=== PATIENT | female | born 1995 | race Caucasian/White ===

== ENCOUNTER 2016-08-05 16:10 | Emergency (ER) | payer BC ==
[2016-08-05 16:20] VITALS: TEMP 98.5
[2016-08-05] MEDS ORDERED: IPRATROPIUM-ALBUTEROL 3 ML NEB INHALATION STA (17:27)
[2016-08-05] MEDS ORDERED: SODIUM CHLORIDE 0.9% 1,000 ML IV STA (17:27)
[2016-08-05] MEDS ORDERED: methylPREDNISolone SOD SUCCI 125 MG/2 ML VIAL IV STA (17:27)
[2016-08-05] MEDS ORDERED: IBUPROFEN 800 MG TAB PO STA (18:05)
[2016-08-05] MEDS ORDERED: ACETAMINOPHEN TAB 500 MG TAB PO STA (18:05)
--- NOTE | 2016-08-05 18:06 | ED ---
URI HPI - General Chief Complaint: Upper Respiratory Infection Stated Complaint: Cough/Wheezing Time Seen by Provider: 08/05/16 17:08 Source: patient, RN notes reviewed, old records reviewed Mode of arrival: ambulatory Limitations: no limitations - History of Present Illness Initial Comments: This is a 21-year-old female with chief complaint of cough and shortness of breath and wheezing for the past month and a half. Patient reports that she is a smoker. She reports that she was diagnosed with asthmatic bronchitis approximately a month and a half ago and was started on by mouth steroids and antibiotics. Patient reports that 3 days after taking these she return to her current status. She reports that she was been doing albuterol breathing treatments at home. She also reports that she's been extremely fatigued over the past 2 days. Patient denies any nausea or vomiting. He denies abdominal pain. She reports that she does have some pain on her bilateral ribs whenever taking a deep breath. She states that she she may have pneumonia. She did have intermittent fever yesterday. No Motrin or Tylenol. - Related Data Home Medications Medication Instructions Recorded Confirmed Sertraline [Zoloft] 100 mg PO HS 11/21/14 08/05/16 Albuterol Nebulized [Ventolin 2.5 mg INHALATION RT-Q6H PRN 12/21/14 08/05/16 Nebulized] Albuterol Inhaler [Ventolin Hfa 1 - 2 puff INHALATION RT-Q6H PRN 11/12/15 Inhaler] Fluticasone Propionate 2 spray EA NOSTRIL DAILY PRN 11/12/15 08/05/16 cloNIDine HCL [Catapres] 0.2 mg PO HS 11/12/15 08/05/16 Previous Rx's Medication Instructions Recorded Ipratropium-Albuterol Nebulize 3 ml INHALATION Q4H #30 neb 08/05/16 [Duoneb 0.5 mg-3 mg/3 ml Soln] Levofloxacin [Levaquin] 750 mg PO DAILY #5 tab 08/05/16 Promethazine/Dextromethorphan 5 ml PO TID #120 ml 08/05/16 [Phenergan DM Syrup] predniSONE 50 mg PO DAILY #7 tab 08/05/16 Allergies Allergy/AdvReac Type Severity Reaction Status Date / Time latex Allergy Rash/Hives Verified 08/05/16 17:33 Review of Systems ROS Statement: Those systems with pertinent positive or pertinent negative responses have been documented in the HPI. ROS Other: All systems not noted in ROS Statement are negative. Past Medical History Past Medical History: Asthma, GERD/Reflux, Pneumonia Additional Past Medical History / Comment(s): anxiety and depression. UTI'S, MIGRAINES, colitis History of Any Multi-Drug Resistant Organisms: None Reported Past Surgical History: No Surgical Hx Reported Past Anesthesia/Blood Transfusion Reactions: No Reported Reaction Additional Past Anesthesia/Blood Transfusion Reaction / Comment(s): NEVER HAD ANY SX Past Psychological History: Anxiety, Depression Additional Psychological History / Comment(s): currently gets counseling yumiko purcell at [facility] in [place]. Is an ongoing tobacco smoker. Did not relate to recreational drug use. Smoking Status: Current every day smoker Past Alcohol Use History: None Reported Additional Past Alcohol Use History / Comment(s): STARTED SMOKING AT AGE 14 SMOKES 1/2 PPD Past Drug Use History: None Reported - Past Family History Father Family Medical History: No Reported History Additional Family Medical History / Comment(s): SEASONAL DEPRESSION Mother Family Medical History: COPD Additional Family Medical History / Comment(s): LEAKY HEART VALVE. ON MOMS SIDE OF FAMILY SKIN CANCER Sister(s) Family Medical History: No Reported History General Exam Limitations: no limitations General appearance: alert Head exam: Present: atraumatic, normocephalic, normal inspection Eye exam: Present: normal appearance, PERRL, EOMI. Absent: scleral icterus, conjunctival injection, periorbital swelling ENT exam: Present: normal exam, mucous membranes moist Neck exam: Present: normal inspection. Absent: tenderness, meningismus, lymphadenopathy Respiratory exam: Present: normal lung sounds bilaterally, wheezes (Patient has significant bilateral wheezing and rhonchi.). Absent: respiratory distress, rales, rhonchi, stridor Cardiovascular Exam: Present: regular rate, normal rhythm, normal heart sounds. Absent: systolic murmur, diastolic murmur, rubs, gallop, clicks GI/Abdominal exam: Present: soft, normal bowel sounds. Absent: distended, tenderness, guarding, rebound, rigid Extremities exam: Present: normal inspection, full ROM, normal capillary refill. Absent: tenderness, pedal edema, joint swelling, calf tenderness Back exam: Present: normal inspection Neurological exam: Present: alert, oriented X3, CN II-XII intact Psychiatric exam: Present: normal affect, normal mood Skin exam: Present: warm, dry, intact, normal color. Absent: rash Course Vital Signs 08/05/16 08/05/16 08/05/16 16:17 17:47 17:48 Temperature 98.5 F Pulse Rate 108 H 95 Respiratory 20 16 Rate Blood Pressure 120/80 O2 Sat by Pulse 95 Oximetry 08/05/16 08/05/16 18:06 19:24 Temperature Pulse Rate 96 105 H Respiratory 20 Rate Blood Pressure 130/67 O2 Sat by Pulse 99 Oximetry Medical Decision Making - Medical Decision Making This is a 21-year-old female with chief complaint of cough and shortness of breath and wheezing for the past month and a half. Patient reports that she is a smoker. She reports that she was diagnosed with asthmatic bronchitis approximately a month and a half ago and was started on by mouth steroids and antibiotics. Patient reports that 3 days after taking these she return to her current status. She reports that she was been doing albuterol breathing treatments at home. She also reports that she's been extremely fatigued over the past 2 days. Patient has significant rhonchi and wheezing. Given double duoneb treatment IV steroids, fluids, and labs obtained. Labs relatively unremarkable, mild leukocytsis. Patient has a clear CXR no pneumonia present. However givne patient clinical presentation, I will treat patient for pneumonia with steriod, levaquin, and douneb breathing treatment and cough syrup. Discussed the importance of quitting smoking. Patient understands treatment plan and will comply. Return parameters discussed, as well as close follow up with PCP. - Lab Data Result diagrams: 08/05/16 18:00 08/05/16 18:00 Lab Results 08/05/16 08/05/16 08/05/16 Range/Units 18:00 18:00 18:00 WBC 11.9 H (4.0-11.0) k/uL RBC 5.19 (3.80-5.40) m/uL Hgb 15.7 (11.4-16.0) gm/dL Hct 48.1 H (34.0-46.0) % MCV 92.6 (80.0-100.0) fL MCH 30.2 (25.0-35.0) pg MCHC 32.6 (31.0-37.0) g/dL RDW 13.7 (11.5-15.5) % Plt Count 336 (150-450) k/uL Neutrophils % 65 % Lymphocytes % 22 % Monocytes % 4 % Eosinophils % 7 % Basophils % 1 % Neutrophils # 7.7 (1.3-7.7) k/uL Lymphocytes # 2.6 (1.0-4.8) k/uL Monocytes # 0.4 (0-1.0) k/uL Eosinophils # 0.9 H (0-0.7) k/uL Basophils # 0.1 (0-0.2) k/uL PT 10.5 (9.0-12.0) sec INR 1.0 (<1.1) APTT 24.6 (22.0-30.0) sec D-Dimer 0.34 (<0.60) mg/L FEU Sodium 141 (137-145) mmol/L Potassium 4.6 (3.5-5.1) mmol/L Chloride 104 (98-107) mmol/L Carbon Dioxide 26 (22-30) mmol/L Anion Gap 11 mmol/L BUN 8 (7-17) mg/dL Creatinine 0.65 (0.52-1.04) mg/dL Est GFR (MDRD) Af Amer >60 (>60 ml/min/1.73 sqM) Est GFR (MDRD) Non-Af >60 (>60 ml/min/1.73 sqM) Glucose 91 (74-99) mg/dL Calcium 9.7 (8.4-10.2) mg/dL Magnesium 1.9 (1.6-2.3) mg/dL Total Bilirubin 0.9 (0.2-1.3) mg/dL AST 22 (14-36) U/L ALT 20 (9-52) U/L Alkaline Phosphatase 82 (38-126) U/L Total Protein 7.8 (6.3-8.2) g/dL Albumin 4.4 (3.5-5.0) g/dL Disposition Clinical Impression: Pneumonia Disposition: HOME SELF-CARE Condition: Good Instructions: Pneumonia (ED) Additional Instructions: Patient has a follow-up with your primary care provider on Sunday. Patient strongly encouraged to quit smoking. Completely anabiotic prescription steroid prescriptions. Use cough syrup and DuoNeb treatments as directed. Prescriptions: Ipratropium-Albuterol Nebulize [Duoneb 0.5 mg-3 mg/3 ml Soln] 3 ml INHALATION Q4H #30 neb Levofloxacin [Levaquin] 750 mg PO DAILY #5 tab Promethazine/Dextromethorphan [Phenergan DM Syrup] 5 ml PO TID #120 ml predniSONE 50 mg PO DAILY #7 tab Referrals: Kenton Vo MD [Primary Care Provider] - 1-2 days Time of Disposition: 19:05
[2016-08-05 18:20] LABS: Basophils # (A) 0.1 k/uL (0-0.2); Basophils % (A) 1 %; CH 31.4; CHCM 34.1; Eosinophils # (A) 0.9 k/uL (0-0.7); Eosinophils % (A) 7 %; HCT 48.1 % (34.0-46.0); HDW 2.55; HGB 15.7 gm/dL (11.4-16.0); Luc % (Auto) 2; Lymphocytes # (A) 2.6 k/uL (1.0-4.8); Lymphocytes % (A) 22 %; MCH 30.2 pg (25.0-35.0); MCHC 32.6 g/dL (31.0-37.0); MCV 92.6 fL (80.0-100.0); Mean Platelet Volume 6.8; Monocytes # (A) 0.4 k/uL (0-1.0); Monocytes % (A) 4 %; Neutrophils # (A) 7.7 k/uL (1.3-7.7); Neutrophils % (A) 65 %; RBC 5.19 m/uL (3.80-5.40); RDW 13.7 % (11.5-15.5); WBC 11.9 k/uL (4.0-11.0); WBC (Perox) 12.44
[2016-08-05 18:28] LABS: ALT 20 U/L (9-52); AST 22 U/L (14-36); Alkaline Phosphatase 82 U/L (38-126); Anion Gap 11 mmol/L; Blood Urea Nitrogen 8 mg/dL (7-17); Calcium 9.7 mg/dL (8.4-10.2); Carbon Dioxide 26 mmol/L (22-30); Chloride 104 mmol/L (98-107); Glucose 91 mg/dL (74-99); Magnesium 1.9 mg/dL (1.6-2.3); Non-African American GFR(MDRD) >60 (>60 ml/min/1.73 sqM); Potassium 4.6 mmol/L (3.5-5.1); Sodium 141 mmol/L (137-145); Total Bilirubin 0.9 mg/dL (0.2-1.3); Total Protein 7.8 g/dL (6.3-8.2)
[2016-08-05 18:33] LABS: Partial Thromboplastin Time 24.6 sec (22.0-30.0); Prothrombin Time 10.5 sec (9.0-12.0)
--- NOTE | 2016-08-05 18:53 | XR ---
EXAMINATION TYPE: XR chest 2V DATE OF EXAM: 08/05/2016 6:34 PM COMPARISON: 02/03/2016 INDICATION: Difficulty breathing cough congestion wheezing TECHNIQUE: Single frontal view of the chest is obtained. FINDINGS: The heart size is normal. The pulmonary vasculature is normal. The lungs are clear. IMPRESSION: 1. No acute pulmonary process.
[2016-08-05 19:26] VITALS: BP 130/67; PULSE 105; RESP 20
== END 2016-08-05 19:27 | disposition home or self-care (01) ==
LOC: EC 16:10
DX: J18.9 Pneumonia, unspecified organism (principal); D72.829 Elevated white blood cell count, unspecified; F32.9 Major depressive disorder, single episode, unspecified; F41.9 Anxiety disorder, unspecified; F17.200 Nicotine dependence, unspecified, uncomplicated; Z79.899 Other long term (current) drug therapy; Z91.040 Latex allergy status; Z82.5 Family history of asthma and other chronic lower respiratory diseases
CPT/HCPCS: 99284; 96374; 36415; 94640; 85379; 80053; 83735; 85025; 85610; 85730; 71020; J2930

== ENCOUNTER 2016-10-01 18:12 | Inpatient (IN) | payer BC ==
[2016-10-01] MEDS ORDERED: IPRATROPIUM-ALBUTEROL 3 ML NEB INHALATION STA (18:36)
[2016-10-01] MEDS ORDERED: methylPREDNISolone SOD SUCCI 125 MG/2 ML VIAL IV STA (18:37)
[2016-10-01] MEDS ORDERED: SODIUM CHLORIDE 0.9% 1,000 ML IV STA (18:37)
--- NOTE | 2016-10-01 18:49 | ED ---
SOB HPI - General Chief Complaint: Shortness of Breath Stated Complaint: BI Time Seen by Provider: 10/01/16 18:30 Source: patient, RN notes reviewed, old records reviewed Mode of arrival: ambulatory Limitations: no limitations - History of Present Illness Initial Comments: 21-year-old female presenting to emergency Department chief complaint of increased shortness of breath, cough and wheezing for the past few days. She states that she is still smoking. She reports that she has cut down immensely over the past few months. Patient states that she has had a productive cough. Denies any fever or chills. Patient reports that she's been taking previously prescribed antibiotics for her she's had them left over. She also states that she did take a steroid pill does not know the milligrams earlier today. Patient states that she has not been able to get a deep breath. Her oxygen saturation coming to the emergency department was 93% on room air. Heart rate 123. Patient denies any vomiting, abdominal pain. - Related Data Home Medications Medication Instructions Recorded Confirmed Albuterol Inhaler [Ventolin Hfa 1 - 2 puff INHALATION RT-Q6H PRN 11/12/15 Inhaler] cloNIDine HCL [Catapres] 0.2 mg PO HS 11/12/15 10/01/16 Ipratropium-Albuterol Nebulize 3 ml INHALATION RT-Q4H PRN 10/01/16 10/01/16 [Duoneb 0.5 mg-3 mg/3 ml Soln] Allergies Allergy/AdvReac Type Severity Reaction Status Date / Time latex Allergy Rash/Hives Verified 10/01/16 18:45 Review of Systems ROS Statement: Those systems with pertinent positive or pertinent negative responses have been documented in the HPI. ROS Other: All systems not noted in ROS Statement are negative. Past Medical History Past Medical History: Asthma, GERD/Reflux, Pneumonia Additional Past Medical History / Comment(s): UTI'S, MIGRAINES, colitis History of Any Multi-Drug Resistant Organisms: None Reported Past Surgical History: No Surgical Hx Reported Past Anesthesia/Blood Transfusion Reactions: No Reported Reaction Additional Past Anesthesia/Blood Transfusion Reaction / Comment(s): NEVER HAD ANY SX Past Psychological History: Anxiety, Depression Smoking Status: Current every day smoker Past Alcohol Use History: None Reported Past Drug Use History: None Reported - Past Family History Father Family Medical History: No Reported History Additional Family Medical History / Comment(s): SEASONAL DEPRESSION Mother Family Medical History: COPD Additional Family Medical History / Comment(s): LEAKY HEART VALVE. ON MOMS SIDE OF FAMILY SKIN CANCER Sister(s) Family Medical History: No Reported History General Exam - General Exam Comments Initial Comments: 21-year-old female. No acute distress. Limitations: no limitations General appearance: alert, in no apparent distress Head exam: Present: atraumatic, normocephalic, normal inspection Eye exam: Present: normal appearance, PERRL, EOMI. Absent: scleral icterus, conjunctival injection, periorbital swelling ENT exam: Present: normal exam, mucous membranes moist Neck exam: Present: normal inspection. Absent: tenderness, meningismus, lymphadenopathy Respiratory exam: Present: normal lung sounds bilaterally, wheezes (Patient has severe wheezing over bilateral lungs.). Absent: respiratory distress, rales, rhonchi, stridor Cardiovascular Exam: Present: regular rate, normal rhythm, normal heart sounds. Absent: systolic murmur, diastolic murmur, rubs, gallop, clicks GI/Abdominal exam: Present: soft, normal bowel sounds. Absent: distended, tenderness, guarding, rebound, rigid Extremities exam: Present: normal inspection, full ROM, normal capillary refill. Absent: tenderness, pedal edema, joint swelling, calf tenderness Back exam: Present: normal inspection Neurological exam: Present: alert, oriented X3, CN II-XII intact Psychiatric exam: Present: normal affect, normal mood Skin exam: Present: warm, dry, intact, normal color. Absent: rash Course Vital Signs 10/01/16 10/01/16 10/01/16 18:14 18:52 19:12 Temperature 98.4 F Pulse Rate 116 H 117 H 111 H Respiratory 20 Rate Blood Pressure 108/56 O2 Sat by Pulse 96 Oximetry 10/01/16 10/01/16 20:36 22:30 Temperature 97.9 F Pulse Rate 74 78 Respiratory 18 18 Rate Blood Pressure 123/71 127/78 O2 Sat by Pulse 100 97 Oximetry Medical Decision Making - Medical Decision Making 21-year-old female. Patient has difficulty breathing for the past few days. She does report to smoking. Patient has significant wheezing bilaterally. Patient does have a productive cough as well. Patient given Double douneb treatment, IV steriods and started on 3L nasal cannula. Patient continues to be very short of breath and uncomfortable after breathing treatment with ice. Patient will be admitted to Dr. Wilde, case discussed with TUAN Borges. PAtient started on steroids Q6H. Sliding scale as well. REturn diameters show no acute process. Returh parameters discyssed. - Lab Data Result diagrams: 10/01/16 19:40 10/01/16 19:40 Lab Results 10/01/16 10/01/16 10/01/16 Range/Units 19:25 19:25 19:40 WBC 17.9 H (4.0-11.0) k/uL RBC 4.74 (3.80-5.40) m/uL Hgb 15.0 (11.4-16.0) gm/dL Hct 42.5 (34.0-46.0) % MCV 89.8 (80.0-100.0) fL MCH 31.6 (25.0-35.0) pg MCHC 35.3 (31.0-37.0) g/dL RDW 13.6 (11.5-15.5) % Plt Count 366 (150-450) k/uL Neutrophils % 86 % Lymphocytes % 6 % Monocytes % 2 % Eosinophils % 5 % Basophils % 0 % Neutrophils # 15.4 H (1.3-7.7) k/uL Lymphocytes # 1.1 (1.0-4.8) k/uL Monocytes # 0.4 (0-1.0) k/uL Eosinophils # 0.9 H (0-0.7) k/uL Basophils # 0.1 (0-0.2) k/uL PT (9.0-12.0) sec INR (<1.1) APTT (22.0-30.0) sec D-Dimer (<0.60) mg/L FEU Sodium (137-145) mmol/L Potassium (3.5-5.1) mmol/L Chloride (98-107) mmol/L Carbon Dioxide (22-30) mmol/L Anion Gap mmol/L BUN (7-17) mg/dL Creatinine (0.52-1.04) mg/dL Est GFR (MDRD) Af Amer (>60 ml/min/1.73 sqM) Est GFR (MDRD) Non-Af (>60 ml/min/1.73 sqM) Glucose (74-99) mg/dL Calcium (8.4-10.2) mg/dL Magnesium (1.6-2.3) mg/dL Total Bilirubin (0.2-1.3) mg/dL AST (14-36) U/L ALT (9-52) U/L Alkaline Phosphatase (38-126) U/L Total Creatine Kinase (30-135) U/L CK-MB (CK-2) (0.0-2.4) ng/mL CK-MB (CK-2) Rel Index Troponin I (0.000-0.034) ng/mL Total Protein (6.3-8.2) g/dL Albumin (3.5-5.0) g/dL Urine Color Light Yellow Urine Appearance Clear (Clear) Urine pH 6.5 (5.0-8.0) Ur Specific [place] 1.006 (1.001-1.035) Urine Protein Negative (Negative) Urine Glucose (UA) Negative (Negative) Urine Ketones 1+ H (Negative) Urine Blood Negative (Negative) Urine Nitrite Negative (Negative) Urine Bilirubin Negative (Negative) Urine Urobilinogen <2.0 (<2.0) mg/dL Ur Leukocyte Esterase Negative (Negative) Urine HCG, Qual Not Detected (Not Detectd) 10/01/16 10/01/16 10/01/16 Range/Units 19:40 19:40 19:40 WBC (4.0-11.0) k/uL RBC (3.80-5.40) m/uL Hgb (11.4-16.0) gm/dL Hct (34.0-46.0) % MCV (80.0-100.0) fL MCH (25.0-35.0) pg MCHC (31.0-37.0) g/dL RDW (11.5-15.5) % Plt Count (150-450) k/uL Neutrophils % % Lymphocytes % % Monocytes % % Eosinophils % % Basophils % % Neutrophils # (1.3-7.7) k/uL Lymphocytes # (1.0-4.8) k/uL Monocytes # (0-1.0) k/uL Eosinophils # (0-0.7) k/uL Basophils # (0-0.2) k/uL PT 11.1 (9.0-12.0) sec INR 1.1 (<1.1) APTT 25.0 (22.0-30.0) sec D-Dimer 0.66 H (<0.60) mg/L FEU Sodium 143 (137-145) mmol/L Potassium 4.2 (3.5-5.1) mmol/L Chloride 104 (98-107) mmol/L Carbon Dioxide 24 (22-30) mmol/L Anion Gap 15 mmol/L BUN 7 (7-17) mg/dL Creatinine 0.70 (0.52-1.04) mg/dL Est GFR (MDRD) Af Amer >60 (>60 ml/min/1.73 sqM) Est GFR (MDRD) Non-Af >60 (>60 ml/min/1.73 sqM) Glucose 106 H (74-99) mg/dL Calcium 10.1 (8.4-10.2) mg/dL Magnesium 1.8 (1.6-2.3) mg/dL Total Bilirubin 0.8 (0.2-1.3) mg/dL AST 24 (14-36) U/L ALT 28 (9-52) U/L Alkaline Phosphatase 98 (38-126) U/L Total Creatine Kinase 47 (30-135) U/L CK-MB (CK-2) 1.3 (0.0-2.4) ng/mL CK-MB (CK-2) Rel Index 2.8 Troponin I <0.012 (0.000-0.034) ng/mL Total Protein 7.3 (6.3-8.2) g/dL Albumin 4.4 (3.5-5.0) g/dL Urine Color Urine Appearance (Clear) Urine pH (5.0-8.0) Ur Specific [place] (1.001-1.035) Urine Protein (Negative) Urine Glucose (UA) (Negative) Urine Ketones (Negative) Urine Blood (Negative) Urine Nitrite (Negative) Urine Bilirubin (Negative) Urine Urobilinogen (<2.0) mg/dL Ur Leukocyte Esterase (Negative) Urine HCG, Qual (Not Detectd) 10/01/16 19:28 EKG shows sinus tachycardia 120 bpm period. Verbal 120 ms. QRS duration 78 ms. QT/QTc is 306/432 ms. Disposition Clinical Impression: Shortness of breath Disposition: ADMITTED IP TO THIS HOSP Condition: Good Time of Disposition: 21:59
[2016-10-01 19:58] LABS: Appearance,Urine Clear (Clear); Bilirubin,Urine Negative (Negative); Glucose,Urine (UA) Negative (Negative); Ketones,Urine 1+ (Negative); Leukocyte Esterase,Urine Negative (Negative); Nitrite,Urine Negative (Negative); PH, Urine 6.5 (5.0-8.0); Protein,Urine Negative (Negative); Specific Gravity,Urine 1.006 (1.001-1.035); UA Billing (MACRO vs. MICRO) CHEM; Urobilinogen,Urine <2.0 mg/dL (<2.0)
[2016-10-01 19:58] LABS: Basophils # (A) 0.1 k/uL (0-0.2); Basophils % (A) 0 %; CH 31.9; CHCM 35.6; Eosinophils # (A) 0.9 k/uL (0-0.7); Eosinophils % (A) 5 %; HCT 42.5 % (34.0-46.0); HDW 2.65; Luc % (Auto) 1; Lymphocytes # (A) 1.1 k/uL (1.0-4.8); Lymphocytes % (A) 6 %; MCH 31.6 pg (25.0-35.0); MCHC 35.3 g/dL (31.0-37.0); MCV 89.8 fL (80.0-100.0); Mean Platelet Volume 6.7; Monocytes # (A) 0.4 k/uL (0-1.0); Monocytes % (A) 2 %; Neutrophils # (A) 15.4 k/uL (1.3-7.7); Neutrophils % (A) 86 %; RBC 4.74 m/uL (3.80-5.40); RDW 13.6 % (11.5-15.5); WBC 17.9 k/uL (4.0-11.0); WBC (Perox) 16.81
[2016-10-01 20:09] LABS: ALT 28 U/L (9-52); AST 24 U/L (14-36); Alkaline Phosphatase 98 U/L (38-126); Anion Gap 15 mmol/L; Blood Urea Nitrogen 7 mg/dL (7-17); Calcium 10.1 mg/dL (8.4-10.2); Carbon Dioxide 24 mmol/L (22-30); Chloride 104 mmol/L (98-107); Glucose 106 mg/dL (74-99); Magnesium 1.8 mg/dL (1.6-2.3); Non-African American GFR(MDRD) >60 (>60 ml/min/1.73 sqM); Potassium 4.2 mmol/L (3.5-5.1); Sodium 143 mmol/L (137-145); Total Bilirubin 0.8 mg/dL (0.2-1.3); Total Protein 7.3 g/dL (6.3-8.2)
[2016-10-01 20:23] LABS: INR 1.1 (<1.1); Prothrombin Time 11.1 sec (9.0-12.0)
[2016-10-01 20:25] LABS: Creatine Kinase 47 U/L (30-135)
--- NOTE | 2016-10-01 20:27 | XR ---
EXAMINATION TYPE: XR chest 2V DATE OF EXAM: 10/01/2016 COMPARISON: 08/05/2016 HISTORY: Chest pain TECHNIQUE: Frontal and lateral views of the chest are obtained. FINDINGS: There is no focal air space opacity. No evidence for pneumothorax. No pleural effusion. The cardiac silhouette size is within normal limits. The osseous structures are grossly intact. IMPRESSION: 1. No acute cardiopulmonary process.
[2016-10-01 20:38] LABS: Creatine Kinase MB 1.3 ng/mL (0.0-2.4); Troponin I <0.012 ng/mL (0.000-0.034)
[2016-10-01] MEDS ORDERED: RX INFO: IV CONTRAST WAS GIVEN 1 EACH MISC MISCELLANE PRN (20:43)
--- NOTE | 2016-10-01 21:37 | CT ---
EXAMINATION TYPE: CT chest angio for PE DATE OF EXAM: 10/01/2016 COMPARISON: NONE HISTORY: Cough, Chest pain and shortness of breath for [address] DLP: 325 mGycm CONTRAST: CT chest with contrast and 3D reconstruction with MIP imaging is performed with IV Contrast, patient injected with 100 mL of Omnipaque 350. Contrast-enhanced CT of the chest was performed through the course of the pulmonary arteries with julia g and mediastinal window settings submitted. 3D reconstruction with MIP imaging was also performed. PULMONARY ARTERIES: The pulmonary arteries and their major tributaries are patent. I do not see asad dence for sizable filling defect to suggest pulmonary embolic process. LUNGS: Scattered groundglass infiltrates may reflect acute inflammatory process. No evidence for atel ectasis. No pulmonary nodule or mass is detected. No pleural effusion. MEDIASTINUM: Thoracic aorta is of normal caliber . The heart is not enlarged. No evidence for media stinal mass. No mediastinal lymph nodes greater than 1cm. HILAR STRUCTURES: No evidence for mass. No hilar lymph nodes greater than 1 cm. UPPER ABDOMEN: No significant abnormality is seen. IMPRESSION: 1. No evidence for Pulmonary embolism at this time. 2. Scattered groundglass infiltrates may reflect the acute inflammatory process.
[2016-10-01] MEDS ORDERED: LEVOFLOXACIN 750MG-D5W PMX 750 MG in DEXTROSE/WATER 1 150ML.BAG IVPB STA (22:09)
[2016-10-01] MEDS: SODIUM CHLORIDE 0.9% 1,000 ML IV SCH (22:25)
[2016-10-01] MEDS: BENZONATATE 100 MG CAP PO SCH (22:28)
[2016-10-01] MEDS: methylPREDNISolone SOD SUCCI 125 MG/2 ML VIAL IV SCH (23:08)
[2016-10-01] MEDS: NICOTINE 14MG/24HR PATCH TRANSDERM SCH (23:08)
[2016-10-02] MEDS: cloNIDine HCL 0.2 MG TAB PO SCH ×2 (00:05→21:50)
[2016-10-02] MEDS: methylPREDNISolone SOD SUCCI 125 MG/2 ML VIAL IV SCH ×4 (06:44→23:21)
[2016-10-02 07:29] LABS: Glucose,Whole Blood 185 mg/dL (75-99)
[2016-10-02] MEDS: BENZONATATE 100 MG CAP PO SCH ×3 (07:55→21:50)
[2016-10-02] MEDS: INSULIN LISPRO (humaLOG) 300 UNIT/3 ML VIAL SQ SCH ×4 (07:55→21:44)
[2016-10-02] MEDS: SODIUM CHLORIDE 0.9% 1,000 ML IV SCH ×2 (07:56→17:23)
[2016-10-02] MEDS ORDERED: CALCIUM CARBONATE 500 MG CHEWABLE PO PRN (07:58)
[2016-10-02] MEDS: IPRATROPIUM-ALBUTEROL 3 ML NEB INHALATION SCH ×5 (08:01→19:34)
[2016-10-02 12:18] LABS: Glucose,Whole Blood 144 mg/dL (75-99)
[2016-10-02 13:16] LABS: Hemoglobin A1C 5.3 % (4.2-6.1)
[2016-10-02 17:13] LABS: Glucose,Whole Blood 143 mg/dL (75-99)
[2016-10-02 21:04] LABS: Glucose,Whole Blood 128 mg/dL (75-99)
[2016-10-02] MEDS: NICOTINE 14MG/24HR PATCH TRANSDERM SCH (21:50)
[2016-10-03] MEDS: SODIUM CHLORIDE 0.9% 1,000 ML IV SCH (05:28)
[2016-10-03] MEDS: methylPREDNISolone SOD SUCCI 125 MG/2 ML VIAL IV SCH ×2 (06:17→12:25)
[2016-10-03 07:22] LABS: Glucose,Whole Blood 165 mg/dL (75-99)
[2016-10-03] MEDS: INSULIN LISPRO (humaLOG) 300 UNIT/3 ML VIAL SQ SCH ×4 (07:35→21:38)
[2016-10-03] MEDS: BENZONATATE 100 MG CAP PO SCH ×3 (07:35→21:38)
[2016-10-03] MEDS: IPRATROPIUM-ALBUTEROL 3 ML NEB INHALATION SCH ×4 (07:54→19:34)
[2016-10-03 11:35] LABS: Glucose,Whole Blood 142 mg/dL (75-99)
[2016-10-03] MEDS: LEVOFLOXACIN 500MG-D5W PMX 500 MG in DEXTROSE/WATER 1 100ML.BAG IVPB SCH (12:35)
[2016-10-03] MEDS: methylPREDNISolone SOD SUCCI 40 MG/ML 1 ML VIAL IV SCH (15:52)
[2016-10-03 17:16] LABS: Glucose,Whole Blood 122 mg/dL (75-99)
[2016-10-03] MEDS: SYMBICORT 160-4.5 MCG INHALER INHALATION SCH (19:34)
[2016-10-03 21:22] LABS: Glucose,Whole Blood 139 mg/dL (75-99)
[2016-10-03] MEDS: cloNIDine HCL 0.2 MG TAB PO SCH (21:38)
[2016-10-03] MEDS: NICOTINE 14MG/24HR PATCH TRANSDERM SCH (21:40)
[2016-10-04] MEDS: methylPREDNISolone SOD SUCCI 40 MG/ML 1 ML VIAL IV SCH ×4 (00:03→23:58)
[2016-10-04 07:16] LABS: Basophils % (A) 0 %; CH 30.7; CHCM 32.4; Eosinophils % (A) 0 %; HCT 41.6 % (34.0-46.0); HDW 2.69; HGB 13.9 gm/dL (11.4-16.0); Luc # (Auto) 0.15; Luc % (Auto) 1; Lymphocytes # (A) 1.3 k/uL (1.0-4.8); Lymphocytes % (A) 5 %; MCH 31.8 pg (25.0-35.0); MCHC 33.3 g/dL (31.0-37.0); Mean Platelet Volume 6.9; Monocytes # (A) 0.6 k/uL (0-1.0); Monocytes % (A) 2 %; Neutrophils # (A) 23.3 k/uL (1.3-7.7); Neutrophils % (A) 92 %; RBC 4.36 m/uL (3.80-5.40); RDW 13.6 % (11.5-15.5); WBC (Perox) 24.86
[2016-10-04 07:24] LABS: Glucose,Whole Blood 139 mg/dL (75-99)
[2016-10-04 07:34] LABS: Anion Gap 12 mmol/L; Blood Urea Nitrogen 8 mg/dL (7-17); Calcium 9.7 mg/dL (8.4-10.2); Carbon Dioxide 24 mmol/L (22-30); Chloride 108 mmol/L (98-107); Glucose 138 mg/dL (74-99); Non-African American GFR(MDRD) >60 (>60 ml/min/1.73 sqM); Potassium 4.7 mmol/L (3.5-5.1); Sodium 144 mmol/L (137-145)
[2016-10-04 07:53] LABS: MCV 95.5 fL (80.0-100.0); WBC 25.4 k/uL (4.0-11.0)
[2016-10-04] MEDS: INSULIN LISPRO (humaLOG) 300 UNIT/3 ML VIAL SQ SCH ×4 (08:06→22:06)
[2016-10-04] MEDS: BENZONATATE 100 MG CAP PO SCH ×3 (08:06→22:06)
[2016-10-04 08:14] LABS: Manual Review Performed; Toxic Granulation Present
[2016-10-04] MEDS: IPRATROPIUM-ALBUTEROL 3 ML NEB INHALATION SCH ×4 (08:55→19:47)
[2016-10-04] MEDS: SYMBICORT 160-4.5 MCG INHALER INHALATION SCH ×2 (08:55→19:47)
[2016-10-04] MEDS ORDERED: IPRATROPIUM-ALBUTEROL 3 ML NEB INHALATION PRN (10:21)
[2016-10-04] MEDS: PANTOPRAZOLE 40 MG TABLET PO SCH ×2 (11:33→17:12)
[2016-10-04 12:24] LABS: Glucose,Whole Blood 119 mg/dL (75-99)
[2016-10-04] MEDS: LEVOFLOXACIN 500MG-D5W PMX 500 MG in DEXTROSE/WATER 1 100ML.BAG IVPB SCH (13:30)
[2016-10-04 17:01] LABS: Glucose,Whole Blood 131 mg/dL (75-99)
[2016-10-04] MEDS ORDERED: ACETAMINOPHEN TAB 325 MG TAB PO PRN (17:14)
[2016-10-04 21:02] LABS: Glucose,Whole Blood 174 mg/dL (75-99)
[2016-10-04] MEDS: NICOTINE 14MG/24HR PATCH TRANSDERM SCH (22:06)
[2016-10-04] MEDS: cloNIDine HCL 0.2 MG TAB PO SCH (22:12)
[2016-10-05 07:11] LABS: Glucose,Whole Blood 122 mg/dL (75-99)
[2016-10-05] MEDS: IPRATROPIUM-ALBUTEROL 3 ML NEB INHALATION SCH (07:16)
[2016-10-05] MEDS: SYMBICORT 160-4.5 MCG INHALER INHALATION SCH (07:16)
[2016-10-05 07:24] VITALS: BP 117/78; RESP 16; TEMP 96.8
[2016-10-05 07:29] VITALS: PULSE 92
[2016-10-05] MEDS: INSULIN LISPRO (humaLOG) 300 UNIT/3 ML VIAL SQ SCH (07:49)
[2016-10-05] MEDS: BENZONATATE 100 MG CAP PO SCH (08:01)
[2016-10-05] MEDS: PANTOPRAZOLE 40 MG TABLET PO SCH (08:01)
[2016-10-05] MEDS: methylPREDNISolone SOD SUCCI 40 MG/ML 1 ML VIAL IV SCH (08:02)
--- NOTE | 2016-10-05 09:04 | P.DS ---
Providers Date of admission: 10/01/16 22:16 Attending physician: Aaron Carter Primary care physician: Aaron Carter [facility] Course: The patient is a 21 yo female admitted for wheezing and asthma. She was medically stabilized with IV steroids and discharged in fair condietion. FU with me in 5-7 days. Amblating and tolerating diet. No fever on DC Patient Condition at Discharge: Stable Plan - Discharge Summary New Discharge Prescriptions: New predniSONE 0 mg PO DIRECTED #18 tab No Action Albuterol Inhaler [Ventolin Hfa Inhaler] 1 - 2 puff INHALATION RT-Q6H PRN PRN Reason: Shortness Of Breath cloNIDine HCL [Catapres] 0.2 mg PO HS Ipratropium-Albuterol Nebulize [Duoneb 0.5 mg-3 mg/3 ml Soln] 3 ml INHALATION RT-Q4H PRN PRN Reason: Shortness Of Breath Discharge Medication List Albuterol Inhaler [Ventolin Hfa Inhaler] 1 - 2 puff INHALATION RT-Q6H PRN [History] cloNIDine HCL [Catapres] 0.2 mg PO HS 11/12/15 [History] Ipratropium-Albuterol Nebulize [Duoneb 0.5 mg-3 mg/3 ml Soln] 3 ml INHALATION RT -Q4H PRN 10/01/16 [History] predniSONE 0 mg PO DIRECTED #18 tab 10/05/16 [Rx] Follow up Appointment(s)/Referral(s): Aaron Carter MD [Primary Care Provider] - 1 Week Discharge Disposition: HOME SELF-CARE
[2016-10-05] MEDS ORDERED: LEVOFLOXACIN 500 MG TAB PO SCH (13:00)
--- NOTE | 2016-10-08 13:56 | PN ---
DATE OF SERVICE: 10/03/16 This 21 year old woman was admitted with COPD acute exacerbation, acute purulent tracheobronchitis, the patient on IV steroids. No chest pain. No palpitations. No fever. On exam, alert and oriented times three. The pulse is 93. Blood pressure 106/ 79. Respiratory rate 16. Temperature 98.2, pulse ox 97% on room air. HEENT: Conjunctivae normal. NECK: No JVD. CARDIOVASCULAR: S1, S2. RESPIRATORY: Breath sounds diminished at the bases. A few scattered rhonchi and crackles. ABDOMEN: Soft, nontender. LEGS: No edema. No swelling. NERVOUS SYSTEM: No focal deficits. LABS: Noted. ASSESSMENT: 1. Acute bronchial asthma, acute exacerbation, acute purulent tracheobronchitis . 2. History of gastrointestinal reflux disease. 3. History of pneumonia. RECOMMENDATIONS AND DISCUSSION: Recommend to continue the current medications. Continue symptomatic treatment. Otherwise, continue bronchodilators and steroids. Dr. Carter will up follow tomorrow. MORIS
--- NOTE | 2016-10-08 14:18 | HP ---
DATE OF SERVICE: 10/02/2016 CHIEF COMPLAINT: Shortness of breath. HISTORY OF PRESENT ILLNESS: This 21-year-old woman with a past medical history of multiple medical problems, being followed by Dr. Carter in the outpatient setting, was complaining of increasing shortness of breath, cough and sputum. The patient has a past medical history of asthma, GERD, pneumonia. There is no history of any fever, rigor, chills. No history of headache, loss of consciousness, seizures. PAST MEDICAL HISTORY: 1. History of asthma. 2. GERD. 3. History of pneumonia. 4. History of UTI. Home medications are reviewed and include: 1. Clonidine. 2. Albuterol inhaler. ALLERGIES: LATEX. FAMILY HISTORY: History of seasonal depression. SOCIAL HISTORY: History of smoking. REVIEW OF SYSTEMS: ENT: No diminished hearing. No diminished vision. CARDIOVASCULAR SYSTEM: No angina. RESPIRATORY SYSTEM: As mentioned earlier. GI: No nausea. : No dysuria, retention. NERVOUS SYSTEM: No numbness, weakness. ALLERGY/IMMUNOLOGY: As mentioned earlier. Asthma. MUSCULOSKELETAL: As mentioned earlier. HEMATOLOGY/ONCOLOGY: No history of anemia. ENDOCRINE: No history of diabetes or hypothyroidism. CONSTITUTIONAL: As mentioned earlier. DERMATOLOGIC: Negative. RHEUMATOLOGIC: Negative. PSYCHIATRY: As mentioned earlier. PHYSICAL EXAMINATION: Patient is alert and oriented x3. Pulse is 98, blood pressure ( ), respiration 16, temperature 96.8, pulse ox 94% on room air. HEENT: Conjunctivae normal. Oral mucosa moist. NECK: No jugular venous congestion. No carotid bruit. No lymph node enlargement. CARDIAC: S1, S2 muffled. No S3. No S4. RESPIRATORY: Breath sounds diminished at the bases. Bilateral scattered rhonchi and crackles. ABDOMEN: Soft, non-tender. No mass palpable. LEGS: No edema. No swelling. NERVOUS SYSTEM: Higher functions as mentioned earlier. Moves all 4 limbs. No focal motor or sensory deficit. LYMPHATICS: No lymph node palpable in neck, axillae or groin. SKIN: No ulcer, rash or bleeding. Labs at this time show WBC 17.9. Other labs noted. ASSESSMENT: 1. Acute bronchial asthma, acute exacerbation, with acute purulent tracheobronchitis. 2. Increased random blood sugar. 3. History of gastroesophageal reflux. 4. History of pneumonia. RECOMMENDATIONS AND DISCUSSION: I recommend to continue current medications, continue symptomatic treatment. I would recommend continuing the bronchodilators , steroids. Closely follow. Further recommendations to follow. MTDD
== END 2016-10-05 10:29 | disposition home or self-care (01) | DRG 203 ==
LOC: EC 18:12 → 4MS4W 22:16
PROVIDERS: ADMIT Family Medicine; ATTEND Family Medicine
DX: J45.909 Unspecified asthma, uncomplicated (principal); F32.9 Major depressive disorder, single episode, unspecified; F17.200 Nicotine dependence, unspecified, uncomplicated; K21.9 Gastro-esophageal reflux disease without esophagitis; F41.9 Anxiety disorder, unspecified; G43.909 Migraine, unspecified, not intractable, without status migrainosus; Z79.899 Other long term (current) drug therapy; Z88.8 Allergy status to other drugs, medicaments and biological substances
CPT/HCPCS: 36415; 71020; 71275; 80048; 80053; 81003; 81025; 82550; 82553; 83036; 83735; 84484; 85025; 85379; 85610; 85730; 87040; 93005; 94640; 94760; 96361; 96365; 96375; 99285

== ENCOUNTER 2017-10-24 17:31 | Emergency (ER) | payer BC, OTHER ==
[2017-10-24 17:59] VITALS: TEMP 98.3
--- NOTE | 2017-10-24 18:27 | ED ---
General Adult HPI - General Chief complaint: Extremity Injury, Upper Stated complaint: IHS - finger injury Time Seen by Provider: 10/24/17 18:01 Source: patient, RN notes reviewed Mode of arrival: ambulatory Limitations: no limitations - History of Present Illness Initial comments: Patient 22-year-old female presented to the emergency room today with a chief complaint of trip and fall that occurred earlier today. Patient states she tripped on uneven cement falling down onto the right hand. She missed pain over the right fifth digit. States worse with certain movements. She denies any symptoms. Patient denies any recent fever, chills, shortness of breath, chest pain, back pain, abdominal pain, nausea or vomiting, headaches or visual changes, or any other complaints. - Related Data Home Medications Medication Instructions Recorded Confirmed Albuterol Inhaler [Ventolin Hfa 1 - 2 puff INHALATION RT-Q6H PRN 11/12/15 Inhaler] cloNIDine HCL [Catapres] 0.2 mg PO HS 11/12/15 10/01/16 Ipratropium-Albuterol Nebulize 3 ml INHALATION RT-Q4H PRN 10/01/16 10/01/16 [Duoneb 0.5 mg-3 mg/3 ml Soln] Previous Rx's Medication Instructions Recorded predniSONE 0 mg PO DIRECTED #18 tab 10/05/16 Allergies Allergy/AdvReac Type Severity Reaction Status Date / Time latex Allergy Rash/Hives Verified 10/24/17 17:59 Review of Systems ROS Statement: Those systems with pertinent positive or pertinent negative responses have been documented in the HPI. ROS Other: All systems not noted in ROS Statement are negative. Past Medical History Past Medical History: Asthma, GERD/Reflux, Pneumonia Additional Past Medical History / Comment(s): UTI'S, MIGRAINES, colitis History of Any Multi-Drug Resistant Organisms: None Reported Past Surgical History: No Surgical Hx Reported Past Anesthesia/Blood Transfusion Reactions: No Reported Reaction Additional Past Anesthesia/Blood Transfusion Reaction / Comment(s): NEVER HAD ANY SX Past Psychological History: Anxiety, Depression Smoking Status: Former smoker Past Alcohol Use History: Occasional Past Drug Use History: Marijuana - Past Family History Father Family Medical History: No Reported History Additional Family Medical History / Comment(s): SEASONAL DEPRESSION Mother Family Medical History: COPD Additional Family Medical History / Comment(s): LEAKY HEART VALVE. ON MOMS SIDE OF FAMILY SKIN CANCER Sister(s) Family Medical History: No Reported History General Exam - General Exam Comments Initial Comments: General: The patient is awake and alert, in no distress, and does not appear acutely ill. Neck: The neck is supple, there is no tenderness or JVD. Musculoskeletal: Patient does have small abrasion over the PIP joint. Superficial. Locally tender over the proximal and distal aspects of the right fifth digit. Mild tenderness over the fifth MCP joint. Shows good range of motion. Her sensations intact. Radial pulses plus. Neurological: A&O x 3. CN II-XII intact, There are no obvious motor or sensory deficits. Coordination appears grossly intact. Speech is normal. Skin: Skin is warm and dry and no rashes. Psychiatric: Normal mood and affect. Limitations: no limitations Course Vital Signs 10/24/17 17:57 Temperature 98.3 F Pulse Rate 62 Respiratory 20 Rate Blood Pressure 101/69 O2 Sat by Pulse 100 Oximetry Medical Decision Making - Medical Decision Making X-rays reviewed negative for any acute fracture dislocation. Results were discussed with the patient. Patient is advised follow-up in 7-10 days if symptoms persist. Disposition Clinical Impression: Finger sprain Disposition: HOME SELF-CARE Condition: Good Instructions: Finger Sprain (ED) Additional Instructions: Please follow-up in 7-10 days for repeat x-rays if symptoms persist as discussed. Please continue to ice elevate the affected area. Please return to emergency room for any other concerns. Is patient prescribed a controlled substance at d/c from ED?: No Referrals: Aaron Carter MD [Primary Care Provider] - 1-2 days Time of Disposition: 18:46
--- NOTE | 2017-10-24 18:38 | XR ---
PROCEDURE: XR hand complete RT-3V DATE AND TIME: 10/24/2017 6:22 PM REFERRING PHYSICIAN: Eran Astudillo CLINICAL INDICATION: PHH, Pain TECHNIQUE: Department protocol. COMPARISON: None FINDINGS: There is no fracture or malalignment. The soft tissues are unremarkable. IMPRESSION: NO ACUTE PROCESS.
[2017-10-24 19:19] VITALS: BP 105/68; PULSE 65; RESP 18
== END 2017-10-24 19:19 | disposition home or self-care (01) ==
LOC: EC 17:31
DX: S63.616A Unspecified sprain of right little finger, initial encounter (principal); J45.909 Unspecified asthma, uncomplicated; F32.9 Major depressive disorder, single episode, unspecified; F41.9 Anxiety disorder, unspecified; Z87.891 Personal history of nicotine dependence; Z79.899 Other long term (current) drug therapy; Z91.040 Latex allergy status; W01.0XXA Fall on same level from slipping, tripping and stumbling without subsequent striking against object, initial encounter; Y99.0 Civilian activity done for income or pay
CPT/HCPCS: 99283

== ENCOUNTER 2017-12-21 11:11 | Emergency (ER) | payer BC, OTHER ==
[2017-12-21 12:10] VITALS: PULSE 63; TEMP 98.1
[2017-12-21] MEDS ORDERED: SODIUM CHLORIDE 0.9% 1,000 ML IV STA (13:21)
--- NOTE | 2017-12-21 13:27 | ED ---
Abdominal Pain HPI - General Chief Complaint: Abdominal Pain Stated Complaint: Vomiting Blood, ABd Pain Time Seen by Provider: 12/21/17 12:09 Source: patient Mode of arrival: ambulatory Limitations: no limitations - History of Present Illness Initial Comments: This is a 22 yo female with past medical history of GERD, esophagitis, hiatal hernia, COPD who presents today for chief complaint of specks of blood in vomit. Pt states that this morning she had severe acid reflux as she often times experiences. Pt states that when this occurs she has experiencing nausea and vomiting in the past. Patient states that this caused her vomit, she denies diffuse blood in the vomit. Pt did admit to mild LUQ pain that felt like the last time she experienced vomiting with specks of blood last May. Patient denies chest trauma, chest pain, shortness of breath, melena/dark stools , hematochezia, hemoptysis, cold intolerance, palpitations or large amounts of blood in the vomit. Pt states that this has happened in the past which led to her diagnosis of a hiatal hernia last May. Which was the date of last scope, pt has not followed up. Pt states that she was concerned when she had another episode later that evening of hemetemesis so she presented to the ER. Upon arrival pt VS stable. Pt appears well and is sitting comfortable. Pt denies . Patient denies any recent fever, chills, shortness of breath, chest pain, back pain, numbness or tingling, dysuria or hematuria, constipation or diarrhea, headaches or visual changes, or any other complaints. - Related Data Home Medications Medication Instructions Recorded Confirmed Albuterol Inhaler [Ventolin Hfa 1 - 2 puff INHALATION RT-Q6H PRN 11/12/15 Inhaler] cloNIDine HCL [Catapres] 0.2 mg PO HS 11/12/15 10/01/16 Ipratropium-Albuterol Nebulize 3 ml INHALATION RT-Q4H PRN 10/01/16 10/01/16 [Duoneb 0.5 mg-3 mg/3 ml Soln] Previous Rx's Medication Instructions Recorded predniSONE 0 mg PO DIRECTED #18 tab 10/05/16 Allergies Allergy/AdvReac Type Severity Reaction Status Date / Time latex Allergy Rash/Hives Verified 12/21/17 12:10 Review of Systems ROS Statement: Those systems with pertinent positive or pertinent negative responses have been documented in the HPI. ROS Other: All systems not noted in ROS Statement are negative. Constitutional: Denies: fever, chills ENT: Denies: ear pain, throat pain Respiratory: Denies: cough, dyspnea, wheezes, hemoptysis, stridor Cardiovascular: Denies: chest pain, palpitations, dyspnea on exertion, orthopnea Endocrine: Denies: fatigue, heat or cold intolerance Gastrointestinal: Reports: as per HPI, vomiting, hematemesis. Denies: nausea, diarrhea, constipation, melena, hematochezia Genitourinary: Denies: urgency, dysuria, frequency, hematuria, discharge Musculoskeletal: Denies: back pain, joint swelling, arthralgia Skin: Denies: rash, lesions Neurological: Denies: headache, weakness, numbness, paresthesias, confusion Past Medical History Past Medical History: Asthma, COPD, GERD/Reflux, Pneumonia Additional Past Medical History / Comment(s): herniated esoph, MIGRAINES, colitis History of Any Multi-Drug Resistant Organisms: None Reported Past Surgical History: No Surgical Hx Reported Past Anesthesia/Blood Transfusion Reactions: No Reported Reaction Additional Past Anesthesia/Blood Transfusion Reaction / Comment(s): NEVER HAD ANY SX Past Psychological History: Anxiety, Depression Smoking Status: Former smoker Past Alcohol Use History: Occasional Past Drug Use History: Marijuana - Past Family History Father Family Medical History: No Reported History Additional Family Medical History / Comment(s): SEASONAL DEPRESSION Mother Family Medical History: COPD Additional Family Medical History / Comment(s): LEAKY HEART VALVE. ON MOMS SIDE OF FAMILY SKIN CANCER Sister(s) Family Medical History: No Reported History General Exam - General Exam Comments Initial Comments: General: The patient is awake and alert, in no distress, and does not appear acutely ill. Eye: Pupils are equal, round and reactive to light, extra-ocular movements are intact. No nystagmus. There is normal conjunctiva bilaterally. No signs of icterus. Ears, nose, mouth and throat: There are moist mucous membranes and no oral lesions. No evidence of blood, posterior epistaxis. Neck: The neck is supple, there is no tenderness or JVD. No crepitus to palpation of the chest, supraclavicular areas. Cardiovascular: There is a regular rate and rhythm. No murmur, rub or gallop is appreciated. Respiratory: Lungs are clear to auscultation, respirations are non-labored, breath sounds are equal. No wheezes, stridor, rales, or rhonchi. Gastrointestinal: Stria over abdomen, no scarring. Soft, non-distended, without masses or organomegaly noted. Mild discomfort to palpation over the LUQ- after repeat exam at 2:30pm no tenderness. There is no rebound or guarding present. No CVA tenderness. Bowel sounds are unremarkable. Musculoskeletal: Normal ROM, no tenderness. Strength 5/5. Sensation intact. Radial pulses equal bilaterally 2+. Neurological: A&O x 3. CN II-XII intact, There are no obvious motor or sensory deficits. Coordination appears grossly intact. Speech is normal. Skin: Skin is warm and dry and no rashes or lesions are noted. Psychiatric: Cooperative, appropriate mood & affect, normal judgment. Limitations: no limitations Course Vital Signs 12/21/17 12/21/17 12:06 14:25 Temperature 98.1 F Pulse Rate 63 63 Respiratory 18 16 Rate Blood Pressure 114/55 118/61 O2 Sat by Pulse 94 L 97 Oximetry Medical Decision Making - Medical Decision Making Well appearing 22 yo female with cc of hematemesis. Labs unremarkable. Pt appears hemodynamically stable. CXR (-). Pt overall appears very comfortable, no signs of distress. Initial abdominal exam revealed left upper quadrant pain, this was very mild. Denies chest pain, SOB or other associated symptoms. She states that she has experienced this LUQ pain since her diagnosis of a hiatal hernia. Upon repeat abdominal exam patient denied tenderness however. Given chronic history of vomiting with known hiatal hernia. No symptoms/signs of esophageal rupture at this time I feel pt has a justin rios tear. Pt denied any episodes of hematemesis since time in ER. Case discussed in detail with Dr. Augustin at this time we feel pt is stable for d/c with GI follow-up for upper endoscopy. Pt agrees with plan, denies questions. Pt requested work note for the next 2 days. Pt given note, in addition pt ws instructed to f/u with her PCP. Pt verbalized understanding of the plan and follow-up including that she has to make her own appointment with the valuation consultant. Pt d/c in stable condition. - Lab Data Result diagrams: 12/21/17 13:08 12/21/17 13:08 Lab Results 12/21/17 12/21/17 12/21/17 Range/Units 13:08 13:08 14:00 WBC 8.5 (3.8-10.6) k/uL RBC 4.54 (3.80-5.40) m/uL Hgb 13.7 (11.4-16.0) gm/dL Hct 41.4 (34.0-46.0) % MCV 91.1 (80.0-100.0) fL MCH 30.1 (25.0-35.0) pg MCHC 33.0 (31.0-37.0) g/dL RDW 13.2 (11.5-15.5) % Plt Count 334 (150-450) k/uL Neutrophils % 63 % Lymphocytes % 27 % Monocytes % 5 % Eosinophils % 3 % Basophils % 1 % Neutrophils # 5.3 (1.3-7.7) k/uL Lymphocytes # 2.3 (1.0-4.8) k/uL Monocytes # 0.4 (0-1.0) k/uL Eosinophils # 0.3 (0-0.7) k/uL Basophils # 0.0 (0-0.2) k/uL Sodium 143 (137-145) mmol/L Potassium 4.9 (3.5-5.1) mmol/L Chloride 106 (98-107) mmol/L Carbon Dioxide 29 (22-30) mmol/L Anion Gap 8 mmol/L BUN 9 (7-17) mg/dL Creatinine 0.59 (0.52-1.04) mg/dL Est GFR (CKD-EPI)AfAm >90 (>60 ml/min/1.73 sqM) Est GFR (CKD-EPI)NonAf >90 (>60 ml/min/1.73 sqM) Glucose 65 L (74-99) mg/dL Calcium 10.2 (8.4-10.2) mg/dL Total Bilirubin 0.5 (0.2-1.3) mg/dL AST 24 (14-36) U/L ALT 25 (9-52) U/L Alkaline Phosphatase 60 (38-126) U/L Total Protein 7.1 (6.3-8.2) g/dL Albumin 4.2 (3.5-5.0) g/dL Amylase 48 (30-110) U/L Lipase 99 (23-300) U/L Urine Color Urine Appearance (Clear) Urine pH (5.0-8.0) Ur Specific [place] (1.001-1.035) Urine Protein (Negative) Urine Glucose (UA) (Negative) Urine Ketones (Negative) Urine Blood (Negative) Urine Nitrite (Negative) Urine Bilirubin (Negative) Urine Urobilinogen (<2.0) mg/dL Ur Leukocyte Esterase (Negative) Urine HCG, Qual Not Detected (Not Detectd) 12/21/17 Range/Units 14:00 WBC (3.8-10.6) k/uL RBC (3.80-5.40) m/uL Hgb (11.4-16.0) gm/dL Hct (34.0-46.0) % MCV (80.0-100.0) fL MCH (25.0-35.0) pg MCHC (31.0-37.0) g/dL RDW (11.5-15.5) % Plt Count (150-450) k/uL Neutrophils % % Lymphocytes % % Monocytes % % Eosinophils % % Basophils % % Neutrophils # (1.3-7.7) k/uL Lymphocytes # (1.0-4.8) k/uL Monocytes # (0-1.0) k/uL Eosinophils # (0-0.7) k/uL Basophils # (0-0.2) k/uL Sodium (137-145) mmol/L Potassium (3.5-5.1) mmol/L Chloride (98-107) mmol/L Carbon Dioxide (22-30) mmol/L Anion Gap mmol/L BUN (7-17) mg/dL Creatinine (0.52-1.04) mg/dL Est GFR (CKD-EPI)AfAm (>60 ml/min/1.73 sqM) Est GFR (CKD-EPI)NonAf (>60 ml/min/1.73 sqM) Glucose (74-99) mg/dL Calcium (8.4-10.2) mg/dL Total Bilirubin (0.2-1.3) mg/dL AST (14-36) U/L ALT (9-52) U/L Alkaline Phosphatase (38-126) U/L Total Protein (6.3-8.2) g/dL Albumin (3.5-5.0) g/dL Amylase (30-110) U/L Lipase (23-300) U/L Urine Color Light Yellow Urine Appearance Clear (Clear) Urine pH 6.5 (5.0-8.0) Ur Specific [place] 1.008 (1.001-1.035) Urine Protein Negative (Negative) Urine Glucose (UA) Negative (Negative) Urine Ketones Negative (Negative) Urine Blood Negative (Negative) Urine Nitrite Negative (Negative) Urine Bilirubin Negative (Negative) Urine Urobilinogen <2.0 (<2.0) mg/dL Ur Leukocyte Esterase Negative (Negative) Urine HCG, Qual (Not Detectd) Disposition Clinical Impression: Justin-Rios tear Disposition: HOME SELF-CARE Condition: Good Instructions: Justin-Rios Syndrome (ED) Additional Instructions: Please use home medications as discussed. Please follow-up with family doctor in the next 2 days, please see gastroenterology in the next 2-3 days. Please return to emergency room if the symptoms increase or worsen or for any other concerns, as discussed including increased vomiting/blood in vomiting, blood in stools/dark stools, abdominal pain, chest pain. Is patient prescribed a controlled substance at d/c from ED?: No Referrals: Aaron Carter MD [Primary Care Provider] - 1-2 days Sharon Rodarte MD [STAFF PHYSICIAN] - 1-2 days Time of Disposition: 14:59
[2017-12-21 13:54] LABS: Basophils % (A) 1 %; Eosinophils # (A) 0.3 k/uL (0-0.7); Eosinophils % (A) 3 %; HCT 41.4 % (34.0-46.0); HGB 13.7 gm/dL (11.4-16.0); Lymphocytes # (A) 2.3 k/uL (1.0-4.8); Lymphocytes % (A) 27 %; MCH 30.1 pg (25.0-35.0); MCV 91.1 fL (80.0-100.0); Mean Platelet Volume 7.1; Monocytes # (A) 0.4 k/uL (0-1.0); Monocytes % (A) 5 %; Neutrophils # (A) 5.3 k/uL (1.3-7.7); Neutrophils % (A) 63 %; Platelet Count 334 k/uL (150-450); RBC 4.54 m/uL (3.80-5.40); RDW 13.2 % (11.5-15.5); WBC 8.5 k/uL (3.8-10.6)
[2017-12-21 14:08] LABS: ALT 25 U/L (9-52); AST 24 U/L (14-36); Albumin 4.2 g/dL (3.5-5.0); Alkaline Phosphatase 60 U/L (38-126); Amylase 48 U/L (30-110); Anion Gap 8 mmol/L; Blood Urea Nitrogen 9 mg/dL (7-17); Calcium 10.2 mg/dL (8.4-10.2); Carbon Dioxide 29 mmol/L (22-30); Chloride 106 mmol/L (98-107); Glucose 65 mg/dL (74-99); Lipase 99 U/L (23-300); Potassium 4.9 mmol/L (3.5-5.1); Sodium 143 mmol/L (137-145); Total Bilirubin 0.5 mg/dL (0.2-1.3); Total Protein 7.1 g/dL (6.3-8.2)
[2017-12-21 14:14] LABS: Appearance,Urine Clear (Clear); Bilirubin,Urine Negative (Negative); Blood,Urine Negative (Negative); Color,Urine Light Yellow; Glucose,Urine (UA) Negative (Negative); Ketones,Urine Negative (Negative); Leukocyte Esterase,Urine Negative (Negative); Nitrite,Urine Negative (Negative); PH, Urine 6.5 (5.0-8.0); Protein,Urine Negative (Negative); Specific Gravity,Urine 1.008 (1.001-1.035); Urobilinogen,Urine <2.0 mg/dL (<2.0)
--- NOTE | 2017-12-21 14:19 | XR ---
EXAMINATION TYPE: XR chest 2V DATE OF EXAM: 12/21/2017 COMPARISON: 10/01/16 HISTORY: Chest pain TECHNIQUE: Frontal and lateral views of the chest are obtained. FINDINGS: There is no focal air space opacity. No evidence for pneumothorax. No pleural effusion. The cardiac silhouette size is within normal limits. The osseous structures are grossly intact. IMPRESSION: 1. No acute cardiopulmonary process.
[2017-12-21 14:26] VITALS: BP 118/61; RESP 16
== END 2017-12-21 15:12 | disposition home or self-care (01) ==
LOC: EC 11:11
DX: K22.6 Gastro-esophageal laceration-hemorrhage syndrome (principal); J45.909 Unspecified asthma, uncomplicated; F41.9 Anxiety disorder, unspecified; F32.9 Major depressive disorder, single episode, unspecified; K21.0 Gastro-esophageal reflux disease with esophagitis; Z32.02 Encounter for pregnancy test, result negative; Z79.899 Other long term (current) drug therapy; Z91.040 Latex allergy status; Z87.891 Personal history of nicotine dependence
CPT/HCPCS: 36415; 71046; 80053; 81003; 81025; 82150; 83690; 85025; 96360; 99284

== ENCOUNTER 2018-02-24 18:53 | Emergency (ER) | payer BC ==
[2018-02-24 19:03] VITALS: RESP 18
[2018-02-24] MEDS ORDERED: ONDANSETRON 4 MG/2 ML VIAL IVP STA (20:17)
[2018-02-24] MEDS ORDERED: FAMOTIDINE 20 MG/2 ML VIAL IV STA (20:17)
[2018-02-24] MEDS ORDERED: SODIUM CHLORIDE 0.9% 1,000 ML IV STA (20:17)
--- NOTE | 2018-02-24 20:55 | ED ---
Abdominal Pain HPI - General Chief Complaint: Abdominal Pain Stated Complaint: Abd pain Time Seen by Provider: 02/24/18 19:50 Source: patient Mode of arrival: ambulatory Limitations: no limitations - History of Present Illness Initial Comments: 22-year-old female patient presents the emergency department today for evaluation of midepigastric abdominal pain and vomiting. Patient states she had one episode of vomiting yesterday morning and again had an episode of vomiting today. States that after the vomiting episode she did have increased intermittent epigastric abdomen. States that she does have history of herniated esophagus and is concerned that she may have causes to worsen. She states that she has felt feverish and has been chilled. She denies any constipation or diarrhea with this. She denies any chance of . Denies any recent travel or sick contacts. Denies any use of new medications. Patient denies any recent rash, shortness breath, chest pain, back pain, numbness, tingling, dizziness, weakness, hematuria, dysuria, urinary urgency, urinary frequency, headache, visual changes, or any other complaints. - Related Data Home Medications Medication Instructions Recorded Confirmed Albuterol Inhaler [Ventolin Hfa 1 - 2 puff INHALATION RT-Q6H PRN 11/12/15 Inhaler] cloNIDine HCL [Catapres] 0.2 mg PO HS 11/12/15 10/01/16 Ipratropium-Albuterol Nebulize 3 ml INHALATION RT-Q4H PRN 10/01/16 10/01/16 [Duoneb 0.5 mg-3 mg/3 ml Soln] Previous Rx's Medication Instructions Recorded predniSONE 0 mg PO DIRECTED #18 tab 10/05/16 Dicyclomine [Bentyl] 20 mg PO QID #10 tablet 02/24/18 Ondansetron [Zofran ODT] 4 mg PO Q8HR PRN #10 tab 02/24/18 Allergies Allergy/AdvReac Type Severity Reaction Status Date / Time latex Allergy Rash/Hives Verified 02/24/18 19:03 Review of Systems ROS Statement: Those systems with pertinent positive or pertinent negative responses have been documented in the HPI. ROS Other: All systems not noted in ROS Statement are negative. Past Medical History Past Medical History: Asthma, COPD, GERD/Reflux, Pneumonia Additional Past Medical History / Comment(s): herniated esoph, MIGRAINES, colitis History of Any Multi-Drug Resistant Organisms: None Reported Past Surgical History: No Surgical Hx Reported Past Anesthesia/Blood Transfusion Reactions: No Reported Reaction Additional Past Anesthesia/Blood Transfusion Reaction / Comment(s): NEVER HAD ANY SX Past Psychological History: Anxiety, Depression Smoking Status: Former smoker Past Alcohol Use History: Occasional Past Drug Use History: Marijuana - Past Family History Father Family Medical History: No Reported History Additional Family Medical History / Comment(s): SEASONAL DEPRESSION Mother Family Medical History: COPD Additional Family Medical History / Comment(s): LEAKY HEART VALVE. ON MOMS SIDE OF FAMILY SKIN CANCER Sister(s) Family Medical History: No Reported History General Exam Limitations: no limitations General appearance: alert, in no apparent distress, other (This is a well- developed, well-nourished adult female patient in no acute distress. Vital signs upon presentation are temperature 98.3F, pulse 87, respirations 18, blood pressure 107/68, pulse ox 98% on room air.) Eye exam: Present: normal appearance, PERRL, EOMI. Absent: scleral icterus, conjunctival injection, periorbital swelling ENT exam: Present: normal exam, normal oropharynx, mucous membranes moist Respiratory exam: Present: normal lung sounds bilaterally. Absent: respiratory distress, wheezes, rales, rhonchi, stridor Cardiovascular Exam: Present: regular rate, normal rhythm, normal heart sounds. Absent: systolic murmur, diastolic murmur, rubs, gallop, clicks GI/Abdominal exam: Present: soft, tenderness (Right upper quadrant tenderness), normal bowel sounds. Absent: distended, guarding, rebound, rigid Neurological exam: Present: alert, oriented X3, CN II-XII intact Psychiatric exam: Present: normal affect, normal mood Skin exam: Present: warm, dry, intact, normal color. Absent: rash Course Vital Signs 02/24/18 02/24/18 19:01 23:15 Temperature 98.3 F 98.1 F Pulse Rate 87 78 Respiratory 18 18 Rate Blood Pressure 107/68 124/69 O2 Sat by Pulse 98 98 Oximetry Medical Decision Making - Medical Decision Making 22-year-old female patient presented to the emergency department today for evaluation of upper abdominal pain and vomiting. Physical examination did reveal some mild midepigastric tenderness. Labs reviewed and were all within normal ranges. Patient was given nausea medication and Bentyl here in the emergency department. She is slightly improved upon discharge. She'll be given Zofran to take home. She is instructed father primary care physician for recheck in 1-2 days. Return parameters discussed in detail. She verbalizes understanding and agrees with this plan. - Lab Data Result diagrams: 02/24/18 20:37 02/24/18 20:37 Lab Results 02/24/18 02/24/18 02/24/18 Range/Units 20:37 20:37 20:37 WBC 9.8 (3.8-10.6) k/uL RBC 4.74 (3.80-5.40) m/uL Hgb 14.3 (11.4-16.0) gm/dL Hct 42.9 (34.0-46.0) % MCV 90.4 (80.0-100.0) fL MCH 30.2 (25.0-35.0) pg MCHC 33.4 (31.0-37.0) g/dL RDW 13.3 (11.5-15.5) % Plt Count 282 (150-450) k/uL Neutrophils % 60 % Lymphocytes % 30 % Monocytes % 4 % Eosinophils % 4 % Basophils % 0 % Neutrophils # 5.9 (1.3-7.7) k/uL Lymphocytes # 2.9 (1.0-4.8) k/uL Monocytes # 0.4 (0-1.0) k/uL Eosinophils # 0.3 (0-0.7) k/uL Basophils # 0.0 (0-0.2) k/uL Sodium 140 (137-145) mmol/L Potassium 4.6 (3.5-5.1) mmol/L Chloride 106 (98-107) mmol/L Carbon Dioxide 26 (22-30) mmol/L Anion Gap 8 mmol/L BUN 9 (7-17) mg/dL Creatinine 0.56 (0.52-1.04) mg/dL Est GFR (CKD-EPI)AfAm >90 (>60 ml/min/1.73 sqM) Est GFR (CKD-EPI)NonAf >90 (>60 ml/min/1.73 sqM) Glucose 87 (74-99) mg/dL Calcium 9.7 (8.4-10.2) mg/dL Total Bilirubin 0.7 (0.2-1.3) mg/dL AST 32 (14-36) U/L ALT 34 (9-52) U/L Alkaline Phosphatase 65 (38-126) U/L Total Protein 7.5 (6.3-8.2) g/dL Albumin 4.4 (3.5-5.0) g/dL Amylase 41 (30-110) U/L Lipase 102 (23-300) U/L Urine Color Urine Appearance (Clear) Urine pH (5.0-8.0) Ur Specific [place] (1.001-1.035) Urine Protein (Negative) Urine Glucose (UA) (Negative) Urine Ketones (Negative) Urine Blood (Negative) Urine Nitrite (Negative) Urine Bilirubin (Negative) Urine Urobilinogen (<2.0) mg/dL Ur Leukocyte Esterase (Negative) Urine HCG, Qual Not Detected (Not Detectd) 02/24/18 Range/Units 20:37 WBC (3.8-10.6) k/uL RBC (3.80-5.40) m/uL Hgb (11.4-16.0) gm/dL Hct (34.0-46.0) % MCV (80.0-100.0) fL MCH (25.0-35.0) pg MCHC (31.0-37.0) g/dL RDW (11.5-15.5) % Plt Count (150-450) k/uL Neutrophils % % Lymphocytes % % Monocytes % % Eosinophils % % Basophils % % Neutrophils # (1.3-7.7) k/uL Lymphocytes # (1.0-4.8) k/uL Monocytes # (0-1.0) k/uL Eosinophils # (0-0.7) k/uL Basophils # (0-0.2) k/uL Sodium (137-145) mmol/L Potassium (3.5-5.1) mmol/L Chloride (98-107) mmol/L Carbon Dioxide (22-30) mmol/L Anion Gap mmol/L BUN (7-17) mg/dL Creatinine (0.52-1.04) mg/dL Est GFR (CKD-EPI)AfAm (>60 ml/min/1.73 sqM) Est GFR (CKD-EPI)NonAf (>60 ml/min/1.73 sqM) Glucose (74-99) mg/dL Calcium (8.4-10.2) mg/dL Total Bilirubin (0.2-1.3) mg/dL AST (14-36) U/L ALT (9-52) U/L Alkaline Phosphatase (38-126) U/L Total Protein (6.3-8.2) g/dL Albumin (3.5-5.0) g/dL Amylase (30-110) U/L Lipase (23-300) U/L Urine Color Light Yellow Urine Appearance Clear (Clear) Urine pH 7.5 (5.0-8.0) Ur Specific [place] 1.014 (1.001-1.035) Urine Protein Negative (Negative) Urine Glucose (UA) Negative (Negative) Urine Ketones Negative (Negative) Urine Blood Negative (Negative) Urine Nitrite Negative (Negative) Urine Bilirubin Negative (Negative) Urine Urobilinogen <2.0 (<2.0) mg/dL Ur Leukocyte Esterase Negative (Negative) Urine HCG, Qual (Not Detectd) - Radiology Data Radiology results: report reviewed, image reviewed Single upright image of the abdomen was obtained. Scattered gas is seen in nondistended small bowel loops. Gas and fecal material seen in nondistended colon. There is no visceromegaly, pneumoperitoneum, or abnormal calcification patient. There is levoscoliosis of the thoracolumbar junction. The lung bases are clear and the osseous structures are intact. Impression by Dr. Davila shows nonobstructive bowel gas pattern. No pneumoperitoneum. Disposition Clinical Impression: Abdominal pain, Vomiting Disposition: HOME SELF-CARE Condition: Good Instructions: Acute Nausea and Vomiting (ED), Abdominal Pain (ED) Additional Instructions: Start with a clear liquid diet and advance as tolerated. Take medications as directed. Follow-up through primary care physician for recheck in 1-2 days. Return immediately for any new, worsening, or concerning symptoms. Prescriptions: Dicyclomine [Bentyl] 20 mg PO QID #10 tablet Ondansetron [Zofran ODT] 4 mg PO Q8HR PRN #10 tab PRN Reason: Nausea Is patient prescribed a controlled substance at d/c from ED?: No Referrals: Aaron Carter MD [Primary Care Provider] - 1-2 days Time of Disposition: 23:19
[2018-02-24 21:01] LABS: Basophils % (A) 0 %; Eosinophils # (A) 0.3 k/uL (0-0.7); Eosinophils % (A) 4 %; HCT 42.9 % (34.0-46.0); HGB 14.3 gm/dL (11.4-16.0); Lymphocytes # (A) 2.9 k/uL (1.0-4.8); Lymphocytes % (A) 30 %; MCH 30.2 pg (25.0-35.0); MCHC 33.4 g/dL (31.0-37.0); MCV 90.4 fL (80.0-100.0); Monocytes # (A) 0.4 k/uL (0-1.0); Monocytes % (A) 4 %; Neutrophils # (A) 5.9 k/uL (1.3-7.7); Neutrophils % (A) 60 %; Platelet Count 282 k/uL (150-450); RBC 4.74 m/uL (3.80-5.40); RDW 13.3 % (11.5-15.5); WBC 9.8 k/uL (3.8-10.6)
[2018-02-24 21:04] LABS: Appearance,Urine Clear (Clear); Bilirubin,Urine Negative (Negative); Blood,Urine Negative (Negative); Color,Urine Light Yellow; Glucose,Urine (UA) Negative (Negative); Ketones,Urine Negative (Negative); Leukocyte Esterase,Urine Negative (Negative); Nitrite,Urine Negative (Negative); PH, Urine 7.5 (5.0-8.0); Protein,Urine Negative (Negative); Specific Gravity,Urine 1.014 (1.001-1.035); Urobilinogen,Urine <2.0 mg/dL (<2.0)
[2018-02-24 21:08] LABS: ALT 34 U/L (9-52); AST 32 U/L (14-36); Albumin 4.4 g/dL (3.5-5.0); Alkaline Phosphatase 65 U/L (38-126); Amylase 41 U/L (30-110); Anion Gap 8 mmol/L; Blood Urea Nitrogen 9 mg/dL (7-17); Calcium 9.7 mg/dL (8.4-10.2); Carbon Dioxide 26 mmol/L (22-30); Chloride 106 mmol/L (98-107); Glucose 87 mg/dL (74-99); Lipase 102 U/L (23-300); Sodium 140 mmol/L (137-145); Total Bilirubin 0.7 mg/dL (0.2-1.3); Total Protein 7.5 g/dL (6.3-8.2)
--- NOTE | 2018-02-24 21:27 | XR ---
EXAMINATION TYPE: XR KUB DATE OF EXAM: 02/24/2018 9:18 PM CLINICAL HISTORY: Abdominal pain and vomiting. TECHNIQUE: Single upright image of the abdomen is obtained. COMPARISON: 05/23/2015. FINDINGS: Scattered gas is seen in non-distended small bowel loops. Gas and fecal material is seen in non-distended colon. There is no visceromegaly, pneumoperitoneum, or abnormal calcification apprecia luisana. There is a levoscoliosis of the thoracolumbar junction. The lung bases are clear and the osseous structures are intact. IMPRESSION: Nonobstructive bowel gas pattern. No pneumoperitoneum.
[2018-02-24 22:14] LABS: Potassium 4.6 mmol/L (3.5-5.1)
[2018-02-24 23:16] VITALS: BP 124/69; PULSE 78; TEMP 98.1
[2018-02-24] MEDS ORDERED: ONDANSETRON 4 MG ODT STARTER PACK 2 TAB BTL PO STA (23:20)
[2018-02-24] MEDS ORDERED: DICYCLOMINE 20 MG TAB PO STA (23:20)
== END 2018-02-24 23:31 | disposition home or self-care (01) ==
LOC: EC 18:53
DX: R10.13 Epigastric pain (principal); R11.10 Vomiting, unspecified; R50.9 Fever, unspecified; J44.9 Chronic obstructive pulmonary disease, unspecified; Z87.19 Personal history of other diseases of the digestive system; Z87.891 Personal history of nicotine dependence; Z79.899 Other long term (current) drug therapy; Z91.040 Latex allergy status
CPT/HCPCS: 36415; 80053; 82150; 83690; 85025; 81003; 81025; 74018; 99284; 96374; 96375; 96361 ×3; J2405; S0119

== ENCOUNTER 2018-08-23 00:01 | Emergency (ER) | payer BC ==
[2018-08-23 00:15] VITALS: RESP 18
[2018-08-23] MEDS ORDERED: ONDANSETRON 4 MG/2 ML VIAL IVP STA (00:27)
[2018-08-23 00:51] LABS: Basophils % (A) 0 %; Eosinophils # (A) 0.4 k/uL (0-0.7); Eosinophils % (A) 4 %; HCT 39.6 % (34.0-46.0); HGB 13.4 gm/dL (11.4-16.0); Lymphocytes # (A) 3.6 k/uL (1.0-4.8); Lymphocytes % (A) 35 %; MCH 29.4 pg (25.0-35.0); MCHC 33.7 g/dL (31.0-37.0); MCV 87.1 fL (80.0-100.0); Mean Platelet Volume 6.4; Monocytes # (A) 0.6 k/uL (0-1.0); Monocytes % (A) 6 %; Neutrophils # (A) 5.4 k/uL (1.3-7.7); Neutrophils % (A) 53 %; Platelet Count 359 k/uL (150-450); RBC 4.55 m/uL (3.80-5.40); RDW 13.3 % (11.5-15.5); WBC 10.1 k/uL (3.8-10.6)
[2018-08-23 00:54] LABS: Appearance,Urine Cloudy (Clear); Bacteria,Urine Moderate /hpf; Bilirubin,Urine Negative (Negative); Blood,Urine Negative (Negative); Color,Urine Yellow; Glucose,Urine (UA) Negative (Negative); Ketones,Urine Negative (Negative); Leukocyte Esterase,Urine Negative (Negative); Mucus,Urine Rare /hpf; Nitrite,Urine Negative (Negative); PH, Urine 5.5 (5.0-8.0); Protein,Urine Negative (Negative); RBC,Urine 3 /hpf (0-5); Specific Gravity,Urine 1.016 (1.001-1.035); Squamous Epithelial Cell,Urine 6 /hpf (0-4); Urobilinogen,Urine <2.0 mg/dL (<2.0); WBC,Urine 2 /hpf (0-5)
[2018-08-23 00:57] LABS: Albumin 4.6 g/dL (3.5-5.0); Amylase 53 U/L (30-110); Anion Gap 8 mmol/L; Calcium 9.4 mg/dL (8.4-10.2); Carbon Dioxide 26 mmol/L (22-30); Chloride 105 mmol/L (98-107); Glucose 66 mg/dL (74-99); Lipase 141 U/L (23-300); Sodium 139 mmol/L (137-145); Total Bilirubin 0.4 mg/dL (0.2-1.3); Total Protein 7.5 g/dL (6.3-8.2)
[2018-08-23 01:08] LABS: ALT 20 U/L (9-52); AST 27 U/L (14-36); Alkaline Phosphatase 68 U/L (38-126); Blood Urea Nitrogen 8 mg/dL (7-17); Potassium 4.2 mmol/L (3.5-5.1)
--- NOTE | 2018-08-23 01:23 | ED ---
Abdominal Pain HPI - General Chief Complaint: Abdominal Pain Stated Complaint: Abd pain Time Seen by Provider: 08/23/18 00:25 Source: patient Mode of arrival: ambulatory Limitations: no limitations - History of Present Illness MD Complaint: abdominal pain Onset/Timin -: hour(s) Location: [facility] Radiation: none Severity: moderate Quality: sharp Consistency: constant Improves With: nothing Worsens With: nothing Associated Symptoms: nausea - Related Data Home Medications Medication Instructions Recorded Confirmed Albuterol Inhaler [Ventolin Hfa 1 - 2 puff INHALATION RT-Q6H PRN 11/12/15 10/01/16 Inhaler] cloNIDine HCL [Catapres] 0.2 mg PO HS 11/12/15 10/01/16 Ipratropium-Albuterol Nebulize 3 ml INHALATION RT-Q4H PRN 10/01/16 10/01/16 [Duoneb 0.5 mg-3 mg/3 ml Soln] Previous Rx's Medication Instructions Recorded predniSONE 0 mg PO DIRECTED #18 tab 10/05/16 Dicyclomine [Bentyl] 20 mg PO QID #10 tablet 02/24/18 Ondansetron [Zofran ODT] 4 mg PO Q8HR PRN #10 tab 02/24/18 Famotidine [Pepcid] 20 mg PO BID #14 tablet 08/23/18 Allergies Allergy/AdvReac Type Severity Reaction Status Date / Time latex Allergy Rash/Hives Verified 08/23/18 00:15 Review of Systems ROS Statement: Those systems with pertinent positive or pertinent negative responses have been documented in the HPI. ROS Other: All systems not noted in ROS Statement are negative. Constitutional: Denies: fever, chills Respiratory: Denies: cough, dyspnea Cardiovascular: Denies: chest pain, palpitations Gastrointestinal: Reports: abdominal pain, nausea. Denies: vomiting, diarrhea, constipation Genitourinary: Denies: dysuria, hematuria Musculoskeletal: Denies: back pain Skin: Denies: rash Neurological: Denies: headache, weakness, numbness, paresthesias Past Medical History Past Medical History: Asthma, COPD, GERD/Reflux, Pneumonia Additional Past Medical History / Comment(s): herniated esoph, MIGRAINES, colitis History of Any Multi-Drug Resistant Organisms: None Reported Past Surgical History: No Surgical Hx Reported Past Anesthesia/Blood Transfusion Reactions: No Reported Reaction Additional Past Anesthesia/Blood Transfusion Reaction / Comment(s): NEVER HAD ANY SX Past Psychological History: Anxiety, Depression Smoking Status: Former smoker Past Alcohol Use History: Occasional Past Drug Use History: Marijuana - Past Family History Father Family Medical History: No Reported History Additional Family Medical History / Comment(s): SEASONAL DEPRESSION Mother Family Medical History: COPD Additional Family Medical History / Comment(s): LEAKY HEART VALVE. ON MOMS SIDE OF FAMILY SKIN CANCER Sister(s) Family Medical History: No Reported History General Exam Limitations: no limitations General appearance: alert, in no apparent distress Head exam: Present: atraumatic, normocephalic Eye exam: Present: normal appearance. Absent: scleral icterus, conjunctival injection ENT exam: Present: normal oropharynx Neck exam: Present: normal inspection, full ROM Respiratory exam: Present: normal lung sounds bilaterally. Absent: respiratory distress, wheezes, rales, rhonchi, stridor Cardiovascular Exam: Present: regular rate, normal rhythm, normal heart sounds. Absent: systolic murmur, diastolic murmur, rubs, gallop GI/Abdominal exam: Present: soft, normal bowel sounds. Absent: distended, tenderness, guarding, rebound, rigid, mass, pulsatile mass, hernia Extremities exam: Present: normal inspection, normal capillary refill. Absent: pedal edema, calf tenderness Back exam: Present: normal inspection. Absent: CVA tenderness (R), CVA tenderness (L) Neurological exam: Present: alert Skin exam: Present: warm, dry, intact, normal color. Absent: rash Course Vital Signs 08/23/18 00:13 Temperature 98.2 F Pulse Rate 84 Respiratory 18 Rate Blood Pressure 140/78 O2 Sat by Pulse 97 Oximetry Medical Decision Making - Lab Data Result diagrams: 08/23/18 00:34 08/23/18 00:34 Lab Results 08/23/18 08/23/18 08/23/18 Range/Units 00:34 00:34 00:34 WBC 10.1 (3.8-10.6) k/uL RBC 4.55 (3.80-5.40) m/uL Hgb 13.4 (11.4-16.0) gm/dL Hct 39.6 (34.0-46.0) % MCV 87.1 (80.0-100.0) fL MCH 29.4 (25.0-35.0) pg MCHC 33.7 (31.0-37.0) g/dL RDW 13.3 (11.5-15.5) % Plt Count 359 (150-450) k/uL Neutrophils % 53 % Lymphocytes % 35 % Monocytes % 6 % Eosinophils % 4 % Basophils % 0 % Neutrophils # 5.4 (1.3-7.7) k/uL Lymphocytes # 3.6 (1.0-4.8) k/uL Monocytes # 0.6 (0-1.0) k/uL Eosinophils # 0.4 (0-0.7) k/uL Basophils # 0.0 (0-0.2) k/uL Sodium 139 (137-145) mmol/L Potassium 4.2 (3.5-5.1) mmol/L Chloride 105 (98-107) mmol/L Carbon Dioxide 26 (22-30) mmol/L Anion Gap 8 mmol/L BUN 8 (7-17) mg/dL Creatinine 0.57 (0.52-1.04) mg/dL Est GFR (CKD-EPI)AfAm >90 (>60 ml/min/1.73 sqM) Est GFR (CKD-EPI)NonAf >90 (>60 ml/min/1.73 sqM) Glucose 66 L (74-99) mg/dL Calcium 9.4 (8.4-10.2) mg/dL Total Bilirubin 0.4 (0.2-1.3) mg/dL AST 27 (14-36) U/L ALT 20 (9-52) U/L Alkaline Phosphatase 68 (38-126) U/L Total Protein 7.5 (6.3-8.2) g/dL Albumin 4.6 (3.5-5.0) g/dL Amylase 53 (30-110) U/L Lipase 141 (23-300) U/L Urine Color Urine Appearance (Clear) Urine pH (5.0-8.0) Ur Specific [place] (1.001-1.035) Urine Protein (Negative) Urine Glucose (UA) (Negative) Urine Ketones (Negative) Urine Blood (Negative) Urine Nitrite (Negative) Urine Bilirubin (Negative) Urine Urobilinogen (<2.0) mg/dL Ur Leukocyte Esterase (Negative) Urine RBC (0-5) /hpf Urine WBC (0-5) /hpf Ur Squamous Epith Cells (0-4) /hpf Urine Bacteria (None) /hpf Urine Mucus (None) /hpf Urine HCG, Qual Not Detected (Not Detectd) 08/23/18 Range/Units 00:34 WBC (3.8-10.6) k/uL RBC (3.80-5.40) m/uL Hgb (11.4-16.0) gm/dL Hct (34.0-46.0) % MCV (80.0-100.0) fL MCH (25.0-35.0) pg MCHC (31.0-37.0) g/dL RDW (11.5-15.5) % Plt Count (150-450) k/uL Neutrophils % % Lymphocytes % % Monocytes % % Eosinophils % % Basophils % % Neutrophils # (1.3-7.7) k/uL Lymphocytes # (1.0-4.8) k/uL Monocytes # (0-1.0) k/uL Eosinophils # (0-0.7) k/uL Basophils # (0-0.2) k/uL Sodium (137-145) mmol/L Potassium (3.5-5.1) mmol/L Chloride (98-107) mmol/L Carbon Dioxide (22-30) mmol/L Anion Gap mmol/L BUN (7-17) mg/dL Creatinine (0.52-1.04) mg/dL Est GFR (CKD-EPI)AfAm (>60 ml/min/1.73 sqM) Est GFR (CKD-EPI)NonAf (>60 ml/min/1.73 sqM) Glucose (74-99) mg/dL Calcium (8.4-10.2) mg/dL Total Bilirubin (0.2-1.3) mg/dL AST (14-36) U/L ALT (9-52) U/L Alkaline Phosphatase (38-126) U/L Total Protein (6.3-8.2) g/dL Albumin (3.5-5.0) g/dL Amylase (30-110) U/L Lipase (23-300) U/L Urine Color Yellow Urine Appearance Cloudy H (Clear) Urine pH 5.5 (5.0-8.0) Ur Specific [place] 1.016 (1.001-1.035) Urine Protein Negative (Negative) Urine Glucose (UA) Negative (Negative) Urine Ketones Negative (Negative) Urine Blood Negative (Negative) Urine Nitrite Negative (Negative) Urine Bilirubin Negative (Negative) Urine Urobilinogen <2.0 (<2.0) mg/dL Ur Leukocyte Esterase Negative (Negative) Urine RBC 3 (0-5) /hpf Urine WBC 2 (0-5) /hpf Ur Squamous Epith Cells 6 H (0-4) /hpf Urine Bacteria Moderate H (None) /hpf Urine Mucus Rare H (None) /hpf Urine HCG, Qual (Not Detectd) Disposition Clinical Impression: Abdominal pain Disposition: HOME SELF-CARE Condition: Good Instructions (If sedation given, give patient instructions): Abdominal Pain (ED) Prescriptions: Famotidine [Pepcid] 20 mg PO BID #14 tablet Is patient prescribed a controlled substance at d/c from ED?: No Referrals: Aaron Carter MD [Primary Care Provider] - 1-2 days Sharon Rodarte MD [STAFF PHYSICIAN] - 1-2 days Fawad Cooper MD [REFERRING] - 1-2 days
[2018-08-23] MEDS ORDERED: MAG HYDROX/AL HYDROX/SIMETH 30 ML, HYOSCYAMINE ELIXIR 10 ML, CIMETIDINE HCL 300 MG, LID... PO STA ×4 (01:24)
[2018-08-23 02:29] VITALS: BP 138/72; PULSE 80; TEMP 98
== END 2018-08-23 02:29 | disposition home or self-care (01) ==
LOC: EC 00:01
DX: R10.12 Left upper quadrant pain (principal); R11.0 Nausea; J44.9 Chronic obstructive pulmonary disease, unspecified; Z87.891 Personal history of nicotine dependence; Z79.899 Other long term (current) drug therapy; Z91.040 Latex allergy status
CPT/HCPCS: 36415; 80053; 81001; 81025; 82150; 83690; 85025; 96374; 99284

== ENCOUNTER 2019-03-20 09:43 | Emergency (ER) | payer BC ==
[2019-03-20 09:47] VITALS: TEMP 98.1
[2019-03-20] MEDS ORDERED: ONDANSETRON 4 MG/2 ML VIAL IVP STA (09:59)
[2019-03-20] MEDS ORDERED: PANTOPRAZOLE 40 MG/10 ML VIAL IVP STA (09:59)
[2019-03-20] MEDS ORDERED: SODIUM CHLORIDE 0.9% 1,000 ML IV STA (09:59)
--- NOTE | 2019-03-20 10:03 | ED ---
GI Bleed HPI - General Chief complaint: GI Bleed Stated complaint: abdominal pain/blood in stool Time Seen by Provider: 03/20/19 09:48 Source: patient, RN notes reviewed, old records reviewed Mode of arrival: ambulatory Limitations: no limitations - History of Present Illness Initial comments: Plan 3-year-old female presents today for concern for bloody stool this morning. eyes any black or tarry stools. Patient had a history of colitis and GERD in the past. Patient states that she has some minor cramping abdominal pain at this time. Denies any fevers or chills. She denies any vomiting.he states that she has history of irregular menstrual cycles. Her last period was in May. She denies any chance of at this time.4 she's been evaluated by gynecology wouldn't have answers for this. Patient denies any recent fever, chills, shortness of breath, chest pain, back pain, nausea vomiting, numbness or tingling, dysuria or hematuria, constipation or diarrhea, headaches or visual changes, or any other current symptoms - Related Data Home Medications Medication Instructions Recorded Confirmed Albuterol Inhaler [Ventolin Hfa 1 - 2 puff INHALATION RT-Q6H PRN 11/12/15 03/20/19 Inhaler] cloNIDine HCL [Catapres] 0.05 mg PO HS 11/12/15 03/20/19 Omeprazole 40 mg PO HS 03/20/19 03/20/19 Sertraline [Zoloft] 100 mg PO HS 03/20/19 03/20/19 Previous Rx's Medication Instructions Recorded Amoxicillin/Potassium Clav 1 tab PO BID 3 Days #6 tab 03/20/19 [Augmentin 875-125 Tablet] Allergies Allergy/AdvReac Type Severity Reaction Status Date / Time latex Allergy Rash/Hives Verified 03/20/19 10:31 Review of Systems ROS Statement: Those systems with pertinent positive or pertinent negative responses have been documented in the HPI. ROS Other: All systems not noted in ROS Statement are negative. Past Medical History Past Medical History: Asthma, COPD, GERD/Reflux, Pneumonia Additional Past Medical History / Comment(s): herniated esoph, MIGRAINES, colitis History of Any Multi-Drug Resistant Organisms: None Reported Past Surgical History: No Surgical Hx Reported Past Anesthesia/Blood Transfusion Reactions: No Reported Reaction Additional Past Anesthesia/Blood Transfusion Reaction / Comment(s): NEVER HAD ANY SX Past Psychological History: Anxiety, Depression Smoking Status: Current every day smoker Past Alcohol Use History: Occasional Past Drug Use History: Marijuana - Past Family History Father Family Medical History: No Reported History Additional Family Medical History / Comment(s): SEASONAL DEPRESSION Mother Family Medical History: COPD Additional Family Medical History / Comment(s): LEAKY HEART VALVE. ON MOMS SIDE OF FAMILY SKIN CANCER Sister(s) Family Medical History: No Reported History General Exam - General Exam Comments Initial Comments: 23-year-old female. Alert and oriented. No distress. Limitations: no limitations General appearance: alert, in no apparent distress Head exam: Present: atraumatic, normocephalic, normal inspection ENT exam: Present: normal exam, mucous membranes moist Neck exam: Present: normal inspection. Absent: tenderness, meningismus, lymphadenopathy Respiratory exam: Present: normal lung sounds bilaterally. Absent: respiratory distress, wheezes, rales, rhonchi, stridor Cardiovascular Exam: Present: regular rate, normal rhythm, normal heart sounds. Absent: systolic murmur, diastolic murmur, rubs, gallop, clicks GI/Abdominal exam: Present: soft Back exam: Present: normal inspection Neurological exam: Present: alert, oriented X3, CN II-XII intact Psychiatric exam: Present: normal affect, normal mood Skin exam: Present: warm, dry, intact, normal color. Absent: rash Course Vital Signs 03/20/19 03/20/19 03/20/19 09:45 09:47 10:24 Temperature 98.1 F Pulse Rate 70 65 Respiratory 20 20 Rate Blood Pressure 138/84 O2 Sat by Pulse 99 96 Oximetry 03/20/19 03/20/19 03/20/19 10:30 10:40 10:47 Temperature Pulse Rate 65 62 Respiratory 18 Rate Blood Pressure 109/62 111/72 O2 Sat by Pulse 98 96 Oximetry 03/20/19 03/20/19 03/20/19 10:50 11:00 11:10 Temperature Pulse Rate 65 63 Respiratory Rate Blood Pressure 111/72 107/68 107/68 O2 Sat by Pulse 97 98 Oximetry 03/20/19 03/20/19 11:20 12:00 Temperature Pulse Rate 67 Respiratory 19 Rate Blood Pressure 107/68 103/60 O2 Sat by Pulse 97 99 Oximetry Medical Decision Making - Medical Decision Making 23-year-old female presented today for evaluation, for concerns for a bloody stool episodes of abdominal pain. She reports that history of colitis the past. This time Patient does have a negative occult. Patient's CBC and BMP her [place]. Urinalysis negative for infection. She is no significant tenderness on exam. I discussed any further imaging at this time with just one episode of stool likely infectious colitis. Discussed treatment for 3 days of Augmentin and Patient can follow-up with her primary care doctor. RETURN PARAMETERS WERE DISCUSSED. - Lab Data Result diagrams: 03/20/19 10:09 03/20/19 10:09 Lab Results 03/20/19 03/20/19 03/20/19 Range/Units 10:09 10:09 10:09 WBC 8.3 (3.8-10.6) k/uL RBC 4.89 (3.80-5.40) m/uL Hgb 14.6 (11.4-16.0) gm/dL Hct 43.5 (34.0-46.0) % MCV 88.9 (80.0-100.0) fL MCH 29.8 (25.0-35.0) pg MCHC 33.5 (31.0-37.0) g/dL RDW 13.2 (11.5-15.5) % Plt Count 356 (150-450) k/uL Neutrophils % 64 % Lymphocytes % 24 % Monocytes % 4 % Eosinophils % 5 % Basophils % 1 % Neutrophils # 5.4 (1.3-7.7) k/uL Lymphocytes # 2.0 (1.0-4.8) k/uL Monocytes # 0.4 (0-1.0) k/uL Eosinophils # 0.4 (0-0.7) k/uL Basophils # 0.1 (0-0.2) k/uL PT 9.5 (9.0-12.0) sec INR 0.9 (<1.2) APTT 25.6 (22.0-30.0) sec Sodium 141 (137-145) mmol/L Potassium 4.4 (3.5-5.1) mmol/L Chloride 106 (98-107) mmol/L Carbon Dioxide 27 (22-30) mmol/L Anion Gap 8 mmol/L BUN 11 (7-17) mg/dL Creatinine 0.66 (0.52-1.04) mg/dL Est GFR (CKD-EPI)AfAm >90 (>60 ml/min/1.73 sqM) Est GFR (CKD-EPI)NonAf >90 (>60 ml/min/1.73 sqM) Glucose 94 (74-99) mg/dL Calcium 9.4 (8.4-10.2) mg/dL Total Bilirubin 0.6 (0.2-1.3) mg/dL AST 22 (14-36) U/L ALT 17 (4-34) U/L Alkaline Phosphatase 75 (38-126) U/L Total Protein 7.3 (6.3-8.2) g/dL Albumin 4.2 (3.5-5.0) g/dL Lipase 124 (23-300) U/L Urine Color Urine Appearance (Clear) Urine pH (5.0-8.0) Ur Specific [place] (1.001-1.035) Urine Protein (Negative) Urine Glucose (UA) (Negative) Urine Ketones (Negative) Urine Blood (Negative) Urine Nitrite (Negative) Urine Bilirubin (Negative) Urine Urobilinogen (<2.0) mg/dL Ur Leukocyte Esterase (Negative) Urine RBC (0-5) /hpf Urine WBC (0-5) /hpf Ur Squamous Epith Cells (0-4) /hpf Urine Bacteria (None) /hpf Urine Mucus (None) /hpf Urine HCG, Qual (Not Detectd) Stool Occult Blood (Negative) 03/20/19 03/20/19 03/20/19 Range/Units 10:50 10:50 10:50 WBC (3.8-10.6) k/uL RBC (3.80-5.40) m/uL Hgb (11.4-16.0) gm/dL Hct (34.0-46.0) % MCV (80.0-100.0) fL MCH (25.0-35.0) pg MCHC (31.0-37.0) g/dL RDW (11.5-15.5) % Plt Count (150-450) k/uL Neutrophils % % Lymphocytes % % Monocytes % % Eosinophils % % Basophils % % Neutrophils # (1.3-7.7) k/uL Lymphocytes # (1.0-4.8) k/uL Monocytes # (0-1.0) k/uL Eosinophils # (0-0.7) k/uL Basophils # (0-0.2) k/uL PT (9.0-12.0) sec INR (<1.2) APTT (22.0-30.0) sec Sodium (137-145) mmol/L Potassium (3.5-5.1) mmol/L Chloride (98-107) mmol/L Carbon Dioxide (22-30) mmol/L Anion Gap mmol/L BUN (7-17) mg/dL Creatinine (0.52-1.04) mg/dL Est GFR (CKD-EPI)AfAm (>60 ml/min/1.73 sqM) Est GFR (CKD-EPI)NonAf (>60 ml/min/1.73 sqM) Glucose (74-99) mg/dL Calcium (8.4-10.2) mg/dL Total Bilirubin (0.2-1.3) mg/dL AST (14-36) U/L ALT (4-34) U/L Alkaline Phosphatase (38-126) U/L Total Protein (6.3-8.2) g/dL Albumin (3.5-5.0) g/dL Lipase (23-300) U/L Urine Color Yellow Urine Appearance Cloudy H (Clear) Urine pH 7.5 (5.0-8.0) Ur Specific [place] 1.021 (1.001-1.035) Urine Protein Trace H (Negative) Urine Glucose (UA) Negative (Negative) Urine Ketones Negative (Negative) Urine Blood Negative (Negative) Urine Nitrite Negative (Negative) Urine Bilirubin Negative (Negative) Urine Urobilinogen <2.0 (<2.0) mg/dL Ur Leukocyte Esterase Negative (Negative) Urine RBC <1 (0-5) /hpf Urine WBC 1 (0-5) /hpf Ur Squamous Epith Cells 7 H (0-4) /hpf Urine Bacteria Occasional H (None) /hpf Urine Mucus Rare H (None) /hpf Urine HCG, Qual Not Detected (Not Detectd) Stool Occult Blood Negative (Negative) - Radiology Data Radiology results: report reviewed Nonobstructive bowel gas pattern. Disposition Clinical Impression: History of bloody stools Disposition: HOME SELF-CARE Condition: Stable Instructions (If sedation given, give patient instructions): Irritable Bowel Syndrome (ED), Infectious Colitis (ED) Additional Instructions: Please use medication as discussed. Clear liquid diet. Please follow up with family doctor if symptoms have not improved over the next two days. Please return to the emergency room if your symptoms increase or worsen or for any other concerns. Prescriptions: Amoxicillin/Potassium Clav [Augmentin 875-125 Tablet] 1 tab PO BID 3 Days #6 tab Is patient prescribed a controlled substance at d/c from ED?: No Referrals: Aaron Carter MD [Primary Care Provider] - 1-2 days Time of Disposition: 12:08
[2019-03-20 10:31] LABS: Basophils # (A) 0.1 k/uL (0-0.2); Basophils % (A) 1 %; Eosinophils # (A) 0.4 k/uL (0-0.7); Eosinophils % (A) 5 %; HCT 43.5 % (34.0-46.0); HGB 14.6 gm/dL (11.4-16.0); Lymphocytes % (A) 24 %; MCH 29.8 pg (25.0-35.0); MCHC 33.5 g/dL (31.0-37.0); MCV 88.9 fL (80.0-100.0); Mean Platelet Volume 7.2; Monocytes # (A) 0.4 k/uL (0-1.0); Monocytes % (A) 4 %; Neutrophils # (A) 5.4 k/uL (1.3-7.7); Neutrophils % (A) 64 %; Platelet Count 356 k/uL (150-450); RBC 4.89 m/uL (3.80-5.40); RDW 13.2 % (11.5-15.5); WBC 8.3 k/uL (3.8-10.6)
[2019-03-20 10:43] LABS: INR 0.9 (<1.2); Partial Thromboplastin Time 25.6 sec (22.0-30.0); Prothrombin Time 9.5 sec (9.0-12.0)
[2019-03-20 10:44] LABS: ALT 17 U/L (4-34); AST 22 U/L (14-36); African American GFR (CKD) >90 (>60 ml/min/1.73 sqM); Albumin 4.2 g/dL (3.5-5.0); Alkaline Phosphatase 75 U/L (38-126); Anion Gap 8 mmol/L; Blood Urea Nitrogen 11 mg/dL (7-17); Calcium 9.4 mg/dL (8.4-10.2); Carbon Dioxide 27 mmol/L (22-30); Chloride 106 mmol/L (98-107); Glucose 94 mg/dL (74-99); Non-African American GFR(CKD) >90 (>60 ml/min/1.73 sqM); Potassium 4.4 mmol/L (3.5-5.1); Sodium 141 mmol/L (137-145); Total Bilirubin 0.6 mg/dL (0.2-1.3); Total Protein 7.3 g/dL (6.3-8.2)
--- NOTE | 2019-03-20 11:14 | XR ---
EXAMINATION TYPE: XR KUB DATE OF EXAM: 03/20/2019 11:09 AM CLINICAL HISTORY: Right-sided abdominal pain. History of hiatal hernia, colitis and gastroesophageal reflux. TECHNIQUE: Single upright image of the abdomen is obtained. COMPARISON: 02/24/2018 FINDINGS: Unchanged right hemidiaphragm mild elevation. Scattered gas is seen in nondilated small bow el loops. Gas and fecal material is seen in nondilated colon. Levoscoliosis of the lumbar spine is se en. There is pneumoperitoneum or abnormal calcification appreciated. The lung bases are clear and the osseous structures are intact. IMPRESSION: Nonobstructive bowel gas pattern.
[2019-03-20 11:28] LABS: Appearance,Urine Cloudy (Clear); Bacteria,Urine Occasional /hpf; Bilirubin,Urine Negative (Negative); Blood,Urine Negative (Negative); Color,Urine Yellow; Glucose,Urine (UA) Negative (Negative); Ketones,Urine Negative (Negative); Leukocyte Esterase,Urine Negative (Negative); Mucus,Urine Rare /hpf; Nitrite,Urine Negative (Negative); PH, Urine 7.5 (5.0-8.0); Protein,Urine Trace (Negative); RBC,Urine <1 /hpf (0-5); Specific Gravity,Urine 1.021 (1.001-1.035); Squamous Epithelial Cell,Urine 7 /hpf (0-4); Urobilinogen,Urine <2.0 mg/dL (<2.0); WBC,Urine 1 /hpf (0-5)
[2019-03-20 11:55] VITALS: BP 103/60; RESP 19
[2019-03-20 12:05] VITALS: PULSE 67
== END 2019-03-20 12:28 | disposition home or self-care (01) ==
LOC: EC 09:43
DX: R10.9 Unspecified abdominal pain (principal); Z87.19 Personal history of other diseases of the digestive system; J44.9 Chronic obstructive pulmonary disease, unspecified; K21.9 Gastro-esophageal reflux disease without esophagitis; F32.9 Major depressive disorder, single episode, unspecified; F41.9 Anxiety disorder, unspecified; F17.200 Nicotine dependence, unspecified, uncomplicated; Z91.040 Latex allergy status; Z79.899 Other long term (current) drug therapy
CPT/HCPCS: 99284; 96374; 96375; 96361; 36415; 80053; 83690; 85025; 85610; 85730; 82272; 81001; 81025; 74018; J2405; C9113

== ENCOUNTER 2019-08-19 00:11 | Emergency (ER) | payer BC ==
--- NOTE | 2019-08-19 00:48 | ED ---
General Adult HPI - General Chief complaint: Shortness of Breath Stated complaint: Covid Time Seen by Provider: 08/19/19 00:26 Source: patient Mode of arrival: ambulatory Limitations: no limitations - History of Present Illness Initial comments: Patient is 24 -year-old female with history of asthma presenting to the emergency department with a chief complaint of shortness of breath. Patient states 2 weeks ago she was diagnosed with Covid at an urgent care. Patient states most of her symptoms have since resolved aside from the nausea vomiting diarrhea cough or shortness of breath. Patient reports a productive cough with white sputum production. She also reports bilateral wheezing with shortness of breath. Patient states that she uses Symbicort daily along with her rescue inhaler. Patient reports using in today with minimal improvement symptoms. Patient reports prior to arrival she was at another facility where she was discharged after breathing treatment and prednisone. Patient denies any fevers or chills at this time. - Related Data Home Medications Medication Instructions Recorded Confirmed Albuterol Inhaler (Mhu) [Ventolin 1 - 2 puff INHALATION RT-Q6H PRN 11/12/15 03/20/19 Hfa Inhaler] cloNIDine HCL [Catapres] 0.05 mg PO HS 11/12/15 03/20/19 Omeprazole 40 mg PO HS 03/20/19 03/20/19 Sertraline [Zoloft] 100 mg PO HS 03/20/19 03/20/19 Previous Rx's Medication Instructions Recorded Amoxicillin/Potassium Clav 1 tab PO BID 3 Days #6 tab 03/20/19 [Augmentin 875-125 Tablet] Allergies Allergy/AdvReac Type Severity Reaction Status Date / Time latex Allergy Rash/Hives Verified 08/19/19 00:23 Review of Systems ROS Statement: Those systems with pertinent positive or pertinent negative responses have been documented in the HPI. ROS Other: All systems not noted in ROS Statement are negative. Past Medical History Past Medical History: Asthma, COPD, GERD/Reflux, Pneumonia Additional Past Medical History / Comment(s): herniated esoph, MIGRAINES, colitis History of Any Multi-Drug Resistant Organisms: None Reported Past Surgical History: No Surgical Hx Reported Past Anesthesia/Blood Transfusion Reactions: No Reported Reaction Additional Past Anesthesia/Blood Transfusion Reaction / Comment(s): NEVER HAD ANY SX Past Psychological History: Anxiety, Depression Smoking Status: Current every day smoker Past Alcohol Use History: Occasional Past Drug Use History: Marijuana - Past Family History Father Family Medical History: No Reported History Additional Family Medical History / Comment(s): SEASONAL DEPRESSION Mother Family Medical History: COPD Additional Family Medical History / Comment(s): LEAKY HEART VALVE. ON MOMS SIDE OF FAMILY SKIN CANCER Sister(s) Family Medical History: No Reported History General Exam Limitations: no limitations General appearance: alert, in no apparent distress Head exam: Present: atraumatic, normocephalic, normal inspection Eye exam: Present: normal appearance, PERRL, EOMI Pupils: Present: normal accommodation ENT exam: Present: normal exam, normal oropharynx, mucous membranes moist Neck exam: Present: normal inspection, full ROM Respiratory exam: Present: wheezes (Moderate wheezing bilaterally) Cardiovascular Exam: Present: regular rate, normal rhythm, normal heart sounds Extremities exam: Present: normal inspection, full ROM Back exam: Present: normal inspection, full ROM Neurological exam: Present: alert, oriented X3 Psychiatric exam: Present: normal affect, normal mood Skin exam: Present: warm, dry, intact, normal color Course Vital Signs 08/19/19 08/19/19 08/19/19 00:19 01:15 01:34 Temperature 98.4 F Pulse Rate 104 H 100 107 H Respiratory 20 Rate Blood Pressure 112/74 O2 Sat by Pulse 94 L Oximetry Medical Decision Making - Medical Decision Making Patient is a 24-year-old male presenting to emergency Department with a chief complaint of shortness of breath. Patient was diagnosed with Covid 2 weeks ago. She reports worsening of her shortness of breath and cough over the last 4 days. On initial evaluation patient has an oxygen saturation of 94. Diffuse bilateral wheezing. The chest x-ray results from [facility] were obtained showing no acute processes. Patient was given IV steroids into nebulized DuoNeb treatments. On reevaluation, the wheezing has almost completely resolved. Patient reports she feels better. Patient was also given antiemetics and fluids. CBC shows leukocytosis which I suspect is secondary to the vomiting. Patient was ready discharged with a 6 day course of prednisone from [facility]. I advised her to finish the prednisone course. Return parameters were thoroughly discussed the patient was understanding and agreeable. Case discussed with physician. - Lab Data Result diagrams: 08/19/19 01:32 08/19/19 01:32 Lab Results 08/19/19 08/19/19 Range/Units 01:32 01:32 WBC 18.0 H (3.8-10.6) k/uL RBC 5.16 (3.80-5.40) m/uL Hgb 15.7 (11.4-16.0) gm/dL Hct 47.0 H (34.0-46.0) % MCV 91.1 (80.0-100.0) fL MCH 30.5 (25.0-35.0) pg MCHC 33.4 (31.0-37.0) g/dL RDW 13.9 (11.5-15.5) % Plt Count 418 (150-450) k/uL Neutrophils % 89 % Lymphocytes % 7 % Monocytes % 2 % Eosinophils % 2 % Basophils % 0 % Neutrophils # 16.1 H (1.3-7.7) k/uL Lymphocytes # 1.2 (1.0-4.8) k/uL Monocytes # 0.3 (0-1.0) k/uL Eosinophils # 0.3 (0-0.7) k/uL Basophils # 0.0 (0-0.2) k/uL Sodium 141 (137-145) mmol/L Potassium 4.4 (3.5-5.1) mmol/L Chloride 103 (98-107) mmol/L Carbon Dioxide 22 (22-30) mmol/L Anion Gap 16 mmol/L BUN 8 (7-17) mg/dL Creatinine 0.60 (0.52-1.04) mg/dL Est GFR (CKD-EPI)AfAm >90 (>60 ml/min/1.73 sqM) Est GFR (CKD-EPI)NonAf >90 (>60 ml/min/1.73 sqM) Glucose 129 H (74-99) mg/dL Calcium 10.0 (8.4-10.2) mg/dL Total Bilirubin 0.5 (0.2-1.3) mg/dL AST 23 (14-36) U/L ALT 20 (4-34) U/L Alkaline Phosphatase 92 (38-126) U/L Total Protein 8.2 (6.3-8.2) g/dL Albumin 5.1 H (3.5-5.0) g/dL Disposition Clinical Impression: Shortness of breath, Lower resp. tract infection Disposition: HOME SELF-CARE Condition: Good Instructions (If sedation given, give patient instructions): Asthma (ED) Additional Instructions: Continue taking the prednisone. Continue taking your inhaled corticosteroids and albuterol. Return to emergency department if symptoms worsen. Take Tylenol if you develop a fever. Is patient prescribed a controlled substance at d/c from ED?: No Referrals: Aaron Carter MD [Primary Care Provider] - 1-2 days Time of Disposition: 03:27
[2019-08-19] MEDS ORDERED: IPRATROPIUM-ALBUTEROL 3 ML NEB INHALATION STA ×2 (01:04→01:13)
[2019-08-19] MEDS ORDERED: SODIUM CHLORIDE 0.9% 1,000 ML IV STA (01:06)
[2019-08-19] MEDS ORDERED: ONDANSETRON 4 MG/2 ML VIAL IVP STA (01:06)
[2019-08-19] MEDS ORDERED: methylPREDNISolone SOD SUCCI 125 MG/2 ML VIAL IV STA (01:08)
[2019-08-19 01:49] LABS: Basophils % (A) 0 %; Eosinophils # (A) 0.3 k/uL (0-0.7); Eosinophils % (A) 2 %; HGB 15.7 gm/dL (11.4-16.0); Lymphocytes # (A) 1.2 k/uL (1.0-4.8); Lymphocytes % (A) 7 %; MCH 30.5 pg (25.0-35.0); MCHC 33.4 g/dL (31.0-37.0); MCV 91.1 fL (80.0-100.0); Monocytes # (A) 0.3 k/uL (0-1.0); Monocytes % (A) 2 %; Neutrophils # (A) 16.1 k/uL (1.3-7.7); Neutrophils % (A) 89 %; Platelet Count 418 k/uL (150-450); RBC 5.16 m/uL (3.80-5.40); RDW 13.9 % (11.5-15.5)
[2019-08-19 01:58] LABS: ALT 20 U/L (4-34); AST 23 U/L (14-36); African American GFR (CKD) >90 (>60 ml/min/1.73 sqM); Albumin 5.1 g/dL (3.5-5.0); Alkaline Phosphatase 92 U/L (38-126); Anion Gap 16 mmol/L; Blood Urea Nitrogen 8 mg/dL (7-17); Carbon Dioxide 22 mmol/L (22-30); Chloride 103 mmol/L (98-107); Glucose 129 mg/dL (74-99); Non-African American GFR(CKD) >90 (>60 ml/min/1.73 sqM); Potassium 4.4 mmol/L (3.5-5.1); Sodium 141 mmol/L (137-145); Total Bilirubin 0.5 mg/dL (0.2-1.3); Total Protein 8.2 g/dL (6.3-8.2)
[2019-08-19 03:48] VITALS: BP 113/62; PULSE 91; RESP 18; TEMP 98.5
== END 2019-08-19 03:30 | disposition home or self-care (01) ==
LOC: EC 00:11
DX: U07.1 COVID-19 (principal); J22 Unspecified acute lower respiratory infection; J44.9 Chronic obstructive pulmonary disease, unspecified; K21.9 Gastro-esophageal reflux disease without esophagitis; F41.9 Anxiety disorder, unspecified; F32.9 Major depressive disorder, single episode, unspecified; F17.200 Nicotine dependence, unspecified, uncomplicated; Z79.899 Other long term (current) drug therapy; Z91.040 Latex allergy status
CPT/HCPCS: 36415; 94640; 80053; 85025; 99285; 96374; 96375; 96361 ×2; J2930; J2405

== ENCOUNTER 2020-03-16 12:18 | Observation (INO) | payer BC ==
[2020-03-16] MEDS ORDERED: ONDANSETRON 4 MG/2 ML VIAL IVP STA (12:54)
[2020-03-16] MEDS ORDERED: SODIUM CHLORIDE 0.9% 1,000 ML IV STA ×2 (12:54)
[2020-03-16] MEDS ORDERED: HYDROmorphone 0.5 MG/0.5 ML SYRINGE IVP STA (12:54)
--- NOTE | 2020-03-16 13:01 | ED ---
General Adult HPI - General Chief complaint: Nausea/Vomiting/Diarrhea Stated complaint: vomiting Time Seen by Provider: 03/16/20 12:36 Source: patient, RN notes reviewed, old records reviewed Mode of arrival: ambulatory Limitations: no limitations - History of Present Illness Initial comments: 21-year-old feel presents return today with complaints of right upper quadrant abdominal pain, Patient reports that she has been having persistent nausea and vomiting for the past month. She was seen at [facility] and was sinus with gallstones. She was discharged with Zofran and advised follow-up with primary care doctor. She reports she's had continuous vomiting despite using Zofran and continues to complain of intermittent sharp right upper quadrant abdominal pain. She reports some loose stool. Denies any recent fever. - Related Data Home Medications Medication Instructions Recorded Confirmed Ondansetron Odt [Zofran Odt] 4 mg PO Q4H PRN 03/16/20 03/16/20 Allergies Allergy/AdvReac Type Severity Reaction Status Date / Time latex Allergy Rash/Hives Verified 03/16/20 13:25 Review of Systems ROS Statement: Those systems with pertinent positive or pertinent negative responses have been documented in the HPI. ROS Other: All systems not noted in ROS Statement are negative. Past Medical History Past Medical History: Asthma, COPD, GERD/Reflux, Pneumonia Additional Past Medical History / Comment(s): herniated esoph, MIGRAINES, colitis History of Any Multi-Drug Resistant Organisms: None Reported Past Surgical History: No Surgical Hx Reported Past Anesthesia/Blood Transfusion Reactions: No Reported Reaction Additional Past Anesthesia/Blood Transfusion Reaction / Comment(s): NEVER HAD ANY SX Past Psychological History: Anxiety, Depression Past Alcohol Use History: Occasional Past Drug Use History: Marijuana - Past Family History Father Family Medical History: No Reported History Additional Family Medical History / Comment(s): SEASONAL DEPRESSION Mother Family Medical History: COPD Additional Family Medical History / Comment(s): LEAKY HEART VALVE. ON MOMS SIDE OF FAMILY SKIN CANCER Sister(s) Family Medical History: No Reported History General Exam - General Exam Comments Initial Comments: 24 year old female, no distress. Limitations: no limitations General appearance: alert, in no apparent distress Head exam: Present: atraumatic, normocephalic, normal inspection Eye exam: Present: normal appearance, PERRL, EOMI. Absent: scleral icterus, conjunctival injection, periorbital swelling ENT exam: Present: normal exam, mucous membranes moist Neck exam: Present: normal inspection. Absent: tenderness, meningismus, lymphadenopathy Respiratory exam: Present: normal lung sounds bilaterally. Absent: respiratory distress, wheezes, rales, rhonchi, stridor Cardiovascular Exam: Present: regular rate, normal rhythm, normal heart sounds. Absent: systolic murmur, diastolic murmur, rubs, gallop, clicks GI/Abdominal exam: Present: tenderness ( right upper Quadrant tenderness), normal bowel sounds. Absent: soft, distended, guarding, rebound, rigid Extremities exam: Present: normal inspection, full ROM, normal capillary refill. Absent: tenderness, pedal edema, joint swelling, calf tenderness Back exam: Present: normal inspection Neurological exam: Present: alert, oriented X3, CN II-XII intact Psychiatric exam: Present: normal affect, normal mood Skin exam: Present: warm, dry, intact, normal color. Absent: rash Course Vital Signs 03/16/20 03/16/20 12:30 14:33 Temperature 98.2 F Pulse Rate 88 89 Respiratory 20 18 Rate Blood Pressure 107/71 117/68 O2 Sat by Pulse 98 99 Oximetry Medical Decision Making - Medical Decision Making 24-year-old female presents the ER today for evaluation with complaints of intractable nausea and vomiting as well as right upper quadrant abdominal pain. Patient reports that she's had a right upper quadrant pain postprandial and reports it seemed to be worse after eating pizza on Sunday. Patient had a computed tomography scan which showed dilated bile ducts. She had a Ultrasound completed on showed known gallstones in [employer]. Report is in chart. Today the ultrasound was completely done showing no gallstones, but evidence of a dilated common bile duct at 0.6 cm. Discussed the case with Dr. Blair 's symptoms consistent with biliary colic she may have evidence of choledocholithiasis. Patient's case was discussed with Dr. Vergara for admission with consult to GI as she may need ERCP. - Lab Data Result diagrams: 03/16/20 13:02 03/16/20 13:02 Lab Results 03/16/20 03/16/20 03/16/20 Range/Units 13:02 13:02 13:02 WBC 7.9 (3.8-10.6) k/uL RBC 5.23 (3.80-5.40) m/uL Hgb 16.1 H (11.4-16.0) gm/dL Hct 47.1 H (34.0-46.0) % MCV 90.1 (80.0-100.0) fL MCH 30.9 (25.0-35.0) pg MCHC 34.3 (31.0-37.0) g/dL RDW 12.8 (11.5-15.5) % Plt Count 356 (150-450) k/uL MPV 7.1 Neutrophils % 74 % Lymphocytes % 19 % Monocytes % 3 % Eosinophils % 1 % Basophils % 1 % Neutrophils # 5.8 (1.3-7.7) k/uL Lymphocytes # 1.5 (1.0-4.8) k/uL Monocytes # 0.3 (0-1.0) k/uL Eosinophils # 0.1 (0-0.7) k/uL Basophils # 0.1 (0-0.2) k/uL PT (9.0-12.0) sec INR (<1.2) APTT (22.0-30.0) sec Sodium 140 (137-145) mmol/L Potassium 4.4 (3.5-5.1) mmol/L Chloride 105 (98-107) mmol/L Carbon Dioxide 26 (22-30) mmol/L Anion Gap 9 mmol/L BUN 10 (7-17) mg/dL Creatinine 0.64 (0.52-1.04) mg/dL Est GFR (CKD-EPI)AfAm >90 (>60 ml/min/1.73 sqM) Est GFR (CKD-EPI)NonAf >90 (>60 ml/min/1.73 sqM) Glucose 89 (74-99) mg/dL Plasma Lactic Acid Beck (0.7-2.0) mmol/L Calcium 10.1 (8.4-10.2) mg/dL Total Bilirubin 0.9 (0.2-1.3) mg/dL AST 56 H (14-36) U/L ALT 93 H (4-34) U/L Alkaline Phosphatase 99 (38-126) U/L Total Protein 8.0 (6.3-8.2) g/dL Albumin 4.9 (3.5-5.0) g/dL Amylase 58 (30-110) U/L Lipase 118 (23-300) U/L Urine Color Yellow Urine Appearance Clear (Clear) Urine pH 8.5 H (5.0-8.0) Ur Specific Dewitt 1.019 (1.001-1.035) Urine Protein Trace H (Negative) Urine Glucose (UA) Negative (Negative) Urine Ketones 2+ H (Negative) Urine Blood Negative (Negative) Urine Nitrite Negative (Negative) Urine Bilirubin Negative (Negative) Urine Urobilinogen <2.0 (<2.0) mg/dL Ur Leukocyte Esterase Negative (Negative) Urine HCG, Qual (Not Detectd) 03/16/20 03/16/20 03/16/20 Range/Units 13:02 13:02 13:02 WBC (3.8-10.6) k/uL RBC (3.80-5.40) m/uL Hgb (11.4-16.0) gm/dL Hct (34.0-46.0) % MCV (80.0-100.0) fL MCH (25.0-35.0) pg MCHC (31.0-37.0) g/dL RDW (11.5-15.5) % Plt Count (150-450) k/uL MPV Neutrophils % % Lymphocytes % % Monocytes % % Eosinophils % % Basophils % % Neutrophils # (1.3-7.7) k/uL Lymphocytes # (1.0-4.8) k/uL Monocytes # (0-1.0) k/uL Eosinophils # (0-0.7) k/uL Basophils # (0-0.2) k/uL PT 9.9 (9.0-12.0) sec INR 1.0 (<1.2) APTT 24.2 (22.0-30.0) sec Sodium (137-145) mmol/L Potassium (3.5-5.1) mmol/L Chloride (98-107) mmol/L Carbon Dioxide (22-30) mmol/L Anion Gap mmol/L BUN (7-17) mg/dL Creatinine (0.52-1.04) mg/dL Est GFR (CKD-EPI)AfAm (>60 ml/min/1.73 sqM) Est GFR (CKD-EPI)NonAf (>60 ml/min/1.73 sqM) Glucose (74-99) mg/dL Plasma Lactic Acid Beck 1.2 (0.7-2.0) mmol/L Calcium (8.4-10.2) mg/dL Total Bilirubin (0.2-1.3) mg/dL AST (14-36) U/L ALT (4-34) U/L Alkaline Phosphatase (38-126) U/L Total Protein (6.3-8.2) g/dL Albumin (3.5-5.0) g/dL Amylase (30-110) U/L Lipase (23-300) U/L Urine Color Urine Appearance (Clear) Urine pH (5.0-8.0) Ur Specific Dewitt (1.001-1.035) Urine Protein (Negative) Urine Glucose (UA) (Negative) Urine Ketones (Negative) Urine Blood (Negative) Urine Nitrite (Negative) Urine Bilirubin (Negative) Urine Urobilinogen (<2.0) mg/dL Ur Leukocyte Esterase (Negative) Urine HCG, Qual Not Detected (Not Detectd) - Radiology Data Radiology results: report reviewed 03/16/20 14:19 12/ US from [place] Ultrasound shows fatty infiltration of the liver, trying mask or bladder stones noted. Contract to gallbladder. It's within normal limits at 4 mm gallbladder wall. No fluid. Common bile duct was normal. The study was limited due to gas. 03/16/20 16:16 03/16/20 16:17 CT abdomen shows nonspecific gas pattern obstruction. Appendix is normal. Mild intrahepatic biliary ductal dilation centrally. No gallstone. Follow-up right upper quadrant ultrasound. Current obtained for further evaluation. Gallbladder thickening for cystitis. Subsegmental Glencross changes in lungs and evasive atelectasis versus pneumonitis correlate clinically. Sounds of right upper quadrant shows common bile duct upper limits of normal at 0.6 cm. She has positive sonographic Nascimento sign. Disposition Clinical Impression: Acute cholecystitis Disposition: ADMITTED IP TO THIS HOSP Condition: Stable Is patient prescribed a controlled substance at d/c from ED?: No Referrals: None,Stated [Primary Care Provider] - 1-2 days Time of Disposition: 16:20
[2020-03-16 13:21] LABS: Basophils # (A) 0.1 k/uL (0-0.2); Basophils % (A) 1 %; Eosinophils # (A) 0.1 k/uL (0-0.7); Eosinophils % (A) 1 %; HCT 47.1 % (34.0-46.0); HGB 16.1 gm/dL (11.4-16.0); Lymphocytes # (A) 1.5 k/uL (1.0-4.8); Lymphocytes % (A) 19 %; MCH 30.9 pg (25.0-35.0); MCHC 34.3 g/dL (31.0-37.0); MCV 90.1 fL (80.0-100.0); Mean Platelet Volume 7.1; Monocytes # (A) 0.3 k/uL (0-1.0); Monocytes % (A) 3 %; Neutrophils # (A) 5.8 k/uL (1.3-7.7); Neutrophils % (A) 74 %; Platelet Count 356 k/uL (150-450); RBC 5.23 m/uL (3.80-5.40); RDW 12.8 % (11.5-15.5); WBC 7.9 k/uL (3.8-10.6)
[2020-03-16 13:31] LABS: ALT 93 U/L (4-34); AST 56 U/L (14-36); African American GFR (CKD) >90 (>60 ml/min/1.73 sqM); Albumin 4.9 g/dL (3.5-5.0); Alkaline Phosphatase 99 U/L (38-126); Amylase 58 U/L (30-110); Anion Gap 9 mmol/L; Blood Urea Nitrogen 10 mg/dL (7-17); Calcium 10.1 mg/dL (8.4-10.2); Carbon Dioxide 26 mmol/L (22-30); Chloride 105 mmol/L (98-107); Glucose 89 mg/dL (74-99); Lipase 118 U/L (23-300); Non-African American GFR(CKD) >90 (>60 ml/min/1.73 sqM); Potassium 4.4 mmol/L (3.5-5.1); Sodium 140 mmol/L (137-145); Total Bilirubin 0.9 mg/dL (0.2-1.3)
[2020-03-16 13:37] LABS: Partial Thromboplastin Time 24.2 sec (22.0-30.0); Prothrombin Time 9.9 sec (9.0-12.0)
[2020-03-16 14:01] LABS: Appearance,Urine Clear (Clear); Bilirubin,Urine Negative (Negative); Blood,Urine Negative (Negative); Color,Urine Yellow; Glucose,Urine (UA) Negative (Negative); Ketones,Urine 2+ (Negative); Leukocyte Esterase,Urine Negative (Negative); Nitrite,Urine Negative (Negative); PH, Urine 8.5 (5.0-8.0); Protein,Urine Trace (Negative); Specific Gravity,Urine 1.019 (1.001-1.035); Urobilinogen,Urine <2.0 mg/dL (<2.0)
--- NOTE | 2020-03-16 15:04 | CT ---
EXAMINATION TYPE: CT abdomen pelvis w con DATE OF EXAM: 03/16/2020 COMPARISON: 05/23/2015 HISTORY: RUQ pain CT DLP: 1096.9 mGycm Automated exposure control for dose reduction was used. CONTRAST: CT scan of the abdomen pelvis is performed with IV Contrast, patient injected with 100 mL of Isovue 3 00. FINDINGS- LUNG BASES-subsegmental changes involving the lung bases most likely in the basis of atelectasis. LIVER/GB-mild central biliary ductal dilation. No gallstone.. PANCREAS- No gross abnormality is seen. SPLEEN- No gross abnormality is seen. ADRENALS- No gross abnormality is seen. KIDNEYS/BLADDER- no hydronephrosis nephrolithiasis or renal mass. BOWEL-gas pattern nonspecific. There is a normal-appearing appendix. No diagnostic evidence of obstru ction.. LYMPH NODES- No greater than 1cm abdominal or pelvic lymph nodes areappreciated. OSSEOUS STRUCTURES- No significant abnormality is seen. OTHER- aorta of normal caliber. No evidence of aneurysm. Prominent soft tissue structures of the evi ateral adnexa likely related the ovaries which could be correlated with ultrasound as clinically georgie anted. However, findings are similar to the prior exam. Persistent mild bladder wall thickening. IMPRESSION- 1. Nonspecific gas pattern with no obstruction. Appendix normal. 2. There is mild intrahepatic biliary ductal dilation centrally. No gallstone. Follow-up right upper quadrant ultrasound could be obtained for further evaluation. 3. Mild bladder wall thickening correlate for cystitis. 4. Subsegmental groundglass changes involving the lungs may be on the basis of an atelectasis rather than pneumonitis correlate clinically.
--- NOTE | 2020-03-16 15:41 | US ---
EXAMINATION TYPE: US gallbladder DATE OF EXAM: 03/16/2020 COMPARISON: Same day CT CLINICAL HISTORY: biliary dilation. Pain EXAM MEASUREMENTS: Liver Length: 15.3 cm Gallbladder Wall: 0.2 cm CBD: 0.6 cm Right Kidney: 9.8 x 4.3 x 4.2 cm Pt moving constantly during exam Pancreas: wnl, tail obscured by overlying bowel gas Liver: wnl Gallbladder: wnl Evidence for sonographic Nascimento's sign: Yes CBD: Upper limits of normal Right Kidney: wnl, lower pole gassed out IMPRESSION: 1. No suspicious acute abnormality abdomen
[2020-03-16] MEDS ORDERED: NALOXONE 0.4 MG/ML 1 ML VIAL IV PRN (16:28)
[2020-03-16] MEDS ORDERED: IBUPROFEN 400 MG TAB PO PRN (16:28)
[2020-03-16] MEDS ORDERED: ACETAMINOPHEN TAB 325 MG TAB PO PRN (16:28)
[2020-03-16] MEDS: ONDANSETRON 4 MG/2 ML VIAL IVP PRN (20:55)
[2020-03-17] MEDS: HYDROmorphone 0.5 MG/0.5 ML SYRINGE IVP PRN ×3 (08:19→22:55)
[2020-03-17] MEDS: ONDANSETRON 4 MG/2 ML VIAL IVP PRN ×2 (08:22→17:22)
[2020-03-17] MEDS ORDERED: PANTOPRAZOLE 40 MG/10 ML VIAL IV SCH (09:00)
[2020-03-17 09:05] LABS: ALT 68 U/L (4-34); AST 32 U/L (14-36); African American GFR (CKD) >90 (>60 ml/min/1.73 sqM); Alkaline Phosphatase 78 U/L (38-126); Anion Gap 6 mmol/L; Blood Urea Nitrogen 7 mg/dL (7-17); Calcium 9.1 mg/dL (8.4-10.2); Carbon Dioxide 26 mmol/L (22-30); Chloride 108 mmol/L (98-107); Glucose 86 mg/dL (74-99); Non-African American GFR(CKD) >90 (>60 ml/min/1.73 sqM); Potassium 4.3 mmol/L (3.5-5.1); Sodium 140 mmol/L (137-145); Total Bilirubin 1.1 mg/dL (0.2-1.3); Total Protein 6.6 g/dL (6.3-8.2)
--- NOTE | 2020-03-17 13:38 | P.HPIM ---
History of Present Illness 24-year-old the pleasant female came in with complains of right upper quadrant abdominal pain and nausea vomiting. Patient was diagnosed with cholelithiasis at the [facility] a few days ago. Patient started having nausea vomiting yesterday morning. Patient underwent extensive workup all of which is negative except for mildly dilated common bile duct about the 0.6 cm. The patient the abdominal pain is in the right upper quadrant sharp in nature as well as crampy in nature toward to 8/10 in severity. Patient still has pain but not as severe. Patient was having an episode of loose stool as well patient denied any fever chills. Review of Systems REVIEW OF SYSTEMS: CONSTITUTIONAL: No fever, no malaise, no fatigue. HEENT: No recent visual problems or hearing problems. Denied any sore throat. CARDIOVASCULAR: No chest pain, orthopnea, PND, no palpitations, no syncope. PULMONARY: No shortness of breath, no cough, no hemoptysis. GASTROINTESTINAL: As mentioned in HPI NEUROLOGICAL: No headaches, no weakness, no numbness. HEMATOLOGICAL: Denies any bleeding or petechiae. GENITOURINARY: Denies any burning micturition, frequency, or urgency. MUSCULOSKELETAL/RHEUMATOLOGICAL: Denies any joint pain, swelling, or any muscle pain. ENDOCRINE: Denies any polyuria or polydipsia. The rest of the 14-point review of systems is negative. Past Medical History Past Medical History: Asthma, COPD, GERD/Reflux, Pneumonia Additional Past Medical History / Comment(s): herniated esoph, MIGRAINES, colitis History of Any Multi-Drug Resistant Organisms: None Reported Past Surgical History: No Surgical Hx Reported Past Anesthesia/Blood Transfusion Reactions: No Reported Reaction Additional Past Anesthesia/Blood Transfusion Reaction / Comment(s): NEVER HAD ANY SX Past Psychological History: Anxiety, Depression Additional Psychological History / Comment(s): currently gets counseling yumiko purcell at [facility] in [place]. Is an ongoing tobacco smoker. Did not relate to recreational drug use. Smoking Status: Vaper Past Alcohol Use History: Occasional Additional Past Alcohol Use History / Comment(s): STARTED SMOKING AT AGE 14 SMOKES 1/2 PPD Past Drug Use History: Marijuana - Past Family History Father Family Medical History: No Reported History Additional Family Medical History / Comment(s): SEASONAL DEPRESSION Mother Family Medical History: COPD Additional Family Medical History / Comment(s): LEAKY HEART VALVE. ON MOMS SIDE OF FAMILY SKIN CANCER Sister(s) Family Medical History: No Reported History Medications and Allergies Home Medications Medication Instructions Recorded Confirmed Type Ondansetron Odt [Zofran Odt] 4 mg PO Q4H PRN 03/16/20 03/16/20 History Allergies Allergy/AdvReac Type Severity Reaction Status Date / Time latex Allergy Rash/Hives Verified 03/16/20 13:25 Physical Exam Vitals: Vital Signs Temp Pulse Pulse Resp BP BP Pulse Ox 03/17/20 08:01 97.9 F 78 16 103/55 97 03/17/20 03:00 97.9 F 84 16 111/68 95 03/16/20 21:00 98.2 F 67 16 110/77 03/16/20 18:29 98.3 F 69 16 129/67 98 03/16/20 17:58 98.2 F 74 18 133/64 98 03/16/20 16:21 98 20 102/66 95 03/16/20 14:33 89 18 117/68 99 Intake and Output 03/16/20 03/17/20 03/17/20 22:59 06:59 14:59 Other: # Voids 2 Weight 88.451 kg PHYSICAL EXAMINATION: GENERAL: The patient is alert and oriented x3, not in any acute distress. Well developed, well nourished. HEENT: Pupils are round and equally reacting to light. EOMI. No scleral icterus. No conjunctival pallor. Normocephalic, atraumatic. No pharyngeal erythema. No thyromegaly. CARDIOVASCULAR: S1 and S2 present. No murmurs, rubs, or gallops. PULMONARY: Chest is clear to auscultation, no wheezing or crackles. ABDOMEN: Soft, nontender, nondistended, normoactive bowel sounds. No palpable organomegaly. MUSCULOSKELETAL: No joint swelling or deformity. EXTREMITIES: No cyanosis, clubbing, or pedal edema. NEUROLOGICAL: Gross neurological examination did not reveal any focal deficits. SKIN: No rashes. Results CBC & Chem 7: 03/16/20 13:02 03/17/20 08:35 Labs: Abnormal Lab Results - Last 24 Hours (Table) 03/16/20 03/16/20 03/16/20 Range/Units 13:02 13:02 13:02 Hgb 16.1 H (11.4-16.0) gm/dL Hct 47.1 H (34.0-46.0) % Chloride (98-107) mmol/L AST 56 H (14-36) U/L ALT 93 H (4-34) U/L Urine pH 8.5 H (5.0-8.0) Urine Protein Trace H (Negative) Urine Ketones 2+ H (Negative) 03/17/20 Range/Units 08:35 Hgb (11.4-16.0) gm/dL Hct (34.0-46.0) % Chloride 108 H (98-107) mmol/L AST (14-36) U/L ALT 68 H (4-34) U/L Urine pH (5.0-8.0) Urine Protein (Negative) Urine Ketones (Negative) Thrombosis Risk Factor Assmnt - Choose All That Apply Any of the Below Risk Factors Present?: No Assessment and Plan Plan: -Right upper quadrant abdominal pain: Etiology is not clear probably is secondary to a passed gallstone or a nonobstructed stone in the common bile duct: Patient had mildly elevated liver enzymes which improved today. Gastroenterology will evaluate the patient. Patient is also being treated for gastritis patient doesn't have any fever. -Possibility of for gastritis -COPD without any acute exertion - depression
--- NOTE | 2020-03-17 15:11 | P.GSCN ---
History of Present Illness Consult date: 03/17/20 History of present illness: CHIEF COMPLAINT: Right upper quadrant abdominal pain HISTORY OF PRESENT ILLNESS: This is a 24-year-old female with a known history of asthma, COPD, GERD, small hiatal hernia, migraines, colitis, anxiety and depression. Patient presents to emergency room with complaints of right upper quadrant abdominal pain with nausea and vomiting 1 month. She does report that symptoms do worsen after eating. However, the pain can come on at any time. She reports that the pain is severe and sharp. On March 20 the pain became very severe she went to [facility] in [place] and was told that there were gallstones present on that abdominal ultrasound. Patient also admits to having low-grade temps as high as 100.4. Computed tomography scan of abdomen and pelvis shows nonspecific gas pattern with no obstruction. Appendix normal. There is mild intrahepatic biliary ductal dilation centrally. No gallstone. Gallbladder ultrasound shows no suspicious acute abnormality of the abdomen. Nascimento sign was positive. Surgical consult was placed regarding gallstones. PAST MEDICAL HISTORY: See list. PAST SURGICAL HISTORY: See list. MEDICATIONS: See list. ALLERGIES: See list. SOCIAL HISTORY: No illicit drug use. REVIEW OF SYSTEMS: CONSTITUTIONAL: Denies fever or chills. HEENT: Denies blurred vision, vision changes, or eye pain. Denies hemoptysis CARDIOVASCULAR: Denies chest pain or pressure. RESPIRATORY: No shortness of breath. GASTROINTESTINAL: See HPI for pertinent findings HEMATOLOGIC: Denies bleeding disorders. GENITOURINARY: Denies any blood in urine or increased urinary frequency. SKIN: Denies pruitis. Denies rash. PHYSICAL EXAM: VITAL SIGNS: Reviewed GENERAL: Well-developed in no acute distress. HEENT: No sclera icterus. Extraocular movements grossly intact. Moist buccal mucosa. Head is atraumatic, normocephalic. No nasal drainage. ABDOMEN: Soft. Obese. Nondistended. Tenderness with palpation of the right upper quadrant NEUROLOGIC: Alert and oriented. Cranial nerves II through XII grossly intact. LABORATORY DATA: WBC 7.9 Hgb 16.1 sodium 140 potassium 4.3 creatinine 0.61 AST 56 down to 32 ALT 93 down to 68 total bili 1.1 lactic 1.2 Lipase 118 urine negative IMAGING: Computed tomography scan of abdomen and pelvis shows nonspecific gas pattern with no obstruction. Appendix normal. There is mild intrahepatic biliary ductal dilation centrally. No gallstone. Mild bladder wall thickening correlate for cystitis. Subsegmental groundglass changes involving the lungs may be on the basis of atelectasis rather than pneumonitis. Gallbladder ultrasound shows no suspicious acute abnormality of the abdomen. Nascimento sign was positive. ASSESSMENT: 1. Right upper quadrant abdominal pain possibly secondary to passing of a gallstone. Patient did have evidence of mildly elevated LFTs and computed tomography scan showing evidence of a mild intrahepatic ductal dilation. 2. History of small hiatal hernia 3. History of asthma and COPD PLAN: -Patient evaluated by GI service and is scheduled for MRCP -Continue IV fluids -Continue medications as needed for nausea and vomiting -Continue pain medication as needed -We'll continue to follow closely, further recommendations forthcoming Physician Hosiery Repairer note has been reviewed by physician. Signing provider agrees with the documented findings, assessment, and plan of care. Past Medical History Past Medical History: Asthma, COPD, GERD/Reflux, Pneumonia Additional Past Medical History / Comment(s): herniated esoph, MIGRAINES, colitis History of Any Multi-Drug Resistant Organisms: None Reported Past Surgical History: No Surgical Hx Reported Past Anesthesia/Blood Transfusion Reactions: No Reported Reaction Additional Past Anesthesia/Blood Transfusion Reaction / Comm: NEVER HAD ANY SX Past Psychological History: Anxiety, Depression Additional Psychological History / Comment(s): currently gets counseling yumiko purcell at [facility] in [place]. Is an ongoing tobacco smoker. Did not relate to recreational drug use. Smoking Status: Vaper Past Alcohol Use History: Occasional Additional Past Alcohol Use History / Comment(s): STARTED SMOKING AT AGE 14 SMOKES 1/2 PPD Past Drug Use History: Marijuana - Past Family History Father Family Medical History: No Reported History Additional Family Medical History / Comment(s): SEASONAL DEPRESSION Mother Family Medical History: COPD Additional Family Medical History / Comment(s): LEAKY HEART VALVE. ON MOMS SIDE OF FAMILY SKIN CANCER Sister(s) Family Medical History: No Reported History Medications and Allergies Home Medications Medication Instructions Recorded Confirmed Type Ondansetron Odt [Zofran Odt] 4 mg PO Q4H PRN 03/16/20 03/16/20 History Allergies Allergy/AdvReac Type Severity Reaction Status Date / Time latex Allergy Rash/Hives Verified 03/16/20 13:25 Surgical - Exam Vital Signs Temp Pulse Resp BP Pulse Ox 98.2 F 88 20 107/71 98 03/16/20 12:30 03/16/20 12:30 03/16/20 12:30 03/16/20 12:30 03/16/20 12:30 Results - Labs 03/16/20 13:02 03/17/20 08:35 Abnormal Lab Results - Last 24 Hours (Table) 03/17/20 Range/Units 08:35 Chloride 108 H (98-107) mmol/L ALT 68 H (4-34) U/L Diabetes panel 03/17/20 Range/Units 08:35 Sodium 140 (137-145) mmol/L Potassium 4.3 (3.5-5.1) mmol/L Chloride 108 H (98-107) mmol/L Carbon Dioxide 26 (22-30) mmol/L BUN 7 (7-17) mg/dL Creatinine 0.61 (0.52-1.04) mg/dL Glucose 86 (74-99) mg/dL Calcium 9.1 (8.4-10.2) mg/dL AST 32 (14-36) U/L ALT 68 H (4-34) U/L Alkaline Phosphatase 78 (38-126) U/L Total Protein 6.6 (6.3-8.2) g/dL Albumin 4.0 (3.5-5.0) g/dL Calcium panel 03/17/20 Range/Units 08:35 Calcium 9.1 (8.4-10.2) mg/dL Albumin 4.0 (3.5-5.0) g/dL Pituitary panel 03/17/20 Range/Units 08:35 Sodium 140 (137-145) mmol/L Potassium 4.3 (3.5-5.1) mmol/L Chloride 108 H (98-107) mmol/L Carbon Dioxide 26 (22-30) mmol/L BUN 7 (7-17) mg/dL Creatinine 0.61 (0.52-1.04) mg/dL Glucose 86 (74-99) mg/dL Calcium 9.1 (8.4-10.2) mg/dL Adrenal panel 03/17/20 Range/Units 08:35 Sodium 140 (137-145) mmol/L Potassium 4.3 (3.5-5.1) mmol/L Chloride 108 H (98-107) mmol/L Carbon Dioxide 26 (22-30) mmol/L BUN 7 (7-17) mg/dL Creatinine 0.61 (0.52-1.04) mg/dL Glucose 86 (74-99) mg/dL Calcium 9.1 (8.4-10.2) mg/dL Total Bilirubin 1.1 (0.2-1.3) mg/dL AST 32 (14-36) U/L ALT 68 H (4-34) U/L Alkaline Phosphatase 78 (38-126) U/L Total Protein 6.6 (6.3-8.2) g/dL Albumin 4.0 (3.5-5.0) g/dL
[2020-03-17 15:45] VITALS: BMI 33.5
--- NOTE | 2020-03-17 17:16 | MR ---
EXAMINATION TYPE: MR MRCP DATE OF EXAM: 03/17/2020 COMPARISON: None HISTORY: RUQ pain, hx gallstones, mild biliary ductal dilation Multiplanar multiecho imaging of the abdomen was performed without contrast. There are MRCP images. T here are 3-D post processed images. Liver shows no focal defect. Spleen appears intact. Stomach is in tact. There is no evidence of pancreatic mass. Pancreatic duct appears normal. There is fairly good visualization of the internal and extrahepatic biliary tree. Common bile duct me asures 5 mm. I see no definite filling defect. Gallbladder has normal size and contour. I see no gall bladder wall thickening. There is no adrenal mass. Kidneys have normal size and contour. There is no hydronephrosis. IMPRESSION: Negative MRCP exam. No evidence of bile duct obstruction. FINDINGS:
--- NOTE | 2020-03-17 17:22 | CONS ---
CONSULTATION DATE OF SERVICE: 03/17/2020 REASON FOR CONSULTATION: Abdominal pain and elevated LFTs. HISTORY OF PRESENT ILLNESS: The patient is a 24-year-old pleasant white female, came into the emergency room complaining of severe right upper quadrant abdominal pain associated with nausea, vomiting for the last one week duration. She had a similar episode about a week ago and went to [facility] and apparently was told and she had ultrasound done and was told she has gallstones. She was discharged home and yesterday her pain got much intense and hence came into the emergency room and had an ultrasound of the abdomen done again that showed no gallstones, but the CBD was slightly dilated 2.6 cm in size. She was also noted to have mild elevation of serum transaminases and hence we are consulted for consultation. This morning she continues to complain of abdominal pain. She reports no fever, chills, night sweats. PAST MEDICAL HISTORY: Asthma, GERD, pneumonia, migraine. PAST SURGICAL HISTORY: Unremarkable. MEDICATIONS: At home include Zofran p.r.n. ALLERGIES: To LATEX. SOCIAL HISTORY: No smoking, use of vaping device, no alcohol use. FAMILY HISTORY: Father seasonal depression. Mother had COPD. REVIEW OF SYSTEMS: CARDIOPULMONARY: No chest pain, no shortness of breath. \: No dysuria, hematuria. MUSCULOSKELETAL: Unremarkable. SKIN: Unremarkable. ENDOCRINE: Unremarkable. PSYCHIATRIC: Unremarkable except for anxiety, depression. NEUROLOGY: Unremarkable. ENT/VISION: Unremarkable. GI: As mentioned above. HEMATOLOGY: Unremarkable. CONSTITUTIONAL: No recent weight loss. No fever, chills, night sweats. PHYSICAL EXAMINATION: Blood pressure is 120/77, pulse is 70, temperature 97.8. HEENT: Examination unremarkable. Conjunctivae are pink, sclerae nonicteric, oral cavity no lesions. NECK: No JVD or lymph node enlargement. CHEST: Clear to auscultation. HEART: Regular rate and rhythm. ABDOMEN: Soft, bowel sounds are positive, no organomegaly. EXTREMITIES: No pedal edema. NEURO: She is alert and oriented x3. No focal deficits. ABDOMEN: Soft, there was mild tenderness in the right upper quadrant area. EXTREMITIES: No pedal edema. SKIN: No rashes. NEUROLOGIC: Alert and oriented x3. No focal deficits. LABS: From yesterday AST 56, ALT 93, T bilirubin and alkaline phosphatase are normal. Today repeat labs, AST 32, ALT 68. Basic metabolic panel is within normal limits. WBC is 7.9, hemoglobin 16.9, and platelets are within normal limits. Lipase is within normal limits. CT of the abdomen and pelvis done in the ER yesterday, showed mild intrahepatic biliary ductal dilation. No gallstones noted. The pancreas was normal. Rest of the examination with normal. Ultrasound showed dilated CBD at 0.6 mm in diameter with no gallstones noted and the gallbladder appeared normal with no gallstones. IMPRESSION: Right upper quadrant abdominal pain for the last one week duration in this patient who had ultrasound of the gallbladder done that did not show any evidence of gallstones or gallbladder wall thickening. Minimal dilation of CBD at 0.[address] also did not show any gallstones. However, the patient states that she went to the [facility] a week ago and was told she had gallstones on ultrasound of the abdomen but the results of which are not available at the time of this dictation. She is noted to have mild elevation of serum transaminases, but to this degree, I doubt we are dealing with choledocholithiasis but this cannot be entirely excluded. RECOMMENDATIONS: 1. Will proceed with an MRCP today. 2. Clear liquid diet. 3. Continue with Protonix 40 mg daily. 4. Agree with surgical consultation. 5. Will follow with you closely. Thank you for this consultation. MMODL / VIVIANN: [id number] /
[2020-03-17] MEDS: PANTOPRAZOLE 40 MG/10 ML VIAL IV SCH (20:21)
[2020-03-18] MEDS: ONDANSETRON 4 MG/2 ML VIAL IVP PRN ×2 (00:28→11:04)
[2020-03-18 03:10] VITALS: PULSE 67
[2020-03-18 08:19] VITALS: BP 132/85; RESP 14; TEMP 97.8
[2020-03-18] MEDS: PANTOPRAZOLE 40 MG/10 ML VIAL IV SCH (08:23)
[2020-03-18 09:13] LABS: Basophils % (A) 1 %; Eosinophils # (A) 0.2 k/uL (0-0.7); Eosinophils % (A) 3 %; HCT 43.8 % (34.0-46.0); HGB 14.7 gm/dL (11.4-16.0); Lymphocytes # (A) 1.6 k/uL (1.0-4.8); Lymphocytes % (A) 22 %; MCH 30.6 pg (25.0-35.0); MCHC 33.7 g/dL (31.0-37.0); MCV 90.8 fL (80.0-100.0); Mean Platelet Volume 7.2; Monocytes # (A) 0.4 k/uL (0-1.0); Monocytes % (A) 5 %; Neutrophils # (A) 5.2 k/uL (1.3-7.7); Neutrophils % (A) 69 %; Platelet Count 317 k/uL (150-450); RBC 4.82 m/uL (3.80-5.40); RDW 12.8 % (11.5-15.5); WBC 7.6 k/uL (3.8-10.6)
[2020-03-18 09:20] LABS: ALT 58 U/L (4-34); AST 30 U/L (14-36); African American GFR (CKD) >90 (>60 ml/min/1.73 sqM); Albumin 4.4 g/dL (3.5-5.0); Alkaline Phosphatase 78 U/L (38-126); Anion Gap 7 mmol/L; Blood Urea Nitrogen 10 mg/dL (7-17); Calcium 9.6 mg/dL (8.4-10.2); Carbon Dioxide 28 mmol/L (22-30); Chloride 105 mmol/L (98-107); Glucose 79 mg/dL (74-99); Non-African American GFR(CKD) >90 (>60 ml/min/1.73 sqM); Potassium 4.6 mmol/L (3.5-5.1); Sodium 140 mmol/L (137-145); Total Bilirubin 1.3 mg/dL (0.2-1.3); Total Protein 7.1 g/dL (6.3-8.2)
--- NOTE | 2020-03-18 11:16 | P.PN ---
Subjective Progress Note Date: 03/18/20 CHIEF COMPLAINT: Right upper quadrant abdominal pain HISTORY OF PRESENT ILLNESS: Patient is still complaining of right upper quadrant abdominal pain with nausea. She had 2 episodes of vomiting last night which was a clear liquid emesis. She does report may be a slight improvement in the right upper quadrant pain compared to yesterday. She underwent MRCP which was negative. Afebrile. WBC 7.6 AST 30 ALT 58 PHYSICAL EXAM: VITAL SIGNS: Reviewed. GENERAL: Well-developed in no acute distress. HEENT: No sclera icterus. Extraocular movements grossly intact. Moist buccal mucosa. Head is atraumatic, normocephalic. ABDOMEN: Soft. Nondistended. Right upper quadrant tenderness NEUROLOGIC: Alert and oriented. Cranial nerves II through XII grossly intact. ASSESSMENT: 1. Right upper quadrant abdominal pain. MRCP negative 2. History of small hiatal hernia 3. History of asthma and COPD PLAN: -Check HIDA scan -Further recommendations forthcoming after HIDA scan results Physician All Source Analyst note has been reviewed by physician. Signing provider agrees with the documented findings, assessment, and plan of care. Objective - Vital Signs Vital signs: Vital Signs Temp 97.8 F 03/18/20 08:14 Pulse 67 03/18/20 08:14 Resp 14 03/18/20 08:14 BP 132/85 03/18/20 08:14 Pulse Ox 96 03/18/20 03:00 Intake & Output 03/17/20 03/18/20 03/18/20 18:59 06:59 18:59 Intake Total 100 Balance 100 Weight 88.451 kg Intake: Oral 100 Other: # Voids 2 2 - Labs CBC & Chem 7: 03/18/20 08:44 03/18/20 08:44 Labs: Abnormal Lab Results - Last 24 Hours (Table) 03/18/20 Range/Units 08:44 ALT 58 H (4-34) U/L
--- NOTE | 2020-03-18 11:24 | P.DS ---
Providers Date of admission: 03/16/20 16:28 Attending physician: Christopher Vergara Consults: 03/16/20 16:28 Consult Physician Stat Consulting Provider: Sharon Rodarte Consult Reason/Comments: Dilated duct, RUQ pain Do you want consulting provider notified?: Yes 03/17/20 13:41 Consult Physician Routine Consulting Provider: Reji Pollock Consult Reason/Comments: Gall stones Do you want consulting provider notified?: Yes Primary care physician: Stated None Hospital Course: 24-year-old the pleasant female came in with complains of right upper quadrant abdominal pain and nausea vomiting. Patient was diagnosed with cholelithiasis at the [facility] a few days ago. Patient started having nausea vomiting yesterday morning. Patient underwent extensive workup all of which is negative except for mildly dilated common bile duct about the 0.6 cm. The patient the abdominal pain is in the right upper quadrant sharp in nature as well as crampy in nature toward to 8/10 in severity. Patient still has pain but not as severe. Patient was having an episode of loose stool as well patient denied any fever chills. 03/18/2020 Patient had an MRCP which didn't show any significant abnormality liver enzymes are within normal limits. Patient was evaluated by gastroenterology and surgery. Patient will follow with general surgery as an outpatient patient the doesn't have gallstones at this time may have passed a gallstone is complaining of mild abdominal pain patient may have superimposed gastritis patient will be discharged on Prilosec. Patient will be referred to primary care physician as an outpatient. PHYSICAL EXAMINATION: GENERAL: The patient is alert and oriented x3, not in any acute distress. Well developed, well nourished. HEENT: Pupils are round and equally reacting to light. EOMI. No scleral icterus. No conjunctival pallor. Normocephalic, atraumatic. No pharyngeal erythema. No thyromegaly. CARDIOVASCULAR: S1 and S2 present. No murmurs, rubs, or gallops. PULMONARY: Chest is clear to auscultation, no wheezing or crackles. ABDOMEN: Soft, nontender, nondistended, normoactive bowel sounds. No palpable organomegaly. MUSCULOSKELETAL: No joint swelling or deformity. EXTREMITIES: No cyanosis, clubbing, or pedal edema. NEUROLOGICAL: Gross neurological examination did not reveal any focal deficits. SKIN: No rashes. Assessment and Plan Plan: -Right upper quadrant abdominal pain: Etiology is not clear probably is secondary to a passed gallstone ADVERTISING AGENCY MANAGER did not show any significant abnormality patient had gallstones from her previous hospital physician imaging. Patient will follow-up with the general surgery as an outpatient -Possibility of for gastritis -COPD without any acute exertion - depression Patient Condition at Discharge: Stable Plan - Discharge Summary Discharge Rx Participant: No New Discharge Prescriptions: New Omeprazole [PriLOSEC] 40 mg PO AC-BRKFST #14 capsule. No Action Ondansetron Odt [Zofran Odt] 4 mg PO Q4H PRN PRN Reason: Nausea Discharge Medication List Ondansetron Odt [Zofran Odt] 4 mg PO Q4H PRN 03/16/20 [History] Omeprazole [PriLOSEC] 40 mg PO AC-BRKFST #14 capsule. 03/18/20 [Rx] Follow up Appointment(s)/Referral(s): Amie Petersen MD [REFERRING] - 1 Week Reji Pollock MD [STAFF PHYSICIAN] - 1 Week
--- NOTE | 2020-03-18 12:47 | P.PN ---
Subjective Progress Note Date: 03/18/20 Principal diagnosis: Abdominal pain and elevated LFTs A 24-year-old pleasant white female who came into the emergency room yesterday with complaints of abdominal pain, nausea, and vomiting for the last week's duration. She states that she been having nausea and vomiting with abdominal pain over one month out. However over the last week it has progressively gotten worse. She presented to the hospital this past Sunday which according to the patient and ultrasound report there were gallstones noted. She was discharged home with antiemetics and was supposed to follow-up with the general surgeon. She had an MRCP yesterday the impression stating negative MRCP exam. No evidence of bile duct obstruction. LFTs continued to trend down. Today's bilirubin 1.3, alkaline phosphatase 78, AST 30, ALT 58. Surgery is on consult. Objective - Vital Signs Vital signs: Vital Signs Temp 97.8 F 03/18/20 08:14 Pulse 67 03/18/20 08:14 Resp 14 03/18/20 08:14 BP 132/85 03/18/20 08:14 Pulse Ox 96 03/18/20 03:00 Intake & Output 03/17/20 03/18/20 03/18/20 18:59 06:59 18:59 Intake Total 100 Balance 100 Weight 88.451 kg Intake: Oral 100 Other: # Voids 2 2 - Exam General appearance: The patient is alert, oriented, in no acute distress. HET: Head is normocephalic and atraumatic. Conjunctiva pink. Sclera anicteric. Neck: Supple without lymphadenopathy. Abdomen: Soft, right upper quadrant tenderness, nondistended with bowel sounds. No guarding or rigidity. Extremities: Normal skin color and turgor. No pedal edema Neurological: No focal deficits. Alert and oriented 3. - Labs CBC & Chem 7: 03/18/20 08:44 03/18/20 08:44 Labs: Abnormal Lab Results - Last 24 Hours (Table) 03/18/20 Range/Units 08:44 ALT 58 H (4-34) U/L Assessment and Plan Assessment: Right upper quadrant abdominal pain for last 1 week duration was seen by outside hospital at [facility], which showed bladder stones. She had a repeat ultrasound in the emergency room which did not show any evidence of gallstones or gallbladder wall thickening. There was minimal dilation of the CBD and 0.[address] also did not show any gallstones. She was noted to have elevated serum transaminases. MRCP was ordered, results were negative with no evidence of bile duct obstruction. Surgery is on consult. They ordered HIDA scan for today. Plan is for discharge home. Plan: 1. Supportive care 2. Advance diet as tolerated 3. Continue Protonix 40 mg daily 4. Agree with surgical consultation 5. HIDA scan ordered per surgery 6. Patient may be discharged home from a gastroenterology standpoint with follow-up with surgery as an outpatient. Thank you for this consultation. Dr. Alphonso Rodarte I agree with the dictator's note, documented as a scribe by Carissa Rodriguez.
--- NOTE | 2020-03-18 13:48 | NM ---
EXAMINATION TYPE: NM hepatobiliary w CCK DATE OF EXAM: 03/18/2020 COMPARISON: NONE INDICATION: Abdomen pain TECHNIQUE: After the intravenous administration of 5.5 mCi Tc 99m Mebrofenin hepatobiliary scintigrap hy is performed. Images were obtained immediately post injection. FINDINGS: There is prompt uptake and excretion of radiotracer by the liver. Extrahepatic ducts are identified at 10 minutes. The gallbladder is visualized within 16 minutes. Small bowel activity is noted within 26 minutes. At one hour CCK was administered, patient was injected with 1.8 mcg of Kinevac, and gallbladder eject ion fraction is calculated at 98 %, which is nearly complete emptying. (Normal >35% and <80%.). IMPRESSION: 1. Correlate for biliary hyperkinesia.
[2020-03-18] MEDS ORDERED: PANTOPRAZOLE 40 MG TABLET PO SCH (17:30)
== END 2020-03-18 15:04 | disposition home or self-care (01) ==
LOC: EC 12:18 → 1SOBS 16:28
PROVIDERS: ADMIT Internal Medicine; ATTEND Internal Medicine
DX: K82.8 Other specified diseases of gallbladder (principal); K83.8 Other specified diseases of biliary tract; R11.2 Nausea with vomiting, unspecified; R19.7 Diarrhea, unspecified; R74.01 Elevation of levels of liver transaminase levels; R91.8 Other nonspecific abnormal finding of lung field; J44.9 Chronic obstructive pulmonary disease, unspecified; F32.9 Major depressive disorder, single episode, unspecified; K21.9 Gastro-esophageal reflux disease without esophagitis; K44.9 Diaphragmatic hernia without obstruction or gangrene; F41.9 Anxiety disorder, unspecified; F17.290 Nicotine dependence, other tobacco product, uncomplicated; F17.210 Nicotine dependence, cigarettes, uncomplicated; Z91.040 Latex allergy status; Z87.01 Personal history of pneumonia (recurrent); Z86.69 Personal history of other diseases of the nervous system and sense organs; Z87.19 Personal history of other diseases of the digestive system; Z81.8 Family history of other mental and behavioral disorders; Z82.5 Family history of asthma and other chronic lower respiratory diseases; Z82.49 Family history of ischemic heart disease and other diseases of the circulatory system; Z80.8 Family history of malignant neoplasm of other organs or systems
CPT/HCPCS: 96375 ×2; 96376 ×3; 96361; 96374; 99285; 36415; 80053 ×3; 82150; 83605; 83690; 85025 ×2; 85610; 85730; 81003; 81025; 76705; 74177; 74181; 78227; G0378 ×3; A9537; J2405 ×3; J2805; C9113 ×2; J1170 ×2; Q9967

== ENCOUNTER 2020-03-22 08:15 | Day surgery (SDC) | payer BC ==
[~2020-03-22 08:15] MED LIST: ACETAMINOPHEN TAB 500 MG TAB PO PRN; HEPARIN SODIUM,PORCINE 5,000 UNIT/ML 1 ML VIAL SQ PRN
[2020-03-22] MEDS ORDERED: LACTATED RINGERS 1,000 ML IV ONE (09:05)
[2020-03-22] MEDS: ONDANSETRON 4 MG/2 ML VIAL ONE ×2 (09:20→12:13)
[2020-03-22] MEDS ORDERED: DEXAMETHASONE SOD PHOSPHATE 4 MG/ML 1 ML VIAL IVP ONE (09:20)
[2020-03-22] MEDS ORDERED: LIDOCAINE 1% INJ 10MG/ML (20 ML MDV) ONE (09:56)
[2020-03-22] MEDS ORDERED: HYDROmorphone (PF) 1 MG/ML ONE (09:56)
[2020-03-22] MEDS ORDERED: ROCURONIUM 10 MG/ML (10 ML VIAL) IV ONE (09:56)
[2020-03-22] MEDS ORDERED: SUCCINYLCHOLINE CHLORIDE 100 MG/5 ML SYR IV ONE (09:56)
[2020-03-22] MEDS ORDERED: MIDAZOLAM 2 MG/2 ML VIAL ONE (09:56)
[2020-03-22] MEDS ORDERED: NEOSTIGMINE 1 MG/ML 10 ML VIAL ONE (09:56)
[2020-03-22] MEDS ORDERED: fentaNYL (PF) 50 MCG/ML 2 ML AMP ONE (09:56)
[2020-03-22] MEDS ORDERED: GLYCOPYRROLATE 0.2 MG/ML 2 ML VIAL ONE (09:56)
[2020-03-22] MEDS ORDERED: PROPOFOL 10 MG/ML 20 ML VIAL IV ONE (09:56)
[2020-03-22] MEDS ORDERED: BUPIVACAINE (PF) 0.25% 30 ML VIAL SQ ONE (10:08)
--- NOTE | 2020-03-22 10:38 | P.GSHP ---
History of Present Illness H&P Date: 03/22/20 Chief Complaint: Right upper quadrant pain This a 24-year-old female who presents today for laparoscopic cholecystectomy. Patient is a complete the right upper quadrant pain. Recent HIDA scan shows an abnormal ejection fraction Past Medical History Past Medical History: Asthma, COPD, GERD/Reflux, Pneumonia Additional Past Medical History / Comment(s): CURRENT: N & V, RIGHT UPPER QUANDRANT PAIN; OBS 03/16/20. Herniated esoph, MIGRAINES, colitis History of Any Multi-Drug Resistant Organisms: None Reported Past Surgical History: No Surgical Hx Reported Past Anesthesia/Blood Transfusion Reactions: Motion Sickness Additional Past Anesthesia/Blood Transfusion Reaction / Comment(s): NEVER HAD GENERAL ANESTHESIA. Past Psychological History: Anxiety, Depression Additional Psychological History / Comment(s): currently gets counseling yumiko purcell at [facility] in [place]. Is an ongoing tobacco smoker. Did not relate to recreational drug use. Smoking Status: Vaper Past Alcohol Use History: Occasional Additional Past Alcohol Use History / Comment(s): STARTED SMOKING AT AGE 14 SMOKES 1/2 PPD Past Drug Use History: Marijuana - Past Family History Father Family Medical History: No Reported History Additional Family Medical History / Comment(s): SEASONAL DEPRESSION Mother Family Medical History: COPD Additional Family Medical History / Comment(s): LEAKY HEART VALVE. ON MOMS SIDE OF FAMILY SKIN CANCER Sister(s) Family Medical History: No Reported History, Pulmonary Embolus Medications and Allergies Home Medications Medication Instructions Recorded Confirmed Type Ondansetron Odt [Zofran Odt] 4 mg PO Q4H PRN 03/16/20 03/22/20 History Omeprazole [PriLOSEC] 40 mg PO LANDON-BRKFST #14 capsule. 03/18/20 03/22/20 Rx Albuterol Inhaler [Ventolin Hfa 1 puff INHALATION DIRECTED PRN 03/19/20 03/22/20 History Inhaler] Allergies Allergy/AdvReac Type Severity Reaction Status Date / Time latex Allergy Rash/Hives Verified 03/22/20 08:49 adhesive AdvReac Rapid Verified 03/22/20 08:49 Heart Rate Surgical - Exam Vital Signs Temp Pulse Resp BP Pulse Ox 97.7 F 85 16 117/58 95 03/22/20 09:00 03/22/20 09:00 03/22/20 09:00 03/22/20 09:00 03/22/20 09:00 - General well developed, well nourished - Eyes PERRL - ENT normal pinna - Neck no masses - Respiratory normal expansion - Cardiovascular Rhythm: regular - Abdomen Abdomen: soft, non tender Assessment and Plan Assessment: Right quadrant pain Biliary dyskinesia Chronic low size We'll perform laparoscopic cholecystectomy
--- NOTE | 2020-03-22 10:39 | P.OP ---
Date of Procedure: 03/22/20 Preoperative Diagnosis: Cholecystitis Postoperative Diagnosis: Cholecystitis Procedure(s) Performed: Laparoscopic cholecystectomy Anesthesia: JAYME Surgeon: Reji Pollock Estimated Blood Loss (ml): 5 Pathology: other (gAll bladder) Condition: stable Disposition: PACU Description of Procedure: The patient was placed on the operating table. The patient received a general endotracheal tube anesthesia. The patients abdomen was prepped and draped in the usual sterile fashion. Through an infraumbilical stab incision, the fascia of the anterior abdominal wall was grasped with a pair of Kochers and then the Veress needle was placed in the peritoneal cavity. Position of the Veress needle was confirmed with positive drop test. The abdomen was then insufflated. After adequate insufflation, the 10 mm trocar was placed in the peritoneal cavity. Following this the laparoscope was placed in the peritoneal cavity. The patient was placed in the head-up, right side up position and then a 5 mm trocar was placed in the right lateral and right subcostal position under direct visualization. A 8 mm trocar was placed in the epigastric position. The gallbladder was grasped in the fundus and infundibulum. Traction on the gallbladder was placed in the lateral and the cephalad positions. The triangle of Calot was visualized.. The cystic duct was bluntly dissected until the union of the cystic duct and common bile duct was seen. A critical view of safety was achieved. The cystic duct was then divided and sealed with the Harmonic scissors. A PDS Endoloop was then placed throughout the cystic duct stump. The cystic artery divided and sealed with the Harmonic scissors. The gallbladder was then removed from the liver bed using Harmonic scissors. The gallbladder was then extracted through the epigastric port site. Operative field was checked for any bleeding spots and Harmonic scissors was used to coagulate the liver bed. The abdomen was irrigated. The trocars were removed. The skin was closed using interrupted 3-0 Vicryl suture. Dermabond dressing were applied. The patient tolerated the procedure well.
[2020-03-22 10:45] VITALS: TEMP 98
[2020-03-22] MEDS: HYDROmorphone 1 MG/ML 1 ML SYRINGE IVP ONE ×4 (10:48→11:15)
[2020-03-22] MEDS ORDERED: ONDANSETRON 4 MG/2 ML VIAL ONE (12:03)
[2020-03-22 12:49] VITALS: BP 112/80; PULSE 61; RESP 18
== END 2020-03-22 13:29 | disposition home or self-care (01) ==
LOC: OR 08:15
PROVIDERS: ATTEND Surgery
DX: K81.1 Chronic cholecystitis (principal); K82.8 Other specified diseases of gallbladder; F32.9 Major depressive disorder, single episode, unspecified; F41.9 Anxiety disorder, unspecified; K21.9 Gastro-esophageal reflux disease without esophagitis; J44.9 Chronic obstructive pulmonary disease, unspecified; F17.210 Nicotine dependence, cigarettes, uncomplicated; G43.909 Migraine, unspecified, not intractable, without status migrainosus; K52.9 Noninfective gastroenteritis and colitis, unspecified; Z87.01 Personal history of pneumonia (recurrent); Z79.899 Other long term (current) drug therapy; Z82.49 Family history of ischemic heart disease and other diseases of the circulatory system; Z82.5 Family history of asthma and other chronic lower respiratory diseases; Z91.040 Latex allergy status; Z91.048 Other nonmedicinal substance allergy status
CPT/HCPCS: 81025; 88304; 47562; J2250; J1100; J2710; J0690; J2405; J2001; J3010; J1170; J0330; J2704

== ENCOUNTER 2020-06-03 12:42 | Emergency (ER) | payer BC ==
[2020-06-03 12:51] VITALS: BP 124/75; PULSE 85; RESP 18; TEMP 98.5
[2020-06-03] MEDS ORDERED: ONDANSETRON 4 MG/2 ML VIAL IVP STA (13:10)
[2020-06-03] MEDS ORDERED: PANTOPRAZOLE 40 MG/10 ML VIAL IVP STA (13:10)
[2020-06-03] MEDS ORDERED: SODIUM CHLORIDE 0.9% 1,000 ML IV STA (13:10)
--- NOTE | 2020-06-03 13:34 | ED ---
Abdominal Pain HPI - General Chief Complaint: Abdominal Pain Stated Complaint: Abd pain/vomiting Time Seen by Provider: 06/03/20 12:58 Source: patient Mode of arrival: ambulatory Limitations: no limitations - History of Present Illness Initial Comments: Patient is a 25-year-old female presenting to the emergency Department with complaints of abdominal pain, nausea and vomiting along with diarrhea has been ongoing for the past 2 months. Patient states she is also lost approximately 30 pounds the last 2 months. She states her symptoms seem to be worsening over the past few days she decided to come to the ER to be seen. Patient was seen in another ER last week, in [place], states that they "did not do anything, said it could be an ulcer and started her on omeprazole." She admits to history of GERD, hiatal hernia, cholecystectomy. No other abdominal surgeries. She's had no fever or chills. She denies being secondary to just getting off her menstrual cycle. She has no further complaints at this time. Upon arrival to the ER her vitals are stable. - Related Data Home Medications Medication Instructions Recorded Confirmed Omeprazole 40 mg PO DAILY 06/03/20 06/03/20 Previous Rx's Medication Instructions Recorded Dicyclomine [Bentyl] 20 mg PO TID #30 tablet 06/03/20 Allergies Allergy/AdvReac Type Severity Reaction Status Date / Time latex Allergy Rash/Hives Verified 06/03/20 14:11 adhesive AdvReac Rapid Verified 06/03/20 14:11 Heart Rate Review of Systems ROS Statement: Those systems with pertinent positive or pertinent negative responses have been documented in the HPI. ROS Other: All systems not noted in ROS Statement are negative. Past Medical History Past Medical History: Asthma, COPD, GERD/Reflux, Pneumonia Additional Past Medical History / Comment(s): CURRENT: N & V, RIGHT UPPER QUANDRANT PAIN; OBS 03/16/20. Herniated esoph, MIGRAINES, colitis History of Any Multi-Drug Resistant Organisms: None Reported Past Surgical History: Cholecystectomy Past Anesthesia/Blood Transfusion Reactions: Motion Sickness Additional Past Anesthesia/Blood Transfusion Reaction / Comment(s): NEVER HAD GENERAL ANESTHESIA. Past Psychological History: Anxiety, Depression Smoking Status: Vaper Past Alcohol Use History: Rare Past Drug Use History: Marijuana - Past Family History Father Family Medical History: No Reported History Additional Family Medical History / Comment(s): SEASONAL DEPRESSION Mother Family Medical History: COPD Additional Family Medical History / Comment(s): LEAKY HEART VALVE. ON MOMS SIDE OF FAMILY SKIN CANCER Sister(s) Family Medical History: No Reported History, Pulmonary Embolus General Exam - General Exam Comments Initial Comments: GENERAL: Patient is well-developed and well-nourished. Patient is nontoxic and in no acute distress. HEAD: Atraumatic, normocephalic. EYES: Pupils equal round and reactive to light, extraocular movements intact, sclera anicteric, conjunctiva are normal. Eyelids were unremarkable. ENT: TMs normal, nares patent, oropharynx clear without exudates. Moist mucous membranes. NECK: Normal range of motion, supple without lymphadenopathy or JVD. LUNGS: Unlabored respirations. Breath sounds clear to auscultation bilaterally and equal. No wheezes rales or rhonchi. HEART: Regular rate and rhythm without murmurs, rubs or gallops. ABDOMEN: Soft, generalized abdominal tenderness with palpation, no specific area pain, normoactive bowel sounds. No guarding, no rebound. No masses appreciated. : Deferred MUSCULOSKELETAL: Normal extremities with adequate strength and normal range of motion, no pitting or edema. No clubbing or cyanosis. NEUROLOGICAL: Patient is alert and oriented x 3. Motor and sensory are also intact. Cranial nerves II through XII grossly intact. Symmetrical smile. Normal speech, normal gait. PSYCH: Normal mood, normal affect. SKIN: Warm, Dry, normal turgor, no rashes or lesions noted. Limitations: no limitations Course Vital Signs 06/03/20 12:47 Temperature 98.5 F Pulse Rate 85 Respiratory 18 Rate Blood Pressure 124/75 O2 Sat by Pulse 96 Oximetry Medical Decision Making - Medical Decision Making Patient is a 25-year-old female here for abdominal pain has been increasing over the past week but this is a chronic issue in nature 2-3 months now. Some nausea and vomiting as well. Idols were stable upon arrival, labs reveal a normal lactic acid 1.0, glucose was slightly low at 56, urine shows no evidence of infection, 4+ ketones. Patient was given a liter and half of fluids. I did end up doing a CT of her abdomen, no acute findings. I discussed with patient that her symptoms could be related to an ulcer or chronic issues. Did recommend follow up with GI specialist is. She states she does not point with the GI in [place]. I'll also give her a trial of Bentyl for the cramping. Patient also has a prescription for omeprazole, recommended continuing with this. Patient is stable for discharge. Patient is in agreement with this plan of care. Return parameters were discussed with the patient and they verbalized understanding. Case discussed with Dr. Osorio. - Lab Data Result diagrams: 06/03/20 13:30 06/03/20 13:30 Lab Results 06/03/20 06/03/20 06/03/20 Range/Units 13:30 13:30 13:30 WBC 10.2 (3.8-10.6) k/uL RBC 4.95 (3.80-5.40) m/uL Hgb 14.9 (11.4-16.0) gm/dL Hct 44.0 (34.0-46.0) % MCV 88.8 (80.0-100.0) fL MCH 30.1 (25.0-35.0) pg MCHC 33.9 (31.0-37.0) g/dL RDW 13.4 (11.5-15.5) % Plt Count 368 (150-450) k/uL MPV 7.1 Neutrophils % 73 % Lymphocytes % 21 % Monocytes % 3 % Eosinophils % 1 % Basophils % 0 % Neutrophils # 7.5 (1.3-7.7) k/uL Lymphocytes # 2.1 (1.0-4.8) k/uL Monocytes # 0.4 (0-1.0) k/uL Eosinophils # 0.1 (0-0.7) k/uL Basophils # 0.0 (0-0.2) k/uL PT (9.0-12.0) sec INR (<1.2) APTT (22.0-30.0) sec Sodium 140 (137-145) mmol/L Potassium 4.4 (3.5-5.1) mmol/L Chloride 101 (98-107) mmol/L Carbon Dioxide 22 (22-30) mmol/L Anion Gap 17 mmol/L BUN 11 (7-17) mg/dL Creatinine 0.70 (0.52-1.04) mg/dL Est GFR (CKD-EPI)AfAm >90 (>60 ml/min/1.73 sqM) Est GFR (CKD-EPI)NonAf >90 (>60 ml/min/1.73 sqM) Glucose 56 L (74-99) mg/dL Plasma Lactic Acid Beck (0.7-2.0) mmol/L Calcium 9.7 (8.4-10.2) mg/dL Total Bilirubin 1.0 (0.2-1.3) mg/dL AST 23 (14-36) U/L ALT 27 (4-34) U/L Alkaline Phosphatase 82 (38-126) U/L Total Protein 7.9 (6.3-8.2) g/dL Albumin 5.0 (3.5-5.0) g/dL Amylase 46 (30-110) U/L Lipase 83 (23-300) U/L Urine Color Yellow Urine Appearance Clear (Clear) Urine pH 5.5 (5.0-8.0) Ur Specific [place] 1.027 (1.001-1.035) Urine Protein 1+ H (Negative) Urine Glucose (UA) Negative (Negative) Urine Ketones 4+ H (Negative) Urine Blood Small H (Negative) Urine Nitrite Negative (Negative) Urine Bilirubin Negative (Negative) Urine Urobilinogen <2.0 (<2.0) mg/dL Ur Leukocyte Esterase Negative (Negative) Urine RBC 1 (0-5) /hpf Urine WBC 1 (0-5) /hpf Ur Squamous Epith Cells 6 H (0-4) /hpf Urine Bacteria Rare H (None) /hpf Urine Mucus Rare H (None) /hpf Urine HCG, Qual (Not Detectd) 06/03/20 06/03/20 06/03/20 Range/Units 13:30 13:30 13:30 WBC (3.8-10.6) k/uL RBC (3.80-5.40) m/uL Hgb (11.4-16.0) gm/dL Hct (34.0-46.0) % MCV (80.0-100.0) fL MCH (25.0-35.0) pg MCHC (31.0-37.0) g/dL RDW (11.5-15.5) % Plt Count (150-450) k/uL MPV Neutrophils % % Lymphocytes % % Monocytes % % Eosinophils % % Basophils % % Neutrophils # (1.3-7.7) k/uL Lymphocytes # (1.0-4.8) k/uL Monocytes # (0-1.0) k/uL Eosinophils # (0-0.7) k/uL Basophils # (0-0.2) k/uL PT 10.8 (9.0-12.0) sec INR 1.0 (<1.2) APTT 22.6 (22.0-30.0) sec Sodium (137-145) mmol/L Potassium (3.5-5.1) mmol/L Chloride (98-107) mmol/L Carbon Dioxide (22-30) mmol/L Anion Gap mmol/L BUN (7-17) mg/dL Creatinine (0.52-1.04) mg/dL Est GFR (CKD-EPI)AfAm (>60 ml/min/1.73 sqM) Est GFR (CKD-EPI)NonAf (>60 ml/min/1.73 sqM) Glucose (74-99) mg/dL Plasma Lactic Acid Beck 1.0 (0.7-2.0) mmol/L Calcium (8.4-10.2) mg/dL Total Bilirubin (0.2-1.3) mg/dL AST (14-36) U/L ALT (4-34) U/L Alkaline Phosphatase (38-126) U/L Total Protein (6.3-8.2) g/dL Albumin (3.5-5.0) g/dL Amylase (30-110) U/L Lipase (23-300) U/L Urine Color Urine Appearance (Clear) Urine pH (5.0-8.0) Ur Specific [place] (1.001-1.035) Urine Protein (Negative) Urine Glucose (UA) (Negative) Urine Ketones (Negative) Urine Blood (Negative) Urine Nitrite (Negative) Urine Bilirubin (Negative) Urine Urobilinogen (<2.0) mg/dL Ur Leukocyte Esterase (Negative) Urine RBC (0-5) /hpf Urine WBC (0-5) /hpf Ur Squamous Epith Cells (0-4) /hpf Urine Bacteria (None) /hpf Urine Mucus (None) /hpf Urine HCG, Qual Not Detected (Not Detectd) Disposition Clinical Impression: Abdominal pain, Dehydration, Nausea & vomiting Disposition: HOME SELF-CARE Condition: Stable Instructions (If sedation given, give patient instructions): Abdominal Pain (ED) Additional Instructions: Please return to the Emergency Department if symptoms worsen or any other concerns. Labs and computed tomography scan today were normal. Continue to increase fluid intake. I do recommend omeprazole daily. Trial of Bentyl for abdominal cramping. Please follow up with GI specialist this as discussed. Prescriptions: Dicyclomine [Bentyl] 20 mg PO TID #30 tablet Is patient prescribed a controlled substance at d/c from ED?: No Referrals: None,Stated [Primary Care Provider] - 1-2 days
[2020-06-03 13:48] LABS: Basophils % (A) 0 %; Eosinophils # (A) 0.1 k/uL (0-0.7); Eosinophils % (A) 1 %; HGB 14.9 gm/dL (11.4-16.0); Lymphocytes # (A) 2.1 k/uL (1.0-4.8); Lymphocytes % (A) 21 %; MCH 30.1 pg (25.0-35.0); MCHC 33.9 g/dL (31.0-37.0); MCV 88.8 fL (80.0-100.0); Mean Platelet Volume 7.1; Monocytes # (A) 0.4 k/uL (0-1.0); Monocytes % (A) 3 %; Neutrophils # (A) 7.5 k/uL (1.3-7.7); Neutrophils % (A) 73 %; Platelet Count 368 k/uL (150-450); RBC 4.95 m/uL (3.80-5.40); RDW 13.4 % (11.5-15.5); WBC 10.2 k/uL (3.8-10.6)
[2020-06-03 14:02] LABS: ALT 27 U/L (4-34); AST 23 U/L (14-36); African American GFR (CKD) >90 (>60 ml/min/1.73 sqM); Alkaline Phosphatase 82 U/L (38-126); Amylase 46 U/L (30-110); Anion Gap 17 mmol/L; Blood Urea Nitrogen 11 mg/dL (7-17); Calcium 9.7 mg/dL (8.4-10.2); Carbon Dioxide 22 mmol/L (22-30); Chloride 101 mmol/L (98-107); Glucose 56 mg/dL (74-99); Lipase 83 U/L (23-300); Non-African American GFR(CKD) >90 (>60 ml/min/1.73 sqM); Partial Thromboplastin Time 22.6 sec (22.0-30.0); Potassium 4.4 mmol/L (3.5-5.1); Prothrombin Time 10.8 sec (9.0-12.0); Sodium 140 mmol/L (137-145); Total Protein 7.9 g/dL (6.3-8.2)
[2020-06-03 14:07] LABS: Appearance,Urine Clear (Clear); Bacteria,Urine Rare /hpf; Bilirubin,Urine Negative (Negative); Blood,Urine Small (Negative); Color,Urine Yellow; Glucose,Urine (UA) Negative (Negative); Ketones,Urine 4+ (Negative); Leukocyte Esterase,Urine Negative (Negative); Mucus,Urine Rare /hpf; Nitrite,Urine Negative (Negative); PH, Urine 5.5 (5.0-8.0); Protein,Urine 1+ (Negative); RBC,Urine 1 /hpf (0-5); Specific Gravity,Urine 1.027 (1.001-1.035); Squamous Epithelial Cell,Urine 6 /hpf (0-4); Urobilinogen,Urine <2.0 mg/dL (<2.0); WBC,Urine 1 /hpf (0-5)
[2020-06-03] MEDS ORDERED: SODIUM CHLORIDE 0.9% 500 ML 500 ML IV STA (14:12)
--- NOTE | 2020-06-03 14:53 | CT ---
EXAMINATION TYPE: CT abdomen pelvis w con DATE OF EXAM: 06/03/2020 COMPARISON: 03/16/2020 HISTORY: 25 year-old female abdominal pain, nausea, vomiting and weight loss. Recent rufus. TECHNIQUE: Contiguous axial scanning of the abdomen and pelvis following administration of 100 ml Iso usman 300 IV contrast. Delayed images through the kidneys and coronal/sagittal reconstructions perform ed. CT DLP: 797.9 mGycm Automated exposure control for dose reduction was used. FINDINGS: Heart normal size without pericardial effusion. Lung bases clear without pleural effusion. Some focal fat along the anterior falciform ligament. No focal liver lesion otherwise seen. No biliar y ductal dilatation. Portal venous system is patent. Cholecystectomy clips noted. There is mild hazy density in the region of the gallbladder fossa likely due to recent postcholecystectomy status. Adrenal glands, kidneys, spleen with hilar splenule, and pancreas appear within normal limits. No dilated small bowel, free fluid, or free air. Some clustered prominent but nonenlarged right lower quadrant mesenteric lymph nodes measuring up to 7 mm. Segments of a normal appendix are visualized, for example, refer to coronal image 60. No signif icant stool burden. No pericolonic inflammatory change. Bladder is collapsed but shows mild to moderate circumferential wall thickening. Uterus anteverted. P rominent follicular change in both ovaries. The ovaries demonstrate volumes up to 17.8 mL which is wi thin normal limits. No abnormal fluid collection in the pelvis or pelvic lymphadenopathy. Bones: No osseous destructive process. IMPRESSION: 1. STATUS POST CHOLECYSTECTOMY. THERE IS VERY SUBTLE HAZY DENSITY IN THE REGION OF THE GALLBLADDER FO SSA LIKELY RELATING TO RECENT CHOLECYSTECTOMY STATUS. 2. MILD TO MODERATE CIRCUMFERENTIAL BLADDER WALL THICKENING. CORRELATE TO EXCLUDE CYSTITIS. 3. PROMINENT FOLLICULAR CHANGE IN THE BILATERAL OVARIES LIKELY PHYSIOLOGIC. IF INDICATED, OUTPATIENT ULTRASOUND COULD FURTHER ASSESS THE OVARIAN MORPHOLOGY TO EXCLUDE POLYCYSTIC OVARIES.
== END 2020-06-03 15:30 | disposition home or self-care (01) ==
LOC: EC 12:42
DX: R10.9 Unspecified abdominal pain (principal); E86.0 Dehydration; R11.2 Nausea with vomiting, unspecified; K21.9 Gastro-esophageal reflux disease without esophagitis; K44.9 Diaphragmatic hernia without obstruction or gangrene; F17.290 Nicotine dependence, other tobacco product, uncomplicated; Z79.899 Other long term (current) drug therapy; Z91.040 Latex allergy status; Z91.048 Other nonmedicinal substance allergy status; Z90.49 Acquired absence of other specified parts of digestive tract
CPT/HCPCS: 36415; 80053; 82150; 83605; 83690; 85025; 85610; 85730; 81001; 81025; 74177; 99284; 96374; 96375; 96361; J2405; C9113; Q9967

== ENCOUNTER 2020-07-31 11:57 | Inpatient (IN) | payer BC ==
--- NOTE | 2020-07-31 12:32 | ED ---
Psych HPI - General Chief Complaint: Psychiatric Symptoms Stated Complaint: EPS eval Time Seen by Provider: 07/31/20 12:09 Source: patient, RN notes reviewed Mode of arrival: ambulatory - History of Present Illness Initial Comments: Patient is a 25-year-old female that presents to emergency department with suicidal ideations and a plan to take her medications just sleep. She notes that she was recently diagnosed with bipolar and PTSD. She also noted that these thoughts started about 3 weeks ago when she was put on risperidone that cause an adverse effect of increased anxiety. She was in mild emotional distress while sitting up in bed during the exam interview. She notes that this was her first real time having suicidal thoughts. She noted that she's been struggling with depression since she was about 14 years old. She denied any chest pain shortness breath headache nausea found diarrhea constipation fever fatigue chills illicit substance use. She did note that she's been taking her medications as prescribed. And following up with her psychiatrist. - Related Data Home Medications Medication Instructions Recorded Confirmed Omeprazole 40 mg PO DAILY 06/03/20 07/31/20 Escitalopram [Lexapro] 5 mg PO DAILY 07/31/20 07/31/20 Prazosin HCl 1 mg PO HS 07/31/20 07/31/20 atenoloL [Atenolol] 25 mg PO HS 07/31/20 07/31/20 Allergies Allergy/AdvReac Type Severity Reaction Status Date / Time latex Allergy Rash/Hives Verified 07/31/20 14:00 adhesive AdvReac Rapid Verified 07/31/20 14:00 Heart Rate Review of Systems ROS Statement: Those systems with pertinent positive or pertinent negative responses have been documented in the HPI. ROS Other: All systems not noted in ROS Statement are negative. Past Medical History Past Medical History: Asthma, COPD, GERD/Reflux, Pneumonia Additional Past Medical History / Comment(s): CURRENT: N & V, RIGHT UPPER QUANDRANT PAIN; OBS 03/16/20. Herniated esoph, MIGRAINES, colitis History of Any Multi-Drug Resistant Organisms: None Reported Past Surgical History: Cholecystectomy Past Anesthesia/Blood Transfusion Reactions: Motion Sickness Additional Past Anesthesia/Blood Transfusion Reaction / Comment(s): NEVER HAD GENERAL ANESTHESIA. Past Psychological History: Anxiety, Depression Smoking Status: Vaper Past Alcohol Use History: Rare Past Drug Use History: Marijuana - Past Family History Father Family Medical History: No Reported History Additional Family Medical History / Comment(s): SEASONAL DEPRESSION Mother Family Medical History: COPD Additional Family Medical History / Comment(s): LEAKY HEART VALVE. ON MOMS SIDE OF FAMILY SKIN CANCER Sister(s) Family Medical History: No Reported History, Pulmonary Embolus General Exam Limitations: no limitations General appearance: alert, in no apparent distress Head exam: Present: atraumatic, normocephalic, normal inspection Eye exam: Present: normal appearance, PERRL, EOMI. Absent: scleral icterus, conjunctival injection, periorbital swelling Neck exam: Present: normal inspection. Absent: tenderness, meningismus, lymphadenopathy Respiratory exam: Present: normal lung sounds bilaterally. Absent: respiratory distress, wheezes, rales, rhonchi, stridor Cardiovascular Exam: Present: regular rate, normal rhythm, normal heart sounds. Absent: systolic murmur, diastolic murmur, rubs, gallop, clicks Extremities exam: Present: normal inspection, full ROM, normal capillary refill. Absent: tenderness, pedal edema, joint swelling, calf tenderness Neurological exam: Present: alert, oriented X3, CN II-XII intact Psychiatric exam: Present: normal affect, normal mood Skin exam: Present: warm, dry, intact, normal color. Absent: rash Course Vital Signs 07/31/20 12:02 Temperature 98.0 F Pulse Rate 73 Respiratory 20 Rate Blood Pressure 119/73 O2 Sat by Pulse 97 Oximetry Medical Decision Making - Medical Decision Making 25-year-old female complaining of suicidal ideations with a plan. Urine drug screen and alcohol breath asked ordered. Case discussed with Dr. Osorio. EPS will be notified. Patient will be admitted. - Lab Data Lab Results 07/31/20 07/31/20 Range/Units 12:35 12:35 Urine HCG, Qual Not Detected (Not Detectd) Urine Opiates Screen Not Detected (NotDetected) Ur Oxycodone Screen Not Detected (NotDetected) Urine Methadone Screen Not Detected (NotDetected) Ur Propoxyphene Screen Not Detected (NotDetected) Ur Barbiturates Screen Not Detected (NotDetected) U Tricyclic Antidepress Not Detected (NotDetected) Ur Phencyclidine Scrn Not Detected (NotDetected) Ur Amphetamines Screen Not Detected (NotDetected) U Methamphetamines Scrn Not Detected (NotDetected) U Benzodiazepines Scrn Not Detected (NotDetected) Urine Cocaine Screen Not Detected (NotDetected) U Marijuana (THC) Screen Detected H (NotDetected) Disposition Clinical Impression: Acute anxiety, Suicidal ideation, Bipolar disorder Disposition: ADMITTED IP TO THIS HOSP Condition: Stable Is patient prescribed a controlled substance at d/c from ED?: No Referrals: None,Stated [Primary Care Provider] - 1-2 days Time of Disposition: 14:08
[2020-07-31 13:22] LABS: Amphetamine Screen,Urine Not Detected (NotDetected); Barbiturate Screen,Urine Not Detected (NotDetected); Benzodiazepines Screen,Urine Not Detected (NotDetected); Cocaine Screen,Urine Not Detected (NotDetected); Methadone Screen, Urine Not Detected (NotDetected); Opiate Screen,Urine Not Detected (NotDetected); Oxycodone Screen, Urine Not Detected (NotDetected); Phencyclidine Screen,Urine Not Detected (NotDetected); Tricyclic Antidepressant,Urine Not Detected (NotDetected); Urn Cannabinoid Scrn Detected (NotDetected)
[2020-07-31] MEDS ORDERED: LORazepam 1 MG TAB PO PRN (16:50)
[2020-07-31] MEDS ORDERED: ACETAMINOPHEN TAB 325 MG TAB PO PRN (16:50)
[2020-07-31] MEDS ORDERED: MAG HYDROX/AL HYDROX/SIMETH 30 ML CUP PO PRN (16:50)
[2020-07-31] MEDS ORDERED: MAGNESIUM HYDROXIDE 2,400 MG/10 ML CUP PO PRN (16:50)
[2020-07-31] MEDS ORDERED: LORazepam 2 MG/ML INJ IM PRN (16:55)
[2020-07-31] MEDS ORDERED: HALOPERIDOL LACTATE 5 MG/ML 1 ML VIAL IM PRN (16:56)
[2020-07-31] MEDS ORDERED: atenoloL 25 MG TAB PO SCH (21:00)
[2020-07-31] MEDS ORDERED: PRAZOSIN 1 MG CAP PO SCH (21:00)
--- NOTE | 2020-07-31 23:07 | P.CONS ---
History of Present Illness - Reason for Consult Consult date: 07/31/20 - History of Present Illness The patient is a 25-year-old female with a PMH of anxiety, depression, and asthma who presented to the emergency room with complaints of depression and suicidal ideation. She reported in the emergency room that since her medications were changed, she had worsening suicidal ideation. She was admitted to the [facility] where she was seen and evaluated. The patient reported chronic mild abdominal pain usually brought on with certain kinds of food with intermittent episodes of diarrhea. She denied additional complaints. Denied chest pain, shortness of breath, fever, chills, cough, nausea, vomiting, dizziness. Urine toxicology in the emergency room was positive for marijuana. The patient denied using tobacco. Review of Systems Pertinent positives and negatives as discussed in HPI, a complete review of systems was performed and all other systems are negative. Past Medical History Past Medical History: Asthma, COPD, GERD/Reflux, Pneumonia Additional Past Medical History / Comment(s): CURRENT: N & V, RIGHT UPPER QUANDRANT PAIN; OBS 03/16/20. Herniated esoph, MIGRAINES, colitis History of Any Multi-Drug Resistant Organisms: None Reported Past Surgical History: Cholecystectomy Past Anesthesia/Blood Transfusion Reactions: Motion Sickness Additional Past Anesthesia/Blood Transfusion Reaction / Comm: NEVER HAD GENERAL ANESTHESIA. Past Psychological History: Anxiety, Depression Additional Psychological History / Comment(s): currently gets counseling yumiko purcell at [facility] in [place]. Is an ongoing tobacco smoker. Did not relate to recreational drug use. Smoking Status: Current every day smoker Past Alcohol Use History: Rare Additional Past Alcohol Use History / Comment(s): STARTED SMOKING AT AGE 14 SMOKES 1/2 PPD Past Drug Use History: Marijuana - Past Family History Father Family Medical History: No Reported History Additional Family Medical History / Comment(s): SEASONAL DEPRESSION Mother Family Medical History: COPD Additional Family Medical History / Comment(s): LEAKY HEART VALVE. ON MOMS SIDE OF FAMILY SKIN CANCER Sister(s) Family Medical History: No Reported History, Pulmonary Embolus Medications and Allergies Home Medications Medication Instructions Recorded Confirmed Type Omeprazole 40 mg PO DAILY 06/03/20 07/31/20 History Escitalopram [Lexapro] 5 mg PO DAILY 07/31/20 07/31/20 History Prazosin HCl 1 mg PO HS 07/31/20 07/31/20 History atenoloL [Atenolol] 25 mg PO HS 07/31/20 07/31/20 History Allergies Allergy/AdvReac Type Severity Reaction Status Date / Time latex Allergy Rash/Hives Verified 07/31/20 17:52 adhesive AdvReac Rapid Verified 07/31/20 17:52 Heart Rate Physical Exam Vitals: Vital Signs Temp Pulse Pulse Resp BP BP Pulse Ox 07/31/20 21:08 82 18 138/70 07/31/20 18:05 96.8 F L 07/31/20 17:36 98.2 F 72 20 104/50 07/31/20 12:02 98.0 F 73 20 119/73 97 Intake and Output 07/31/20 07/31/20 08/01/20 14:59 22:59 06:59 Other: Weight 70.307 kg 70.307 kg General: non toxic, no distress, appears at stated age, normal weight Derm: no unusual rashes/lesions no unusual ecchymoses, warm, dry Head: atraumatic, normocephalic, symmetric Eyes: EOMI, no lid lag, anicteric sclera, pupils equal round reactive to light ENT: Nose and ears atraumatic, no thrush, no pharyngeal erythema Neck: No thyromegaly, no cervical lymphadenopathy, trachea midline, supple Mouth: no lip lesion, mucus membranes moist Cardiovascular: S1S2 reg, no murmur, positive posterior tibial pulse bilateral, no edema, capillary refill less than 2 seconds Lungs: CTA bilateral, no rhonchi, no rales , no accessory muscle use Abdominal: soft, nontender to palpation, no guarding, no appreciable organomegaly, normal bowel sounds Ext: no gross muscle atrophy, muscle strength 5 out of 5 in all 4 extremities grossly, no contractures, Neuro: CN II-XI grossly intact, light touch intact all 4 extremities, finger to nose within normal limits, Psych: Alert, oriented, appropriate affect Results Labs: Abnormal Lab Results - Last 24 Hours (Table) 07/31/20 Range/Units 12:35 U Marijuana (THC) Screen Detected H (NotDetected) Assessment and Plan Plan: Chronic mild abdominal pain, diarrhea -Advised patient to use OTC probiotics and advised against long-term use of PPIs Depression, SI -As per psychiatry Marijuana abuse -Advised on the importance of cessation Thank you for allowing us to participate in the care of this patient. We will follow peripherally. Do not hesitate to contact us with questions. Someone can be reached from the [facility] hospitalist group at all hours of the day at [phone].
[2020-08-01 06:46] LABS: Basophils % (A) 1 %; Eosinophils # (A) 0.1 k/uL (0-0.7); Eosinophils % (A) 2 %; HCT 44.7 % (34.0-46.0); HGB 15.1 gm/dL (11.4-16.0); Lymphocytes # (A) 1.9 k/uL (1.0-4.8); Lymphocytes % (A) 31 %; MCHC 33.7 g/dL (31.0-37.0); MCV 91.9 fL (80.0-100.0); Mean Platelet Volume 7.5; Monocytes # (A) 0.4 k/uL (0-1.0); Monocytes % (A) 6 %; Neutrophils # (A) 3.7 k/uL (1.3-7.7); Neutrophils % (A) 59 %; Platelet Count 280 k/uL (150-450); RBC 4.87 m/uL (3.80-5.40); RDW 12.8 % (11.5-15.5); WBC 6.3 k/uL (3.8-10.6)
[2020-08-01 06:53] LABS: ALT 34 U/L (4-34); AST 27 U/L (14-36); African American GFR (CKD) >90 (>60 ml/min/1.73 sqM); Albumin 4.3 g/dL (3.5-5.0); Alkaline Phosphatase 67 U/L (38-126); Anion Gap 10 mmol/L; Blood Urea Nitrogen 6 mg/dL (7-17); Calcium 9.5 mg/dL (8.4-10.2); Carbon Dioxide 29 mmol/L (22-30); Chloride 102 mmol/L (98-107); Cholesterol 215 mg/dL (<200); Glucose 71 mg/dL (74-99); HDL Cholesterol 37 mg/dL (40-60); LDL Cholesterol,Calculated 160 mg/dL (0-99); Non-African American GFR(CKD) >90 (>60 ml/min/1.73 sqM); Potassium 4.3 mmol/L (3.5-5.1); Sodium 141 mmol/L (137-145); Total Bilirubin 1.3 mg/dL (0.2-1.3); Total Protein 6.9 g/dL (6.3-8.2); Triglycerides 88 mg/dL (<150)
[2020-08-01] MEDS: ESCITALOPRAM 5 MG TAB PO SCH (07:50)
[2020-08-01] MEDS ORDERED: OLANZapine 5 MG TAB PO ONE (10:10)
[2020-08-01] MEDS ORDERED: BENZTROPINE MESYLATE 1 MG TAB PO ONE (10:15)
[2020-08-01] MEDS: cloNIDine HCL 0.1 MG TAB PO SCH ×2 (10:35→21:19)
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
[2020-08-01 13:52] LABS: Hemoglobin A1C 4.6 % (4.0-6.0)
[2020-08-01] MEDS: OLANZapine 5 MG TAB PO SCH ×2 (16:37→21:19)
[2020-08-01] MEDS: BENZTROPINE MESYLATE 0.5 MG TAB PO SCH (21:19)
[2020-08-02] MEDS: OLANZapine 5 MG TAB PO SCH ×2 (08:11→20:53)
[2020-08-02] MEDS: cloNIDine HCL 0.1 MG TAB PO SCH ×2 (08:11→20:53)
[2020-08-02] MEDS: BENZTROPINE MESYLATE 0.5 MG TAB PO SCH ×2 (08:11→20:53)
[2020-08-02] MEDS: ESCITALOPRAM 5 MG TAB PO SCH (08:11)
[2020-08-02] MEDS ORDERED: ESCITALOPRAM 5 MG TAB PO STA (09:33)
--- NOTE | 2020-08-02 11:12 | P.PN ---
Progress Note - Text Progress Note Date: 08/02/20 Interval History: Patient was seen wandering the hallways and was directable and agreeable to speak with typewriter tester in the office. Patient reports that she continues to feel depressed but is no longer expressing any suicidal or homicidal ideation, intention, and/or plan. She does express elevated anxiety and generalized feelings of uneasiness which she attributes to her history of trauma. The patient is not reporting any significant issues with sleep or appetite at this time. She is reporting no desire to self-harm. She is denying any auditory or visual hallucinations. She is not reporting any paranoia or other delusions. She has been adherent with her medications and is reporting sedation as a side effect of her current regimen of Zyprexa and Lexapro. The patient is open to a medication adjustment. Mental Status Exam: General Appearance: Patient appears to be stated age is alert, directable, and cooperative. Patient is dressed in a colorful hooded sweatshirt and is wearing glasses. Behavior: Patient is calmly seated without any agitated behavior. Psychomotor activity is normal. Eye contact is appropriate. Patient is appropriately tearful during the interview. Speech: Patient's speech is fluent and nonpressured. Speech is spontaneous, with normal rate, tone, and volume. Mood/Affect: Mood is improving mildly, affect is tearful. Suicidality/Homicidality: Patient denies any suicidal or homicidal ideation, intention, and/or plan. Perceptions: Patient denies any visual hallucinations and denies any auditory hallucinations Though content/process: There is no evidence of any delusional thought content and thought process is linear and goal-directed. Memory and concentration: AOX3, grossly intact for the purposes of this session Judgment and insight: Improving mildly Assessment Major depressive disorder, recurrent, severe Posttraumatic stress disorder Plan: -Patient continues to meet criteria for inpatient psychiatric admission for symptom stabilization and safety. Patient has signed adult voluntary form and medication consent and was placed in patient's chart. -Medications: We will decrease Zyprexa to 5 mg by mouth twice a day due to sedation. We will continue to manage depression and augment Lexapro with this medication. Increase Lexapro to 10 mg by mouth daily for depression/anxiety/PTSD Continue clonidine 0.1 mg by mouth twice a day for PTSD Continue Cogentin 0.5 mg by mouth twice a day for EPS side effects -When necessary Ativan and Haldol for agitation/aggression. -SW on board for discharge planning. Encouraged the patient to participate in milieu.
[2020-08-02 11:39] VITALS: BMI 26.0
[2020-08-03 08:27] VITALS: BP 117/60; PULSE 65; RESP 20; TEMP 98.1
[2020-08-03] MEDS: OLANZapine 5 MG TAB PO SCH (08:27)
[2020-08-03] MEDS: cloNIDine HCL 0.1 MG TAB PO SCH (08:27)
[2020-08-03] MEDS: BENZTROPINE MESYLATE 0.5 MG TAB PO SCH (08:27)
[2020-08-03] MEDS ORDERED: ESCITALOPRAM 10 MG TAB PO SCH (09:00)
[2020-08-03] MEDS ORDERED: BENZTROPINE MESYLATE 0.5 MG TAB PO PRN (09:33)
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
[2020-08-03] MEDS ORDERED: OLANZapine 10 MG TAB PO SCH (21:00)
== END 2020-08-03 13:15 | disposition home or self-care (01) | DRG 885 ==
LOC: EC 11:57 → 3MHU 16:48
PROVIDERS: ADMIT Psychiatry & Neurology Psychiatry; ATTEND Psychiatry & Neurology Psychiatry
DX: F31.9 Bipolar disorder, unspecified (principal); R45.851 Suicidal ideations; F43.10 Post-traumatic stress disorder, unspecified; F12.23 Cannabis dependence with withdrawal; F17.210 Nicotine dependence, cigarettes, uncomplicated; F41.0 Panic disorder [episodic paroxysmal anxiety]; J44.9 Chronic obstructive pulmonary disease, unspecified; K21.9 Gastro-esophageal reflux disease without esophagitis; Z62.810 Personal history of physical and sexual abuse in childhood; Z79.899 Other long term (current) drug therapy; Z80.8 Family history of malignant neoplasm of other organs or systems; Z81.8 Family history of other mental and behavioral disorders; Z82.5 Family history of asthma and other chronic lower respiratory diseases; Z86.16 Personal history of COVID-19
CPT/HCPCS: 80053; 80061; 80306; 81025; 82075; 83036; 84443; 85025; 87636; 99285

== ENCOUNTER 2022-10-09 17:00 | Emergency (ER) | payer BC, OTHER ==
[2022-10-09 17:07] VITALS: PULSE 87; RESP 16; TEMP 100.1
[2022-10-09 17:09] VITALS: BP 124/81
--- NOTE | 2022-10-09 17:55 | XR ---
EXAMINATION TYPE: XR hand complete LT DATE OF EXAM: 10/09/2022 5:34 PM INDICATION: Patient age:Female; 27 years old; Reason for study: Injury; PHH. COMPARISON: No relevant priors. TECHNIQUE: Frontal, lateral and oblique views of the left hand were obtained. FINDINGS: Normal alignment of the visualized joints. No acute osseous pathology is identified. No e vidence of soft tissue swelling. IMPRESSION: No acute osseous pathology.
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
== END 2022-10-09 20:26 | disposition home or self-care (01) ==
LOC: EC 17:00
DX: S63.602A Unspecified sprain of left thumb, initial encounter (principal); J44.9 Chronic obstructive pulmonary disease, unspecified; K21.9 Gastro-esophageal reflux disease without esophagitis; F41.9 Anxiety disorder, unspecified; F17.200 Nicotine dependence, unspecified, uncomplicated; F12.90 Cannabis use, unspecified, uncomplicated; F32.A Depression, unspecified; Z79.899 Other long term (current) drug therapy; Z91.09 Other allergy status, other than to drugs and biological substances; Z91.040 Latex allergy status; W50.1XXA Accidental kick by another person, initial encounter; Y99.0 Civilian activity done for income or pay
CPT/HCPCS: 29125; 99283

== ENCOUNTER 2023-06-20 18:11 | Emergency (ER) | payer BC ==
[2023-06-20 18:32] VITALS: BP 108/79; RESP 18
--- NOTE | 2023-06-20 19:01 | ED ---
Nausea/Vomiting/Diarrhea HPI - General Source: patient, RN notes reviewed Mode of arrival: ambulatory Limitations: no limitations <Sarah Helms - Last Filed: 06/20/23 19:01> <Lisa Almeida - Last Filed: 06/21/23 00:30> - General Chief complaint: Nausea/Vomiting/Diarrhea Stated complaint: Dehydration Time Seen by Provider: 06/20/23 18:20 - History of Present Illness Initial comments: 28-year-old female with a history of GERD and colitis presets to the emergency department with a chief complaint of nausea and vomiting over the past 3 days. States she has had a difficult time keeping down liquids and has not been consuming much food due to feeling nauseous. Patient also endorses fevers, but denies taking her temperature at home due to not having a thermometer. Denies hematochezia, hememesis, dark or tarry stools. States that her coworkers are also been experiencing similar symptoms. Patient is concerned because she is feeling weak and dehydrated, states that she has not urinated since yesterday evening. history of gallbladder removal surgery. (Sarah Helms) - Related Data Home Medications Medication Instructions Recorded Confirmed Omeprazole 40 mg PO DAILY 06/03/20 07/31/20 Previous Rx's Medication Instructions Recorded Benztropine Mesylate [Cogentin] 0.5 mg PO BID PRN 30 Days tab 08/03/20 Escitalopram [Lexapro] 10 mg PO DAILY 30 Days tab 08/03/20 OLANZapine [ZyPREXA] 10 mg PO HS 30 Days tab 08/03/20 cloNIDine HCL [Catapres] 0.1 mg PO BID 30 Days tab 08/03/20 Allergies Allergy/AdvReac Type Severity Reaction Status Date / Time latex Allergy Rash/Hives Verified 06/20/23 18:16 adhesive AdvReac Rapid Verified 06/20/23 18:16 Heart Rate Review of Systems ROS Other: All systems not noted in ROS Statement are negative. <Sarah Helms - Last Filed: 06/20/23 19:01> ROS Other: All systems not noted in ROS Statement are negative. <Lisa Almeida - Last Filed: 06/21/23 00:30> ROS Statement: Those systems with pertinent positive or pertinent negative responses have been documented in the HPI. Past Medical History Past Medical History: Asthma, COPD, GERD/Reflux, Pneumonia Additional Past Medical History / Comment(s): CURRENT: N & V, RIGHT UPPER QUANDR ANT PAIN; OBS 03/16/20. Herniated esoph, MIGRAINES, colitis History of Any Multi-Drug Resistant Organisms: None Reported Past Surgical History: Cholecystectomy Past Anesthesia/Blood Transfusion Reactions: Motion Sickness Additional Past Anesthesia/Blood Transfusion Reaction / Comment(s): NEVER HAD GENERAL ANESTHESIA. Past Psychological History: Anxiety, Depression Smoking Status: Current every day smoker Past Alcohol Use History: Rare Past Drug Use History: Marijuana - Past Family History Father Family Medical History: No Reported History Additional Family Medical History / Comment(s): SEASONAL DEPRESSION Mother Family Medical History: COPD Additional Family Medical History / Comment(s): LEAKY HEART VALVE. ON MOMS SIDE OF FAMILY SKIN CANCER Sister(s) Family Medical History: No Reported History, Pulmonary Embolus <Sarah Helms - Last Filed: 06/20/23 19:01> General Exam Limitations: no limitations General appearance: alert, in no apparent distress Head exam: Present: atraumatic, normocephalic, normal inspection Eye exam: Present: normal appearance, PERRL, EOMI. Absent: scleral icterus, conjunctival injection, periorbital swelling ENT exam: Present: normal exam, mucous membranes moist Neck exam: Present: normal inspection. Absent: tenderness, meningismus, lymphadenopathy Respiratory exam: Present: normal lung sounds bilaterally. Absent: respiratory distress, wheezes, rales, rhonchi, stridor Cardiovascular Exam: Present: regular rate, normal rhythm, normal heart sounds. Absent: systolic murmur, diastolic murmur, rubs, gallop, clicks GI/Abdominal exam: Present: soft, tenderness, normal bowel sounds (epigastric tenderness to deep palpation). Absent: distended, guarding, rebound Extremities exam: Present: normal inspection, full ROM, normal capillary refill. Absent: tenderness, pedal edema, joint swelling, calf tenderness Back exam: Present: normal inspection Neurological exam: Present: alert, oriented X3, CN II-XII intact Psychiatric exam: Present: normal affect, normal mood Skin exam: Present: warm, dry, intact, normal color. Absent: rash <Sarah Helms - Last Filed: 06/20/23 19:01> Course Vital Signs 06/20/23 06/20/23 06/20/23 18:13 21:50 23:12 Temperature 99.4 F 100.4 F H 98.6 F Pulse Rate 117 H 92 Respiratory 18 18 Rate Blood Pressure 108/79 O2 Sat by Pulse 99 97 Oximetry Medical Decision Making <Sarah Helms - Last Filed: 06/20/23 19:01> - Lab Data Result diagrams: 06/20/23 19:01 06/20/23 19:40 <Lisa Almeida - Last Filed: 06/21/23 00:30> - Medical Decision Making Was pt. sent in by a medical professional or institution (, PA, DENTAL NURSE, urgent care, hospital, or shelter...) When possible be specific @ -[No] Did you speak to anyone other than the patient for history (EMS, parent, family, police, friend...)? What history was obtained from this source @ -[No] Did you review nursing and triage notes (agree or disagree)? Why? @ -[I reviewed and agree with nursing and triage notes] Were old charts reviewed (outside hosp., previous admission, EMS record, old EKG, old radiological studies, urgent care reports/EKG's, shelter records)? Report findings @ -[No old charts were reviewed] Differential Diagnosis (chest pain, altered mental status, abdominal pain women, abdominal pain men, vaginal bleeding, weakness, fever, dyspnea, syncope, headache, dizziness, GI bleed, back pain, seizure, CVA, palpatations, mental health, musculoskeletal)? @ -Differential Abdominal Pain Women: Appendicitis, Cholecystitis, diverticulosis, ischemic bowel, pancreatitis, hepatitis, UTI, gastroenteritis, AAA, incarcerated hernia, bowel obstruction, constipation, inflammatory bowel, hepatitis, peptic ulcer disease, splenic infarction, perforated viscus, vulvitis, ovarian torsion, PID, kidney stone, placenta abruption, this is not meant to be an all-inclusive list EKG interpreted by me (3pts min.). @ -None X-rays interpreted by me (1pt min.). @ -[None done] CT interpreted by me (1pt min.). @ -[None done] U/S interpreted by me (1pt. min.). @ -[None done] What testing was considered but not performed or refused? (CT, X-rays, U/S, labs)? Why? @ -[None] What meds were considered but not given or refused? Why? @ -[None] Did you discuss the management of the patient with other professionals (professionals i.e. , PA, DENTAL NURSE, lab, RT, psych nurse, social work manager, field director, teacher, correctional security officer, case packer)? Give summary @ -[No] Was smoking cessation discussed for >3mins.? @ -[No] Was critical care preformed (if so, how long)? @ -[No] Were there social determinants of health that impacted care today? How? (Homelessness, low income, unemployed, alcoholism, drug addiction, transportation, low edu. Level, literacy, decrease access to med. care, penitentiary, rehab)? @ -[No] Was there de-escalation of care discussed even if they declined (Discuss DNR or withdrawal of care, Hospice)? DNR status @ -[No] What co-morbidities impacted this encounter? (DM, HTN, Smoking, COPD, CAD, Cancer, CVA, ARF, Chemo, Hep., AIDS, mental health diagnosis, sleep apnea, morbid obesity)? @ -[None] Was patient admitted / discharged? Hospital course, mention meds given and route, prescriptions, significant lab abnormalities, going to OR and other pertinent info. @ -28-year-old female chief complaint of diarrhea and vomiting. Patient given IV liter fluid bolus, IV push of Zofran and IV push of Protonix to aid in symptoms. CBC and CMP and Cepheid were ordered Undiagnosed new problem with uncertain prognosis? @ -[No] Drug Therapy requiring intensive monitoring for toxicity (Heparin, Nitro, Insulin, Cardizem)? @ -[No] Were any procedures done? @ -[No] Diagnosis/symptom? @ -[default] Acute, or Chronic, or Acute on Chronic? @ -[default] Uncomplicated (without systemic symptoms) or Complicated (systemic symptoms)? @ -[default] Side effects of treatment? @ -[No] Exacerbation, Progression, or Severe Exacerbation? @ -[No] Poses a threat to life or bodily function? How? (Chest pain, USA, MD, pneumonia, PE, COPD, DKA, ARF, appy, cholecystitis, CVA, Diverticulitis, Homicidal, Suicidal, threat to staff... and all critical care pts) @ -[No] (Sarah Helms) Patient reevaluated, improvement in nausea and vomiting. She reports continued diarrhea. She was given a 2 L fluid bolus. Laboratory studies obtained including CBC, CMP unremarkable. COVID, influenza, RSV negative. UA shows 2+ ketones likely due to dehydration. Patient will be discharged home with Zofran. Patient understanding agreeable with plan. Case discussed with Dr. Goodman. Diagnosis: Viral gastroenteritis Acute Complicated (Lisa Almeida) - Lab Data Lab Results 06/20/23 06/20/23 06/20/23 Range/Units 19:01 19:01 19:40 WBC 10.3 (3.8-10.6) k/uL RBC 4.83 (3.80-5.40) m/uL Hgb 14.5 (11.4-16.0) gm/dL Hct 43.6 (34.0-46.0) % MCV 90.2 (80.0-100.0) fL MCH 30.0 (25.0-35.0) pg MCHC 33.2 (31.0-37.0) g/dL RDW 13.4 (11.5-15.5) % Plt Count 269 (150-450) k/uL MPV 8.0 Sodium 138 (137-145) mmol/L Potassium 4.1 (3.5-5.1) mmol/L Chloride 107 (98-107) mmol/L Carbon Dioxide 23 (22-30) mmol/L Anion Gap 8 mmol/L BUN 13 (7-17) mg/dL Creatinine 0.60 (0.52-1.04) mg/dL Est GFR (CKD-EPI)AfAm >90 (>60 ml/min/1.73 sqM) Est GFR (CKD-EPI)NonAf >90 (>60 ml/min/1.73 sqM) Glucose 97 (74-99) mg/dL Calcium 8.8 (8.4-10.2) mg/dL Total Bilirubin 0.7 (0.2-1.3) mg/dL AST 23 (14-36) U/L ALT 20 (4-34) U/L Alkaline Phosphatase 75 (38-126) U/L Total Protein 7.2 (6.3-8.2) g/dL Albumin 4.2 (3.5-5.0) g/dL Urine Color Urine Appearance (Clear) Urine pH (5.0-8.0) Ur Specific [place] (1.001-1.035) Urine Protein (Negative) Urine Glucose (UA) (Negative) Urine Ketones (Negative) Urine Blood (Negative) Urine Nitrite (Negative) Urine Bilirubin (Negative) Urine Urobilinogen (<2.0) mg/dL Ur Leukocyte Esterase (Negative) Urine HCG, Qual (Not Detectd) Influenza Type A (PCR) Not Detected (Not Detectd) Influenza Type B (PCR) Not Detected (Not Detectd) RSV (PCR) Not Detected (Not Detectd) SARS-CoV-2 (PCR) Not Detected (Not Detectd) 06/20/23 06/20/23 Range/Units 22:25 22:25 WBC (3.8-10.6) k/uL RBC (3.80-5.40) m/uL Hgb (11.4-16.0) gm/dL Hct (34.0-46.0) % MCV (80.0-100.0) fL MCH (25.0-35.0) pg MCHC (31.0-37.0) g/dL RDW (11.5-15.5) % Plt Count (150-450) k/uL MPV Sodium (137-145) mmol/L Potassium (3.5-5.1) mmol/L Chloride (98-107) mmol/L Carbon Dioxide (22-30) mmol/L Anion Gap mmol/L BUN (7-17) mg/dL Creatinine (0.52-1.04) mg/dL Est GFR (CKD-EPI)AfAm (>60 ml/min/1.73 sqM) Est GFR (CKD-EPI)NonAf (>60 ml/min/1.73 sqM) Glucose (74-99) mg/dL Calcium (8.4-10.2) mg/dL Total Bilirubin (0.2-1.3) mg/dL AST (14-36) U/L ALT (4-34) U/L Alkaline Phosphatase (38-126) U/L Total Protein (6.3-8.2) g/dL Albumin (3.5-5.0) g/dL Urine Color Light Yellow Urine Appearance Clear (Clear) Urine pH 5.5 (5.0-8.0) Ur Specific [place] 1.023 (1.001-1.035) Urine Protein Negative (Negative) Urine Glucose (UA) Negative (Negative) Urine Ketones 2+ H (Negative) Urine Blood Negative (Negative) Urine Nitrite Negative (Negative) Urine Bilirubin Negative (Negative) Urine Urobilinogen <2.0 (<2.0) mg/dL Ur Leukocyte Esterase Negative (Negative) Urine HCG, Qual Not Detected (Not Detectd) Influenza Type A (PCR) (Not Detectd) Influenza Type B (PCR) (Not Detectd) RSV (PCR) (Not Detectd) SARS-CoV-2 (PCR) (Not Detectd) Disposition <Sarah Helms - Last Filed: 06/20/23 19:01> Is patient prescribed a controlled substance at d/c from ED?: No <Lisa Almeida - Last Filed: 06/21/23 00:30> Clinical Impression: Viral gastroenteritis Disposition: HOME SELF-CARE Condition: Stable Instructions (If sedation given, give patient instructions): Acute Nausea and Vomiting (ED) Referrals: Daria Manzanares DO [Primary Care Provider] - 1-2 days
[2023-06-20 19:19] LABS: HCT 43.6 % (34.0-46.0); HGB 14.5 gm/dL (11.4-16.0); MCHC 33.2 g/dL (31.0-37.0); MCV 90.2 fL (80.0-100.0); Platelet Count 269 k/uL (150-450); RBC 4.83 m/uL (3.80-5.40); RDW 13.4 % (11.5-15.5); WBC 10.3 k/uL (3.8-10.6)
[2023-06-20] MEDS: SODIUM CHLORIDE 0.9% 1,000 ML IV STA ×2 (19:26→19:27)
[2023-06-20] MEDS: PANTOPRAZOLE 40 MG/10 ML VIAL IVP STA (19:27)
[2023-06-20] MEDS: ONDANSETRON 4 MG/2 ML VIAL IVP STA (19:27)
[2023-06-20 20:20] LABS: Potassium 4.1 mmol/L (3.5-5.1)
[2023-06-20 20:21] LABS: ALT 20 U/L (4-34); AST 23 U/L (14-36); African American GFR (CKD) >90 (>60 ml/min/1.73 sqM); Albumin 4.2 g/dL (3.5-5.0); Alkaline Phosphatase 75 U/L (38-126); Anion Gap 8 mmol/L; Blood Urea Nitrogen 13 mg/dL (7-17); Calcium 8.8 mg/dL (8.4-10.2); Carbon Dioxide 23 mmol/L (22-30); Chloride 107 mmol/L (98-107); Glucose 97 mg/dL (74-99); Non-African American GFR(CKD) >90 (>60 ml/min/1.73 sqM); Sodium 138 mmol/L (137-145); Total Bilirubin 0.7 mg/dL (0.2-1.3); Total Protein 7.2 g/dL (6.3-8.2)
[2023-06-20] MEDS: ONDANSETRON 4 MG ODT STARTER PACK 2 TAB BTL PO STA (20:45)
[2023-06-20] MEDS: KETOROLAC 15 MG/ML 1 ML VIAL IVP STA (20:46)
[2023-06-20] MEDS: ACETAMINOPHEN TAB 500 MG TAB PO STA (22:01)
[2023-06-20 22:44] LABS: Appearance,Urine Clear (Clear); Bilirubin,Urine Negative (Negative); Blood,Urine Negative (Negative); Color,Urine Light Yellow; Glucose,Urine (UA) Negative (Negative); Ketones,Urine 2+ (Negative); Leukocyte Esterase,Urine Negative (Negative); Nitrite,Urine Negative (Negative); PH, Urine 5.5 (5.0-8.0); Protein,Urine Negative (Negative); Specific Gravity,Urine 1.023 (1.001-1.035); Urobilinogen,Urine <2.0 mg/dL (<2.0)
[2023-06-20 23:22] VITALS: PULSE 92; TEMP 98.6
== END 2023-06-20 23:14 | disposition home or self-care (01) ==
LOC: EC 18:11
DX: A08.4 Viral intestinal infection, unspecified (principal); K21.9 Gastro-esophageal reflux disease without esophagitis; F17.200 Nicotine dependence, unspecified, uncomplicated; F12.90 Cannabis use, unspecified, uncomplicated; Z79.899 Other long term (current) drug therapy; Z91.09 Other allergy status, other than to drugs and biological substances; Z91.040 Latex allergy status
CPT/HCPCS: 51798; 36415; 80053; 85027; 81003; 81025; 87636; 99284; 96374; 96375 ×2; 96361; J2405; J1885; S0119; C9113